=== PATIENT | male | born 1945 | race Caucasian/White ===

== ENCOUNTER 2024-07-03 15:37 | Inpatient (IN) | payer MEDICARE, SELFPAY ==
[2024-07-03] VITALS (13 sets, daily range): BP systolic 100–144; BP diastolic 56–84; PULSE 58–98; RESP 16–20; TEMP 36.1–36.3; O2SAT 96–100; BMI 26.3; BMI 30.4
--- NOTE | ~2024-07-03 | CT_ITS ---
CT brain wo con Ordering provider: Heidy Ugalde MD History: 79 years Male with . fall . Comparison: None. Technique: CT of the head without contrast. Radiation reduction technique utilized. The dose-length p roduct was 681 mGy-cm. FINDINGS: BRAIN PARENCHYMA AND CSF SPACES: Mild leukoaraiosis and diffuse cortical atrophy. Mild atheromatous d isease. No midline shift, mass effect or hemorrhage. The brain parenchyma and CSF spaces are otherwi se normal. VISUALIZED PARANASAL SINUSES: Bilateral maxillary sinus disease. MASTOIDS: Well aerated. BONES: Small osteoma in the right frontal bone. Hyperostosis frontalis interna. Otherwise, The bones appear intact. SOFT TISSUES: Visualized nasopharynx is normal. Superficial soft tissues are normal. Band is seen ar ound the left eye globe. IMPRESSION: No acute intracranial findings. Reviewed, dictated and finalized at location A.
--- NOTE | ~2024-07-03 | CT_ITS ---
EXAMINATION: CT chest abdomen pelvis wo con DATE: 07/07/2024 19:47 INDICATION: elevated lactic with unknown infection etio . TECHNIQUE: Computed tomography (CT) of the chest, abdomen, and pelvis was performed without intraveno us contrast. Automated exposure control and iterative reconstruction technique were employed. The dos e-length product was 1174.31 mGy-cm. COMPARISON: X-ray chest, 07/03/2024 FINDINGS: Exam limited by beam hardening from arm down positioning. CHEST: Thoracic aorta: Mild ectasia of the ascending and descending thoracic aorta. Lung parenchyma and airways: Mild bibasilar scar/atelectasis. Calcified granulomas. Thoracic inlet, axillae and chest wall: No mass. Moderate symmetric gynecomastia. No axillary lymphad enopathy. Mediastinum: No mass or lymphadenopathy. Heart and pericardium: Mild cardiomegaly. No pericardial effusion. Left chest AICD lead in good posit ion. Coronary artery calcifications: Moderate. Coronary stent. Pleura: Small bilateral pleural fluid collections. Thoracic bones: No acute osseous finding in the chest. ABDOMEN/PELVIS: Liver: Mildly enlarged. Indeterminate density 2.3 cm left lobe lesion. Biliary/Gallbladder: Surgical clips are present in the gallbladder fossa however the gallbladder megha ins. Gallbladder lumen is filled by hyperdense material. No bile duct dilation. Pancreas: Moderate pancreatic atrophy. Spleen: Normal. Adrenals:No mass. Kidneys: No suspicious mass, obstructing stone, or hydronephrosis. Simple left midpole cyst. GI tract: No small or large bowel dilation. Uncomplicated appearing small bowel anastomosis. Normal a ppendix. Mild rectal wall thickening with surrounding inflammatory change. Diverticulosis without div erticulitis. Mesentery/Peritoneum: No ascites, mass, or free air. Retroperitoneum: No mass Atherosclerotic calcifications of intra-abdominal arterial vessels. Pelvis: Distended urinary bladder with mild inflammatory change. Prostatomegaly with calcification. Soft Tissues: Soft tissues and body wall unremarkable. Abdominopelvic bones: No acute osseous finding in the abdomen/pelvis. Chronic appearing mild anterio r wedge deformity at L1. IMPRESSION: Small bilateral pleural effusions. Hepatomegaly. Indeterminate density 2.3 cm left liver lobe lesion, consider MRI of the liver for further characteri zation. Rectal wall thickening as can be seen with proctitis. Distended urinary bladder with mild inflammation. Correlate for symptoms of urinary retention and wit h urinalysis. Reviewed, dictated and finalized at location K. IMPRESSION: Small bilateral pleural effusions. Hepatomegaly. Indeterminate density 2.3 cm left liver lobe lesion, consider MRI of the liver for further characterization. Rectal wall thickening as can be seen with proctitis. Distended urinary bladder with mild inflammation. Correlate for symptoms of uri nary retention and with urinalysis.
--- NOTE | ~2024-07-03 | CT_ITS ---
EXAMINATION: CT brain wo con DATE: 07/07/2024 10:05 INDICATION: Altered mental status TECHNIQUE: Computed tomography (CT) of the head was performed without intravenous contrast. The dose- length product was 605.33 mGy-cm. Automated exposure control and iterative reconstruction technique w ere employed. COMPARISON: CT dated 07/03/2024 FINDINGS: Mild generalized atrophy. There are scattered mild periventricular and subcortical white ma tter changes, most likely related to small vessel ischemic disease (microangiopathy). There is intrac ranial atherosclerosis. No ventriculomegaly or midline shift. Basilar cisterns are patent. There is m ucosal thickening of the paranasal sinuses. Mastoids are pneumatized. No depressed skull fractures. N o acute infarction, hemorrhage, mass or mass effect. IMPRESSION: 1. No acute intracranial abnormality. 2: Moderate sinus disease primarily involving the left maxillary sinus. Reviewed, dictated and finalized at location A.
--- NOTE | ~2024-07-03 | XR_ITS ---
XR chest 1V portable 07/07/2024 09:42 Indication: Altered mental status. Drop in heart rate. Procedure: AP portable chest Comparison: 07/03/2024 Findings: Cardiomegaly. No focal air space disease, pulmonary edema, pleural effusion or suspected pn eumothorax. Pacemaker lead in the right ventricle. Impression: 1: No acute cardiopulmonary disease. Reviewed, dictated and finalized at location A. Impression: 1: No acute cardiopulmonary disease.
--- NOTE | ~2024-07-03 | CT_ITS ---
( CT cervical spine wo con Ordering provider: Heidy Ugalde History: . fall . Comparison: None. Technique: CT of the cervical spine was performed without contrast. Sagittal and coronal reformatted images were also obtained and reviewed. Automated exposure control and iterative reconstruction robson hnique were employed. The dose-length product was 371.65 mGy-cm. FINDINGS: VERTEBRAE: No subluxation or acute fracture. The occipital condyles are intact. DISC SPACES: Narrowing of the disc C4-C5, C5-C6 and C6-C7. Multilevel facet joint disease. Multilevel uncovertebral joint osteoarthritic changes. Bilateral narrowing of the foramina at the level of C4-C 5, C5-C6 PARASPINOUS SOFT TISSUES: Normal. Bilateral dependent atelectatic changes. IMPRESSION: No acute osseous abnormality cervical spine. Multilevel degenerative disc disease. Reviewed, dictated and finalized at location A.
--- NOTE | ~2024-07-03 | XR_ITS ---
XR chest 2V Ordering provider: Heidy Ugalde MD History: 79 years Male with . dizzy . Comparison: None. FINDINGS: MEDIASTINUM: The cardiac silhouette is slightly enlarged. Left unipolar pacemaker. LUNGS: No infiltrates, effusions or pneumothorax. OTHER: No free air under the diaphragm. Degenerative changes of the spine. IMPRESSION: No acute cardiopulmonary pathology. Reviewed, dictated and finalized at location A.
--- NOTE | 2024-07-03 15:52 | ECG_ITS ---
Test Date: 2024-07-03 16:08:44 Measurements Intervals [place] Rate: 57 P: -11 PA: 191 QRS: -26 QRSD: 146 T: 116 QT: 460 QTc: 451 Interpretive Statements SINUS BRADYCARDIA WITH OCCASIONAL VENTRICULAR PREMATURE COMPLEXES LEFT BUNDLE BRANCH BLOCK BASELINE ARTIFACT- I, AVR ABNORMAL ECG No previous ECG available for comparison Electronically Signed On 07-03-2024 16:12:56 CDT by Jim Dubois D.O.
[2024-07-03 16:18] LABS: Hematocrit 32.6 % (42.0-52.0); Immature Platelet Fraction Pct 4.6 % (0.9-11.2); Mean Corpuscular HGB Conc 33.7 g/dl (32-36); Mean Corpuscular Hemoglobin 34.6 pg (26-34); Mean Corpuscular Volume 102.5 fl (80-100); Mean Platelet Volume 10.3 fl (7.4-10.4); Platelet Count Result 99 k/mm3 (150-375); Red Blood Count 3.18 M/mm3 (4.6-6.20); Red Cell Distribution Width 16.3 % (11.5-14.5); White Blood Count 4.4 K/mm3 (4.5-10.0)
[2024-07-03 16:25] LABS: Alanine Aminotransferase 22 U/L (6-50); Alkaline Phosphatase 63 U/L (38-126); Anion Gap 12 mmol/L (4-12); Aspartate Amino Transferase 33 U/L (17-59); Bilirubin,Total 2.9 mg/dL (0.2-1.3); Blood Urea Nitrogen 8 mg/dL (9-20); Calcium 8.7 mg/dL (8.4-10.2); Carbon Dioxide 22 mmol/L (22-30); Chloride 105 mmol/L (98-107); Estimated CRCL calculation 58 ml/min; Estimated Glomerular Filt Rate > 60; Glucose 288 mg/dL (65-110); Potassium 3.4 mmol/L (3.4-5.0); Sodium 139 mmol/L (137-145)
[2024-07-03 16:50] LABS: Band Neutrophils Percent 7 % (0-6); Eosinophils Absolute Manual 0.04 K/mm3 (0.02-0.50); Eosinophils Percent Manual 1 % (0-4); Lymphocytes Absolute Manual 0.35 K/mm3 (1.1-4.5); Monocytes Percent Manual 7 % (3-9); Neutrophils Absolute Manual 3.69 K/mm3 (1.3-6.7); Neutrophils Percent Manual 77 % (46-73); Platelet Estimate Decreased (Adequate); Total Cells Counted 100
[2024-07-03 16:51] LABS: Anisocytosis 2+; Schistocytes None Seen
--- NOTE | 2024-07-03 17:02 | ED_ITS ---
HPI - Fall General Chief Complaint: Fall Stated Complaint: fall Time Seen by Provider: 07/03/24 16:51 History of Present Illness HPI Narrative: Patient getting cancer treatment and has felt more weak; while standing in line for his prescriptions, he got very dizzy/lightheaded and had +LOC, fell, hit his head. Still feels tired/weak and has a headache/nausea now after falling. Related Data Allergies Allergy/AdvReac Type Severity Reaction Status Date / Time No Known Allergies Allergy Verified 07/03/24 15:51 Review of Systems 2 Review of Systems: All systems reviewed & are unremarkable except as noted in HPI and below Exam 2 Narrative: EXAMINATION OF ORGAN SYSTEMS/BODY AREAS: Constitutional: Vital signs per nursing GENERAL: Appears uncomfortable HEAD: Laceration to the back of his head EYES: EOMI, conjunctiva normal, PERRL ENT: Hearing grossly intact LUNGS: Nonlabored breathing. HEART: [Regular rate and rhythm] ABD: [Soft], [nontender to palpation] EXT: Normal range of motion SKIN: [No rashes or lesions.] NEURO: [Alert and oriented x 3 per speaking very slowly, speech is clear. No gross focal sensory or strength deficits.] Unable to stand up without swaying PSYCH: Normal affect Course Vital Signs Vital signs: Vital Signs Temperature 97.4 F L 07/03/24 15:38 Pulse Rate 60 07/03/24 15:38 Respiratory Rate 18 07/03/24 15:38 Blood Pressure 114/67 07/03/24 15:38 Pulse Oximetry 98 07/03/24 15:38 Oxygen Delivery Room Air 07/03/24 15:38 Temperature 97.4 F L 07/03/24 15:38 Pulse Rate 59 L 07/03/24 18:00 Respiratory Rate 17 07/03/24 18:00 Blood Pressure 144/82 H 07/03/24 18:00 Pulse Oximetry 100 07/03/24 18:00 Oxygen Delivery Room Air 07/03/24 15:38 Procedures Laceration Laceration 1: Date: 07/03/24 Site: scalp Size (cm): 1 Description: linear Depth: simple, single layer Pre-repair: wound explored, irrigated and deep structures intact ====== Skin Level ====== Skin layer closed with: dermabond ====== Subcutaneous Layer ====== ====== Muscle Layer ====== ====== Tendon Layer ====== MDM - Fall MDM Narrative Medical decision making narrative: Patient states that he has been feeling slightly weak today when he was at the pharmacy picking up prescriptions and then felt lightheaded and passed out, when he woke up he was on the ground, he does have injury to his head with a laceration/bleeding. He has no focal neurologic deficits however does seem to be speaking slowly and appears quite tired, does appear to be concussed. Given pain medication, laceration is closed, CT head, C-spine obtained without acute bleeding or fracture, chest x-ray on my independent interpretation without any obvious consolidation. We did attempt to have him walk however he became extremely dizzy and nauseous and at this point I did feel he will need to be admitted since he cannot go home and he lives alone. Discussed with hospitalist for admission. I did also consider possible intracranial etiology causing symptoms but he does not have any vertigo at rest; regardless I do think he can benefit from an MRI in case there is an occult bleeding or anything causing his symptoms Lab Data 07/03/24 16:10 07/03/24 16:10 Labs: Lab Results 07/03/24 Range/Units 16:10 WBC 4.4 L (4.5-10.0) K/mm3 RBC 3.18 L (4.6-6.20) M/mm3 Hgb 11.0 L (14.0-18.0) g/dL Hct 32.6 L (42.0-52.0) % MCV 102.5 H (80-100) fl MCH 34.6 H (26-34) pg MCHC 33.7 (32-36) g/dl RDW 16.3 H (11.5-14.5) % Plt Count 99 L (150-375) k/mm3 MPV 10.3 (7.4-10.4) fl Immature Gran % (Auto) Not Reportable Neut % (Auto) Not Reportable Lymph % (Auto) Not Reportable Lassen % (Auto) Not Reportable Eos % (Auto) Not Reportable Baso % (Auto) Not Reportable Lymph # (Auto) Not Reportable Lassen # (Auto) Not Reportable Eos # (Auto) Not Reportable Baso # (Auto) Not Reportable Abs Immat Gran (auto) Not Reportable Absolute Neuts (auto) Not Reportable Absolute Nucleated RBC Not Reportable Total Counted 100 Neutrophils % (Manual) 77 H (46-73) % Band Neutrophils % 7 H (0-6) % Lymphocytes % (Manual) 8.0 L (18-44) % Monocytes % (Manual) 7 (3-9) % Eosinophils % (Manual) 1 (0-4) % Nucleated RBC % Not Reportable Abs Neuts (Manual) 3.69 (1.3-6.7) K/mm3 Abs Lymphs (Manual) 0.35 L (1.1-4.5) K/mm3 Abs Monocytes (Manual) 0.30 (0.1-0.90) K/mm3 Absolute Eos (Manual) 0.04 (0.02-0.50) K/mm3 Platelet Estimate Decreased (Adequate) % Immature Plt Fraction 4.6 (0.9-11.2) % Anisocytosis 2+ Schistocytes None seen Sodium 139 (137-145) mmol/L Potassium 3.4 (3.4-5.0) mmol/L Chloride 105 (98-107) mmol/L Carbon Dioxide 22 (22-30) mmol/L Anion Gap 12 (4-12) mmol/L BUN 8 L (9-20) mg/dL Creatinine 0.83 (0.7-1.3) mg/dL Estim Creat Clear Calc 58 ml/min Estimated GFR > 60 (59 - ) Glucose 288 H (65-110) mg/dL Calcium 8.7 (8.4-10.2) mg/dL Total Bilirubin 2.9 H (0.2-1.3) mg/dL AST 33 (17-59) U/L ALT 22 (6-50) U/L Alkaline Phosphatase 63 (38-126) U/L Total Protein 7.0 (6.3-8.2) g/dL Albumin 4.0 (3.5-5.1) g/dL Discharge Plan Discharge Clinical Impression: Concussion with loss of consciousness Patient Disposition: Still a Patient Condition: Stable
[2024-07-03] MEDS: ONDANSETRON INJ 4 MG/2 ML VIAL IV PUSH (17:17)
[2024-07-03] MEDS: ACETAMINOPHEN 325 MG TABLET 650 MG PO (17:18)
[2024-07-03] MEDS: LACTATED RINGERS 1,000 ML 999 ML IV CONT (17:18)
--- OUTSIDE RECORDS SUMMARY | 2024-07-03 17:23 | XMS_ITS | Encounter Summary ---
Author Organization [facility] Address [address] [place] [id number] Care Team Providers Care Register Repairer Name Role Phone Trupti Russo MD Primary Care Provider [phone] Encounter Details Date Type Department Care Team (Latest Contact Info) Description 01/23/2018 Abstract [facility] , Radha Pierre MD Social History Tobacco Use Types Packs/Day Years Used Date Smoking Tobacco: Never Assessed Sex and Gender Information Value Date Recorded Sex Assigned at Not on file Legal Sex Male 7:36 PM CDT Gender Identity Not on file Sexual Orientation Not on file documented as of this encounter Plan of Treatment Not on file documented as of this encounter Visit Diagnoses Not on filedocumented in this encounter Care Teams Register Repairer Relationship Specialty Start Date End Date Trupti Russo MD [address] [place] [id number] PCP - General 07/27/15 documented as of this encounter
--- OUTSIDE RECORDS SUMMARY | 2024-07-03 17:24 | XMS_ITS | Clinical Summary ---
Author Organization [facility] Address [address] [place] [id number] Care Team Providers Care Fur Polisher Name Role Phone Trupti Russo MD Primary Care Provider [phone] Social History Tobacco Use Types Packs/Day Years Used Date Smoking Tobacco: Never Assessed Sex and Gender Information Value Date Recorded Sex Assigned at Not on file Legal Sex Male 7:36 PM CDT Gender Identity Not on file Sexual Orientation Not on file Last Filed Vital Signs Vital Sign Reading Time Taken Comments Blood Pressure 160/86 12/05/2011 1:38 PM CDT Pulse - - Temperature - - Respiratory Rate - - Oxygen Saturation - - Inhaled Oxygen Concentration - - Weight 99.8 kg (220 lb) 12/05/2011 1:03 PM CDT Height 180.3 cm (5' 11 ) 12/05/2011 1:03 PM CDT Body Mass Index 30.68 12/05/2011 1:03 PM CDT Plan of Treatment Health Maintenance Due Date Last Done Comments Hepatitis C 02/27/1963 Annual Medicare Wellness Visit 2011 RSV Immunization or 60+ Years (1 - 1-dose 75+ series) 2021 COVID-19 Vaccine ( season) 2023 02/19/2021, 02/17/2021, 05/21/2020, Additional history exists DTaP, Tdap and Td Vaccines (3 - Td or Tdap) 09/15/2031 09/14/2021, 06/18/2007 Zoster Vaccines Completed 12/18/2018, 02/18, 03/15/2018 Pneumococcal Vaccine: 50+ Years Completed 09/14/2021 Meningococcal B Vaccine Aged Out No l onger eligible based on patient's age to complete this topic Meningococcal Vaccine Aged Out No lynn lorraine eligible based on patient's age to complete this topic RSV Immunizations Under 20 Months Aged Out No longer eligible based on patient's age to complete this topic Insurance [employer] Care Teams Fur Polisher Relationship Specialty Start Date End Date Trupti Russo MD [address] [phone] PCP - General 07/27/15
--- OUTSIDE RECORDS SUMMARY | 2024-07-03 17:24 | XMS_ITS | Patient Health Record ---
Author Organization [facility] Address [address] [place] [address] Care Team Providers Care Technology Sales Specialist Name Role Phone Iban Juan Primary Care Provider [phone] Reason For Referral No Information Immunizations Vaccine Route Administration Date Status Comme nts COVID-19 Moderna 1ST IM Intramuscular 04/23/2020 Administered Communications Tower Technician: Moderna. Patient tolerated well. COVID-19 Moderna 1ST IM Intramuscular 05/21/2020 Administered Plan Of Treatment No Information Insurance Providers Payer Name Payer Address Payer Phone Subscriber Number Group Number Insured Name Patient Relationship to Insured Coverage Start Date Coverage End Date [employer] [address] [place] [address] [id number] Sim Self - patient is the insured
--- OUTSIDE RECORDS SUMMARY | 2024-07-03 17:24 | XMS_ITS | Data Portability ---
Author Organization [facility] Darian Jules Address [address] [place] [address] Care Team Providers Care Health Care Recruiter Name Role Phone TRUPTI SWANN Primary Care Provider DEV John Mine Wirer OPSOPHIA EVANS Medical Oncologist [phone] ABBIE BLANK Brand Marketing Manager CORRINA LEYVA Urologist [facility] Sleep Medicine Assessment No assessment recorded. Plan of Treatment Reminders Order Date Submit Date Provider Last Modified By Organization Details Last Modified Time Details Appointments ANY 15 2024 01:00P ANNIE Col[place] Not available Not available Not available Lab HbA1c (hemoglob in A1c), blood 2024 025 [email or web address] In-Office Order, Internal Use Only DO Not Attach Compendium DO Not Attach Compendium, Do Not Delete/merge, [id number] 06/14/2024 11:01:13 glucose, fingersti ck, blood 2024 025 [email or web address] In-Office Order, Internal Use Only DO Not Attach Compendium DO Not Attach Compendium, Do Not Delete/merge, [id number] 06/14/2024 11:21:29 HbA1c (hemoglob in A1c), blood 2023 024 In-Office Order, Internal Use Only DO Not Attach Compendium DO Not Attach Compendium, Do Not Delete/merge, [id number] 01/25/2024 14:58:34 microalbu min, urine 2023 024 JOELLE In-Office Order, Internal Use Only DO Not Attach Compendium DO Not Attach Compendium, Do Not Delete/merge, [id number] 01/26/2024 13:12:18 HbA1c (hemoglob in A1c), blood 2023 024 JOELLE In-Office Order, Internal Use Only DO Not Attach Compendium DO Not Attach Compendium, Do Not Delete/merge, [id number] 09/22/2023 09:35:01 HbA1c (hemoglob in A1c), blood 2023 024 In-Office Order, Internal Use Only DO Not Attach Compendium DO Not Attach Compendium, Do Not Delete/merge, [id number] 06/21/2023 17:12:08 HbA1c (hemoglob in A1c), blood 2022 023 JOELLE In-Office Order, Internal Use Only DO Not Attach Compendium DO Not Attach Compendium, Do Not Delete/merge, [id number] 12/05/2022 17:47:38 glucose, fingersti ck, blood 2022 023 JOELLE In-Office Order, Internal Use Only DO Not Attach Compendium DO Not Attach Compendium, Do Not Delete/merge, [id number] 12/05/2022 17:47:51 Referral None recorded. Procedures None recorded. Surgeries None recorded. Imaging None recorded. Medication Orders metformin 500 mg tablet 2024 025 [facility] [place], [address], 06/14/2024 11:16:32 fluticaso ne propionat e 50 mcg/actua tion nasal spray,chantell pension 2023 024 [facility], [address] [place], [address], 01/25/2024 14:58:47 Jardiance 25 mg tablet 2023 025 [facility], [address] [place], [address], 06/14/2024 11:08:57 Rybelsus 7 mg tablet 2023 024 [email or web address] [facility], [address] [place], [address], 06/14/2024 11:08:56 Invokana 300 mg tablet 2023 024 [facility], [address] [place], [address], 01/25/2024 15:00:16 lisinopri l 20 mg tablet 2023 024 [facility], [address] [place], [address], 09/20/2023 12:59:52 Invokana 300 mg tablet 2023 024 [facility], [address] [place], [address], 01/25/2024 15:00:16 gabapenti n 100 mg capsule 2023 024 [facility], [address] [place], [address], 06/21/2023 17:19:21 Patient TargetsNo targets recorded. Patient Instructions Encounter Date Encounter Id Patient Instructions Last Modified By Organization Details Last Modified Time 06/21/2023 [id number] type 2 diabetes: care instructions Not available 06/21/2023 17:12:07 neuropathic pain : care instructions Not available 06/21/2023 17:19:16 09/20/2023 [id number] discussed care giving for spouse who as falls and dementia and tremors Not available 09/20/2023 13:03:00 01/25/2024 [id number] eustachian tube problems: care instructions Not available 01/25/2024 14:58:50 type 2 diabetes: care instructions Not available 01/25/2024 14:58:34 06/14/2024 [id number] A healthy lifestyle: care instructions [email or web address] Not available 06/14/2024 11:22:26 Reason for Referral None Reported. Results Created Date Observation Date Name Description Value Unit Range Abnormal Flag Note LastModifiedBy Organization Detail LastModifiedTime 12/06/1912/05/2022 gluco se, henrietta hernandez, blood Blood Glucose: mg/dl 169 Not Available In-Off ice Order Internal Use Only DO Not Attach Compendium DO Not Attach Compendium, Do Not Delete/merge, [id number] 12/05/2022 17:17:42 12/06/19 23 12/05/2022 HbA1c (hemo globi n A1c), blood HbA1c 9.5 Not Available In-Office Order Internal Use Only DO Not Attach Compendium DO Not Attach Compendium, Do Not Delete/merge, [id number] 12/05/2022 17:17:38 06/21/19 24 06/21/2023 HbA1c (hemo globi n A1c), blood HbA1c 9.3 Not Available In-Office Order Internal Use Only DO Not Attach Compendium DO Not Attach Compendium, Do Not Delete/merge, [id number] 06/21/2023 16:34:07 09/22/19 24 09/22/2023 HbA1c (hemo globi n A1c), blood HbA1c 9.0 Not Available In-Office Order Internal Use Only DO Not Attach Compendium DO Not Attach Compendium, Do Not Delete/merge, [id number] 09/20/2023 12:33:45 01/18/20 24 01/19/2024 BASIC METAB OLIC PANEL glucose 171 mg/dL 65-99 high Fasti ng refer ence inter nilton For someo ne witho ut known diabe yanet, a gluco se value >125 mg/dL indic ates that they may have diabe yanet and this shoul d be confi rmed with a follo w-up test. Not Available [facility] [address] [place], [address], 01/19/2024 14:25:31 01/18/20 24 01/19/2024 BASIC METAB OLIC PANEL urea nitrogen (BUN) 9 mg/dL 7-25 normal Not Available [facility] [address] [place], [address], 01/19/2024 14:25:31 01/18/20 24 01/19/2024 BASIC METAB OLIC PANEL creatinine 0.83 mg/dL 0.70-1 .28 normal Not Available [address], [address], 01/19/2024 14:25:31 01/18/20 24 01/19/2024 BASIC METAB OLIC PANEL eGFR 90 mL/mi n/1.7 3m2 > or = 60 normal Not Available [address], [address], 01/19/2024 14:25:31 01/18/20 24 01/19/2024 BASIC METAB OLIC PANEL BUN/creatini ne ratio SEE NOTE: (calc ) 6-22 Not Repor marcell: BUN and Creat inine are withi n refer ence range . Not Available [address], [address], 01/19/2024 14:25:31 01/18/20 24 01/19/2024 BASIC METAB OLIC PANEL sodium 143 mmol/ L 135-14 6 normal Not Available [address], [address], 01/19/2024 14:25:31 01/18/20 24 01/19/2024 BASIC METAB OLIC PANEL potassium 3.3 mmol/ L 3.5-5. 3 low Not Available [address], [address], 01/19/2024 14:25:31 01/18/20 24 01/19/2024 BASIC METAB OLIC PANEL chloride 104 mmol/ L 98-110 normal Not Available [address], [address], 01/19/2024 14:25:31 01/18/20 24 01/19/2024 BASIC METAB OLIC PANEL carbon dioxide 25 mmol/ L 20-32 normal Not Available [address] [place], [address], 01/19/2024 14:25:31 01/18/20 24 01/19/2024 BASIC METAB OLIC PANEL calcium 9.3 mg/dL 8.6-10 .3 normal Not Available [facility] [address] [place], [address], 01/19/2024 14:25:31 01/25/20 24 01/25/2024 HbA1c (hemo globi n A1c), blood HbA1c 6.7 Not Available In-Office Order Internal Use Only DO Not Attach Compendium DO Not Attach Compendium, Do Not Delete/merge, [id number] 01/25/2024 09:19:37 01/26/20 24 01/26/2024 micro album in, urine Microalbumin 20 Not Available In-Of fice Order Internal Use Only DO Not Attach Compendium DO Not Attach Compendium, Do Not Delete/merge, [id number] 01/25/2024 09:19:49 06/15/19 25 06/14/2024 gluco se, finge rstic k, blood Blood Glucose: mg/dl 267 Not Available In-Off ice Order Internal Use Only DO Not Attach Compendium DO Not Attach Compendium, Do Not Delete/merge, [id number] 06/14/2024 11:13:35 06/15/19 25 06/14/2024 HbA1c (hemo globi n A1c), blood HbA1c 9.3 Not Available In-Office Order Internal Use Only DO Not Attach Compendium DO Not Attach Compendium, Do Not Delete/merge, [id number] 06/14/2024 10:39:36 Result Notes None recorded. 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 Trupti Swann MD Attn: Accounting ,[address] [facility], [place], [address] , [place] - [facility] 3 17:30:36 Type 2 diabetes mellitus without complica tion 660619296 Active 2022 Trupti Swann MD Attn: Accounting ,[address] [facility], [place], [address] , [place] - [facility] 3 17:30:36 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 540323557 Active 2022 Liver metastas is Trupti Swann MD Attn: Accounting ,[address] [facility], [place], [address] , [place] [facility] 3 17:30:36 Divertic ulosis of colon 082137734 Active 2022 Trupti Swann MD Attn: Accounting ,[address] [facility], [place], [address] , [place] [facility] 3 18:34:53 Hemorrho ids 28595611 Active 2022 Trupti Swann MD Attn: Accounting ,[address] [facility], [place], [address] , [place] [facility] 3 18:35:00 History of adenomat ous polyp of colon 408614487 Active 2022 Trupti Swann MD Attn: Accounting ,[address] [facility], [place], [address] , [place] [facility] 3 12:13:52 Chronic systolic heart failure 683883383 Active 2022 with EF 26% in 2022 Trupti Swann MD Attn: Accounting ,[address] [facility], [place], [address] , [place] [facility] 4 08:58:55 Automati c implanta ble cardiac defibril lator in situ 174818145 Active 2020 Trupti Swann MD Attn: Accounting ,[address] [facility], [place], [place], [address] [place] [address] , [facility] 4 08:58:08 Coronary atherosc lerosis 742365766 Active 2022 Trupti Swann MD Attn: Accounting ,[address] [facility], [place], [place], [address] [place] [address] , [facility] 4 08:58:19 Nonsusta ined ventricu lar tachycar nicolasa 537133610 Active Trupti Swann MD Attn: Accounting ,[address] [facility], [place], [place], [address] [place] [address] , [facility] 4 08:58:12 Neuropat hy 612883107 Active 2023 Trupti Swann MD Attn: Accounting ,[address] [place], [place], [address] [place] [address] , [facility] 4 20:43:53 Uncontro lled type 2 diabetes mellitus 267150803 Active 2023 Trupti Swann MD Attn: Accounting ,[address] [facility], [place], [place], [address] [place] [address] , [facility] 4 20:43:48 Mixed hyperlip idemia 014876581 Active 2020 Trupti Swann MD Attn: Accounting ,[address] [place], [place], [address] [place] [address] , [facility] 4 08:13:30 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 Trupti Swann MD Attn: Accounting ,[address] [place], [place], [address] [place] [address] , [facility] 4 14:51:32 Visual disturba nce 19140505 Completed 201202/19/2014 Location : None;Sev erity: Moderate ;Progres s: Stable;A dded By: Trupti Swann;Add to Current Problems : NO Not Available [facility] 7 07:59:15 Feces contents abnormal 201870875 Completed 201212/07/2012 Location : None;Sev erity: Moderate ;Progres s: Stable;A dded By: Trupti Swann;Add to Current Problems : NO Not Available [facility] 7 07:59:15 Screenin g procedur e Completed 201304/20/2014 Location : None;Sev erity: Moderate ;Progres s: Stable;A dded By: Trupti Swann;Add to Current Problems : YES Trupti Swann MD Attn: Accounting ,[address] [place], [place], [address] [place] [address] , [place] [facility] 7 15:18:04 Screenin g for malignan t neoplasm of rectum Completed 201304/20/2014 Location : None;Sev erity: Moderate ;Progres s: Stable;A dded By: Trupti Swann;Add to Current Problems : YES Not Available [facility] 7 07:59:15 Screenin shant procedur e Completed 201501/16/2017 Location : None;Sev erity: Moderate ;Progres s: Stable;A dded By: Trupti Swann;Add to Current Problems : YES Trupti Swann MD Attn: Accounting ,[address] [place], [place], [address] [place] [address] , [place] [facility] 7 15:18:04 General symptom 859835568 Completed 201501/16/2017 Location : None;Sev erity: Moderate ;Progres s: Stable;A dded By: Trupti Swann;Add to Current Problems : YES Trupti Swann MD Attn: Accounting ,[address] [place], [place], [address] [place] [address] , [place] [facility] 7 15:18:12 Benign essentia l hyperten jessica 1294463 Completed 201202/19/2014 Location : None;Sev erity: Moderate ;Progres s: Stable;A dded By: Liz Raya;Add to Current Problems : NO Not Available [facility] 7 07:59:16 Hematoch ezia 022584445 Completed 201501/16/2017 Location : None;Sev erity: Moderate ;Progres s: Stable;A dded By: Liz Raya;Add to Current Problems : YES Trupti Swann MD Attn: Accounting ,[address] [place], [place], [address] [place] [address] , [place] [facility] 7 15:18:07 Fever 718859642 Completed 201512/10/2015 Location : None;Sev erity: Moderate ;Progres s: Stable;A dded By: Starr Chan; Add to Current Problems : YES Not Available [facility] 7 07:59:16 Essentia l hyperten jessica 17548436 Active 2013 Location : None;Sev erity: Moderate ;Progres s: Stable;A dded By: Vivian West i;Savanna dd to Current Problems : YES Trupti Swann MD Attn: Accounting ,[address] [place], [place], [address] [place] [address] , [place] [facility] 3 17:30:36 Residual foreign body in soft tissue 1058796 Completed 201101/05/2012 Location : None;Sev erity: Moderate ;Progres s: Stable;A dded By: Day Kelley;Add to Current Problems : NO Not Available [facility] 7 07:59:16 Hypertri glycerid emia 475981712 Active 2016 Trupti Swann MD Attn: Accounting ,[address] [place], [place], [address] [place] [address] 3 17:30:36 Notes:Some problems listed i n Documents: #[id number], #[id number] could not be added to this patient's chart. Please review these documents and add these problems to the patient's chart manually as needed. Problem Notes None recorded. Procedures Surgical History Date Name Laterality Status Provider Name and Address Organization Details Recorded Time 12/02/19 Prostate Biopsy completed Trupti Swann MD Attn: Accounting, [address] [place], [place], [address] [place] [address], [place] [facility] 12/01/2021 20:43:32 05/08/19 21 Aicd, dual chamber completed Trupti Swann MD Attn: Accounting, [address] [facility], [place], [address], [place] [facility] 05/10/2020 21:51:03 01/15/20 20 laparotomy completed Trupti Swann MD Attn: Accounting, [address] [facility], [place], [address], [facility] 12/05/2022 17:24:51 12/28/19 20 placement of stent in cardiac conduit completed Trupti Swann MD Attn: Accounting, [address] [facility], [place], [address], [facility] 12/05/2022 17:22:33 12/25/19 20 laparoscopic cholecystectomy completed Trupti Swann MD Attn: Accounting, [address] [place], [address], [facility] 12/27/2019 18:05:38 12/25/19 20 laparotomy completed Trupti Swann MD Attn: Accounting, [address] [place], [address], [facility] 12/05/2022 17:23:30 Imaging Results None recorded. Procedure Notes None recorded. Medical Equipment None Reported. Allergies Allergen ID Allergen Name Allergen Category Reaction Reaction Severity Criticality Documentation Date Start Date Code Code System Note Provider Name and Address Organization Details Recorded Time 050322 No known allergy (situatio n) Not available Not available Not available Not available 09/14/2023 22956 6003 SNOMED Not Available Not Available Not Available 07744 lisinopri l medicatio n Not available Not available Not available 03/23/20162015 57679 RxNorm React ion: Hypon atrem ia;Se verit y: Mild; Comme nt: Aller gy Type: Adver se React ion; Not Available Not Available Not Available Medications Name Sig Start Date Stop Date Status Note LastModified by Organization Details LastModified Time cyclobenza shahnaz 10 mg tablet take 1/2 tab at bedtime. Repeat 1/2 tab dose if not able to sleep in 30 minutes. 05/10 completed Not Available Not Available Not Available furosemide 40 mg tablet Take 1 tablet by mouth twice daily active Not Available Not Available No t Available atorvastat in 40 mg tablet TAKE 1 TABLET BY MOUTH ONCE DAILY 01/24 completed Not Available Not Available Not Available metformin 500 mg tablet TAKE 2 TABLETS BY MOUTH TWICE DAILY active Not Available Not Available No t Available atorvastat in 80 mg tablet 06/20 completed Not Available Not Available Not Available atorvastat in 20 mg tablet TAKE 1 TABLET BY MOUTH NIGHTLY active Not Available Not Available No t Available trazodone 50 mg tablet 1-2 at bedtime as needed for insomina 09/14 completed Not Available Not Available Not Available alprazolam 1 mg tablet 05/10 completed Not Available Not Available Not Available metoprolol succinate ER 50 mg tablet,ext ended release 24 hr TAKE 1 & 1/2 (ONE & ONE-HALF) TABLETS BY MOUTH ONCE DAILY 02/17 completed Not Available Not Available Not Available hydrocodon e 5 mg-acetami nophen 325 mg tablet 05/10 completed Not Available Not Available Not Available lisinopril 20 mg tablet TAKE 1 TABLET BY MOUTH ONCE DAILY active Not Available Not Available No t Available ondansetro n HCl 4 mg tablet TAKE 1 TABLET BY MOUTH EVERY 6 HOURS NEEDED FOR NAUSEA AND VOMITING 06/14 completed Not Available Not Available Not Available metoprolol succinate ER 100 mg tablet,ext ended release 24 hr TAKE 1 TABLET BY MOUTH ONCE DAILY active Not Available Not Available No t Available potassium chloride ER 10 mEq tablet,ext ended release Take 1 tablet every day by oral route. active Not Available Not Available No t Available clopidogre l 75 mg tablet TAKE 1 TABLET BY MOUTH ONCE DAILY 05/10 completed Not Available Not Available Not Available amlodipine 5 mg tablet Take 1 tablet every day by oral route. 01/17 completed Not Available Not Available Not Available ciprofloxa mumtaz 500 mg tablet 12/28 completed Not Available Not Available Not Available aspirin 81 mg tablet,del ayed release 81 mg by oral route. active Not Available Not Available No t Available spironolac tone 25 mg tablet TAKE 1 TABLET BY MOUTH ONCE DAILY active Not Available Not Available No t Available potassium chloride ER 20 mEq tablet,ext ended release(pa rt/cryst) TAKE 1 TABLET BY MOUTH TWICE DAILY 07/15 completed Not Available Not Available Not Available magnesium oxide 400 mg (241.3 mg magnesium) tablet TAKE 1 TABLET BY MOUTH ONCE DAILY active Not Available Not Available No t Available pantoprazo le 40 mg tablet,del ayed release TAKE 1 TABLET BY MOUTH ONCE DAILY active Not Available Not Available No t Available lisinopril 10 mg tablet TAKE 1 TABLET BY MOUTH EVERY 24 HOURS 06/14 completed Not Available Not Available Not Available nitroglyce rin 0.4 mg sublingual tablet DISSOLVE ONE TABLET UNDER THE TONGUE EVERY 5 MINUTES NEEDED FOR CHEST PAIN. DO NOT EXCEED A TOTAL OF 3 DOSES IN 15 MINUTES active Not Available Not Available No t Available niacin ER 500 mg capsule,ex tended release Take 1 capsule(s ) by mouth daily 12/09 completed RxNorm : 145245 ;Allow Substi tution : True Not Available Not Available Not Available aspirin 81 mg chewable tablet Chew 1 tablet(s) by mouth [facility] 12/09 completed RxNorm : 910121 ;Allow Substi tution : True Not Available Not Available Not Available gabapentin 100 mg capsule Take 1 capsule 3 times a day by oral route for 30 days. 2023 active Not Available Not Available Not Avai lable levofloxac in 500 mg tablet 04/06 completed Not Available Not Available Not Available fluticason e propionate 50 mcg/actuat ion nasal spray,susp ension Grimes 2 sprays every day by intranasa l route for 30 days. active Not Available Not Available No t Available Tylenol 650 mg tablet,ext ended release Take 2 tablets as needed by oral route. 09/14 completed Not Available Not Available Not Available metoprolol tartrate 25 mg tablet TAKE 1 TABLET BY MOUTH EVERY 12 HOURS 09/14 completed never taken this Not Available Not Available Not Available magnesium bid 09/14 completed Not Available Not Available Not Available famotidine 20 mg bid 05/10 completed Not Available Not Available Not Available amlodipine Take 5mg once daily 01/10 completed Not Available Not Available Not Available melatonin 5 mg tablet Take by oral route. 09/14 completed Not Available Not Available Not Available magnesium 400 mg (as magnesium oxide) capsule take one by mouth daily 07/15 completed Not Available Not Available Not Available Invokana 300 mg tablet Take 1 tablet every day by oral route. 01/24 completed Not Available Not Available Not Available Farxiga 10 mg tablet TAKE 1 TABLET BY MOUTH ONCE DAILY IN THE MORNING 06/20 completed Not Available Not Available Not Available potassium chloride ER 20 mEq tablet,ext ended release TAKE 1 TABLET BY MOUTH TWICE DAILY 09/16 completed Not Available Not Available Not Available Jardiance 25 mg tablet Take 1 tablet every day by oral route. 06/14 completed Not Available Not Available Not Available Rybelsus 7 mg tablet TAKE 1 TABLET BY MOUTH EVERY DAY ON AN EMPTY STOMACH WITH NO MORE THAN 4 OUNCES OF WATER. WAIT 30 MIN BEFORE EATING, DRINKING, OR TAKING OTHER ORAL MEDICATIO NS 06/14 completed Not Available Not Available Not Available Rybelsus 3 mg tablet Take 3 mg by oral route. 09/19 completed Not Available Not Available Not Available Orgovyx 120 mg tablet Take 1 tablet every day by oral route for 30 days. 09/16 completed Not Available Not Available Not Available Vitals Date Recorded Body height Body mass index (BMI) Body weight Body temperature Oxygen saturation Oxygen saturation in Arterial blood by Pulse oximetry Heart rate Systolic blood pressure Diastolic blood pressure Provider Name and Address Organization Details Last Updated DateTime 3 176.53 cm 28.3 kg/m2 50814.3 2 g 97.3 [degF] 96 % 96 % 75 /min 103 mm[Hg] 71 mm[Hg] Aga Wolfe [place] [facility] 3 17:01:23 Date Recorded Body height Body mass index (BMI) Body weight Body temperature Oxygen saturation Oxygen saturation in Arterial blood by Pulse oximetry Heart rate Systolic blood pressure Diastolic blood pressure Provider Name and Address Organization Details Last Updated DateTime 4 176.53 cm 29.5 kg/m2 55626.8 1 g 97.1 [degF] 99 % 99 % 68 /min 133 mm[Hg] 77 mm[Hg] Liz Raya [place] [facility] 4 16:26:42 Date Recorded Body height Body mass index (BMI) Body weight Body temperature Oxygen saturation Oxygen saturation in Arterial blood by Pulse oximetry Heart rate Systolic blood pressure Diastolic blood pressure Provider Name and Address Organization Details Last Updated DateTime 4 176.53 cm 29.5 kg/m2 47761.2 5 g 97.5 [degF] 96 % 96 % 78 /min 149 mm[Hg] 87 mm[Hg] Asha Garza MA [facility] 4 12:24:12 Date Recorded Systolic blood pressure Diastolic blood pressure Provider Name and Address Organization Details Last Updated DateTime 09/20/2023 150 mm[Hg] 83 mm[Hg] Trupti Swann MD Attn: Accounting,[address] [place], [address], [facility] 09/20/2023 12:41:36 Date Recorded Body height Body mass index (BMI) Body weight Body temperature Oxygen saturation Oxygen saturation in Arterial blood by Pulse oximetry Heart rate Systolic blood pressure Diastolic blood pressure Provider Name and Address Organization Details Last Updated DateTime 4 176.53 cm 27.6 kg/m2 06943.0 6 g 98.3 [degF] 96 % 96 % 72 /min 110 mm[Hg] 75 mm[Hg] Char Choudhary MA [facility] 4 14:31:25 Date Recorded Body height Body mass index (BMI) Body weight Oxygen saturation Oxygen saturation in Arterial blood by Pulse oximetry Body temperature Heart rate Systolic blood pressure Diastolic blood pressure Provider Name and Address Organization Details Last Updated DateTime 5 176.53 cm 27.4 kg/m2 80727.3 7 g 96 % 96 % 97.3 [degF] 68 /min 106 mm[Hg] 67 mm[Hg] Asha Garza MA [facility] 5 10:58:15 Social History Question Answer Notes LastModified by Organizat ion Details LastModified Time Tobacco Smoking Status Never Smoker Iris Camp MA [facility], [facility] 01/16/2017 15:01:42 Do You Have An Advance Directive? Yes Information not available 09/14/2021 What Is Your Level Of Alcohol Consumption? None Information not available 09/14/2021 Are You Blind Or Do You Have Difficulty Seeing? No Information not available 09/14/2021 What Is Your Level Of Caffeine Consumption? Occasional Information not available 09/14/2021 Are You Currently Employed? No Information not available 09/14/2021 Are You Deaf Or Do You Have Serious Difficulty Hearing? No Information not available 09/14/2021 What Type Of Diet Are You Following? REGULAR Information not available 09/14/2021 What Was The Date Of Your Most Recent Tobacco Screening? 06/14/2024 Information not available 06/14/2024 What Is Your Relationship Status? Information not available 09/14/2021 Do You Use Your Seat Belt Or Car Seat Routinely? Yes Information not available 09/14/2021 Do You Have Smoke And Carbon Monoxide Detectors In Your Home? Yes Information not available 09/14/2021 Are You Passively Exposed To Smoke? No Information no t available 09/14/2021 Do You Use Any Illicit Or Recreational Drugs? No Information not available 09/14/2021 Has Tobacco Cessation Counseling Been Provided? No Information not available 09/20/2023 Do You Or Have You Ever Used Any Other Forms Of Tobacco Or Nicotine? No [email or web address] Information not available 07/15/2022 Sex: Male Functional Status Question Answer Note LastModified by Organizat ion Details LastModified Time Are you able to care for yourself? Yes Information not available 09/14/2021 What is your exercise level? Occasional Information not available 09/14/2021 Mental Status None recorded. Family History Relationship Description Onset Age of this Age Resolved Age Notes LastModified by Organization Details LastModified Time Father Carotid artery stenosis 83 Not available 2021 12:00:00 Father Coronary arterioscler osis 83 triple bypass Not available 09/14/2021 12:00:19 Father Pneumonia 83 Not available 09/14/2021 12:00:44 Mother Diabetes mellitus 82 Not available 2021 12:01:01 Brother Sepsis 71 mono Not available 12:01:52 Brother Viral hepatitis C 71 Not available 05/2023 12:51:25 Medical History Condition Response Heart Attack (PR) Y Cancer Y Heart Failure Y Immunizations Vaccine Type Date Status Note Provider [place] ramos and Address Organization Details Recorded Time Influenza, high-dose, trivalent, PF 8 completed Trupti Swann MD Attn: Accounting,[address] [facility], [place], [place], [address] [place] [address], [place] [facility] 06/05/2023 08:55:12 zoster live 8 completed Trupti Swann MD Attn: Accounting,[address] [facility], [place], [place], [address] [place] [address], [place] [facility] 12/05/2022 17:30:43 COVID-19, mRNA, LNP-S, PF, 100 mcg/0.5mL dose or 50 mcg/0.25mL dose 1 completed ANNIE Tejada Attn: Accounting,204 1 [facility], [place], [place], [address] [place] [address], [place] [facility] 06/14/2024 11:02:34 COVID-19, mRNA, LNP-S, PF, 100 mcg/0.5mL dose or 50 mcg/0.25mL dose 1 completed ANNIE Tejada Attn: Accounting,[address] 1 [facility], [place], [place], [address] [place] [address], [place] [facility] 06/14/2024 11:02:34 COVID-19, mRNA, LNP-S, PF, 100 mcg/0.5mL dose or 50 mcg/0.25mL dose 1 completed ANNIE Tejada Attn: Accounting,204 1 [facility], [place], [place], [address] [place] [address], [place] [facility] 06/14/2024 11:02:34 zoster recombinant 8 completed Trupti Swann MD Attn: Accounting,204 1 [facility], [place], [address] [place] [address], [place] [facility] 06/05/2023 08:55:11 zoster recombinant 9 completed Trupti Swann MD Attn: Accounting,204 1 [facility], [place], [address] [place] [address], [place] [facility] 12/05/2022 17:30:43 influenza, unspecified formulation 0 completed Trupti Swann MD Attn: Accounting,204 1 [facility], [place], [address] [place] [address], [place] [facility] 12/05/2022 17:29:29 Pneumococcal conjugate PCV20, polysaccharide [id number] conjugate, adjuvant, PF 2 completed ANNIE Tejada Attn: Accounting,[address] 1 [facility], [place], [address] [place] [address], [place] [facility] 06/14/2024 11:02:34 COVID-19, mRNA, LNP-S, PF, 100 mcg/0.5mL dose or 50 mcg/0.25mL dose 1 completed Trupti Swann MD Attn: Accounting,204 1 [facility], [place], [address] [place] [address], [facility] 06/05/2023 08:55:12 Influenza, high-dose, trivalent, PF 9 completed Trupti Swann MD Attn: Accounting,204 1 [facility], [place], [address] [place] [address], [place] [facility] 06/05/2023 08:55:12 Influenza, adjuvanted, trivalent, PF 4 completed ANNIE Tejada Attn: Accounting,[address] 1 [facility], [place], [address] [place] [address], [place] [facility] 06/14/2024 11:02:16 Pneumococcal conjugate PCV20, polysaccharide [id number] conjugate, adjuvant, PF 4 completed ANNIE Tejada Attn: Accounting,[address] 1 [facility], [place], [address] [place] [address], [place] [facility] 06/14/2024 11:02:16 Influenza, split virus, quadrivalent, preservative 7 completed Not Available [facility] 04/06/2019 02:34:26 Td (adult), 5 Lf tetanus toxoid, preservative free, adsorbed 2 completed Carolyn Bliss [place] null, [place] [facility] 09/14/2021 12:37:31 Tdap 8 completed Trupti Swann MD Attn: Accounting,[address], [place], [address], [facility] - [facility] 12/05/2022 17:30:43 Past Encounters Encounter ID Performer Location Encounter Start Date Encounter Closed Date Diagnosis/Indication Diagnosis SNOMED-CT Code Diagnosis ICD10 Code Diagnosis Note [id number] Karon saucedo [facility] [address] [facility] [address] [place] [address] 01/07/2016 12:01:06 01/12/2016 09:17:20 Prostate specific antigen above reference range 105269262 R97.20 [id number] Trupti Swann MD [facility] [address] [facility] [address] [facility] [address] 01/16/2017 14:37:07 01/17/2017 10:38:47 Essential hypertension 26160219 I10 no dose change and see me yearly. You decline prostate rectal check and urologist referral but agree to recheck PSA which was hihg last year Administra tion of influenza vaccine 12095584 Z23 Screening for malignant neoplasm of prostate 492450672 Z12.5 [id number] Trupti Swann MD [facility] [address] [facility] [address] [place] [address] 12/05/2019 10:48:57 12/05/2019 15:20:44 Insomnia 608237874 G47.00 I think that the muscle relaxer for the neck will also help trigger a good nights rest-- call with nurse update tomorrow to let me know how the sleep goes tonight Nausea present 771565918 R11.0 clear liquids and easy to digest foods-- avoid greasy and fatty foods and drink extra water or gatorade-- call if not better once able to sleep Strain of neck muscle 36 8088526 S16.1XXA use muscle relaxer at bedtime-- take 1/2 tab -- and if not able to fall asleep in an 1/2 hour-- take the other half-- take once a day as needed and follow up with phone update to nurse tomorrow. I would like to get an XRAY neck if not better Essential hypertension 49615740 I10 self report that BP is fine wiht no medication and I advised to schedule an annual check up with in office BP check at [facility] e once YULI carvajal ns allow [id number] Trupti Swann MD [facility] [address] [place] [address] 12/16/2019 11:18:41 12/16/2019 15:58:21 Coronary arteriosclerosis in [place] artery 4936552638 107 I25.10 History of myocardial infarction 815264641 I25.2 STEMI on 12/07/2019 Insomnia 658317863 G47.0 0 call with nurse update tomorrow to let me know how the sleep goes tonight -he will call to let us know if able to sleep Long-term drug therapy 250531420 Z79.899 I would like to recheck sodium and other electrolyt es and renal functions- -don't eat anything for 4 hours before testing-- call to [facility] to set up the test- Hx of hyponatrem ia in the past when he was placed on LISINOPRIL 2015 [id number] STEVE Peters [facility] [address] [place] [address] 01/09/2020 10:53:34 01/10/2020 13:10:55 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 Stented co ronary artery 437598009 Z95.5 two stents placed a few weeks ago Gastrointe stinal hemorrhage 37900687 K92.2 will get CBC and cmp via HH Impaired mobility 183851 05 Z74.09 will need for blood draws PT ect. Anal fissure 29920472 K6 0.[address] Garza saw yesterday treating with lidocaine, nitro and steroidSee ing again on Jan 26thalso on miralax Complex renal cyst 39899 54769 3655414 N28.1 once he is feeling better, I rec US . CT showes high density right renal cyst stable from prior exam on 12/17 [id number] Trupti Swann MD [facility] [address] [place] [address] 09/14/2021 10:52:03 09/15/2021 14:09:39 Adult health examination 019765851 Z00.00 Health Risk Assessment collected and reviewed Blood gluc ose outside reference range 774873373 R73.09 will check for DM Essential hypertension 80397575 I10 BP is fine --no medication change made today and I advised cont care with Dr Meraz-- note lowering BP more may trigger more of orthostasi s/light headed feeling--w ith known CAD-- defer to carediolog ist Obstructiv e sleep apnea syndrome 62461823 G47.33 cont to follow up with sleep med semi annually and stable with use of CPAP Administra tion of diphtheria and tetanus vaccine 02105595 Z23 advised tetanus update and agreed Administra tion of pneumococcal vaccine 46427602 Z23 advised pneumonia vaccine and agreed Screening for malignant neoplasm of prostate 187901767 Z12.5 he would like PSA ' since a blood test 'He reports he would act if abnormal [id number] ANNIE Tejada [facility] [address] [facility] [address] [place] [address] 10/11/2021 14:52:20 10/11/2021 17:32:14 Type 2 diabetes mellitus without complication 929432114 E11.[address] in November. He has cut out all fruit juices-bef ore DM dx was drinking a gallon of orange juice and grape juice every week. We discussed easy ways to decrease blood sugar including limiting sugary beverages including fruit juices, sodas, and sweet teas. We also discussed cutting back on red meats and instead choosing leaner options such as chicken, fish, and turkey. We also discussed limiting salt intake and avoiding foods high in saturated fats like cheese, butter, and ice cream. We discussed acceptable caloric intake and exercise goals. I have given him some patient education to review over at home as well. Discussed with patient and spouse, the pathophysi ology of type II diabetes and insulin resistance . Discussed the potential complicati ons and vascular compromise of uncontroll ed blood sugars, such as stroke, CAD, retinopath y and kidney disease. We reviewed current HgA1C and goal of <7 A1C. Lipid goals discussed. Importance of UTD immunizati ons, yearly eye exams, and foot checks. We discussed in great length carb counting, label reading and her daily carbohydra te goals. Choosing healthy carbs like fruits, veggies, whole grains, and lean proteins. Avoiding any sugar in beverages, and how exercise is important in maintainin g healthy blood sugars and a healthier weight. We spent more than 25 minutes in this counseling session. Obesity 993945133 E66.9 [id number] Trupti Swann MD [facility] [address] [place] [address] 05/10/2022 13:38:39 05/11/2022 10:17:35 Heart disease 85158802 I51.[address]-- clarify meds and will order nitroglyce rin History of malignant neoplasm of small bowel 994104527 Z85.068 follows with oncologist regularly- - last visit was 05/09/22 Electrolyte imbalance 10 8208860 E87.8 had blood work with last oncologist visit and electrolyt es were OK Hypomagnesemia 321347684 E83.42 refill of magnesium was sent and he is advised to restart taking the supplement Type 2 nicolasa betes mellitus without complication 820914344 E11.9 will check the DM at this time to assure control is adequate-- consider FARXIGA [id number] ANNIE Tejada [facility] [address] [facility] [address] [place] [address] 07/15/2022 14:46:45 07/15/2022 17:07:40 Type 2 diabetes mellitus without complication 792114464 E11.9 Given hx of heart disease and a1c 8.7 will start on 10mg of Farxiga. F/U in 3 months for recheck.He does admit he drinks a lot of fruit juices and eats a lot of potatoes and red meats. We discussed easy ways to decrease blood sugar including limiting sugary beverages including fruit juices, sodas, and sweet teas. We also discussed cutting back on red meats and instead choosing leaner options such as chicken, fish, and turkey. We also discussed limiting salt intake and avoiding foods high in saturated fats like cheese, butter, and ice cream. We discussed acceptable caloric intake and exercise goals. I have given him some patient education to review over at home as well. 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 901637563 C61 Getting radiation M-T for primary prostate cancer has done 32 out of 45 treatments Liver metastasis - is on Orgovyx - getting f/u ultrasound on monday Obesity 564862247 E66.9 [id number] Trupti Swann MD [facility] [address] [place] [address] 09/16/2022 14:36:13 09/19/2022 10:00:27 Adult health examination 306088734 Z00.00 Health Risk Assessment collected and reviewed Screening for malignant neoplasm of colon 499067767 Z12.11 Essential hypertension 37260125 I10 BP is fine --no medication change made today and I advised cont care with Dr Meraz-- note lowering BP more may trigger more of orthostasi s/light headed feeling--w ith known CAD-- defer to cardiologi [facility] ed type 2 diabetes mellitus 474694190 E11.65 since FARXIGA is at max and Hgb A 1 C is high-- will add METFORMIN 500 mg po BID #180 and 3 refills [id number] Trupti Swann MD [facility] [address] [place] [address] 12/05/2022 15:36:26 12/06/2022 10:12:40 Type 2 diabetes mellitus without complication 027412269 E11.9 advised diabetes EYE exam which he reports he had in Mar-- will have staff to attempt to get the resultscon t RYBELSUS/ FARXIGA and METFORMINt he Hgb A1C is a bit better even though not a full 3 months since September 16 Check and the random glucose today is MUCH better than in the past Essential hypertension 83357303 I10 BP is fine --no medication change made today 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 381577338 C61 cont with care with urologist/ oncologist History of malignant neoplasm of small bowel 982509809 Z85.068 follows with oncologist regularly- - last visit was [id number] Trupti Swann MD [facility] [address] [place] [address] 06/21/2023 16:13:31 06/22/2023 10:05:24 Type 2 diabetes mellitus without complication 584070475 E11.9 non compliance with Farxiga and rybelsus was discussed due to high co pays for these meds-- he reports he is not taking-- I advised change to invokana from farxiga with RX to [facility] for the 340 B discount-- he agrees. I will consider adding rybelsus with 340 B if his Hgb A1C remains > 7.5 in 3 monthsDM education with rn long term care damage to heart/ brain/ kidneys/ nerves/ circulatio n with loss of limb/ life/ need for dialysis reviewed Neuropathy 810446156 G62 .9 pt ed and start GABAPENTIN and further plans pending outcomeadv ised to check feet daily for any sores or lesion and to wear shoes / footwear in his home and elsewhere Uncontroll ed type 2 diabetes mellitus 246078893 E11.65 since FARXIGA was cost is prohibitiv e and Hgb A 1 C is high-- I will change to 340 B INVONKA 300mg daily and we will continue the METFORMIN 500 mg po BID and he reports he is not able to afford the RYBELSUS Coronary atherosclerosis 771046361 I25.10 discussed and he reports no CHF complaints at this time-- has AICD due to CHF and low EF [id number] Trupti Swann MD [facility] [address] [place] [address] 09/20/2023 12:01:48 09/20/2023 16:14:19 Adult health examination 736686040 Z00.00 Health Risk Assessment collected and reviewedad vised will and living willuse hand railstrip prevention get rid of throw rugs Uncontroll ed type 2 diabetes mellitus 972933176 E11.65 I will restart INVONKA 300mg daily and we will continue the METFORMIN 500 mg po BID and increase the dose of RYBELSUS to 7 mg Essential hypertension 14096599 I10 BP is ai little high today --I advised a medication change today of lisinopril -- no change iof the BB or diuretic History of malignant neoplasm of small bowel 113114387 Z85.068 follows with oncologist regularly- - he is to get a PET scan next week in [place] [id number] Trupti Agne, MD [facility] [address] [place] [address] 01/25/2024 14:23:56 01/26/2024 12:31:19 Type 2 diabetes mellitus without complication 587782992 E11.9 applauded with for improved BG control Dysfunctio n of bilateral eustachian tubes 3410684477 498117 H69.93 [id number] ANNIE Tejada [facility] [address] [place] [address] 06/14/2024 10:26:56 06/17/2024 10:07:20 Uncontrolled type 2 diabetes mellitus 349299615 E11.65 Rybelsus and Jardiance too expensiveD oes not want to start injectable medication and has no desire to check blood sugarsHx of CHF but on cardiology report no clinical findings of CHFIncreas e metformin to 1000mg BIDFollow up in 3 weeks for FBS check Overweight 023435725 E66 .3 Health Concerns Section Related Observation LastModified by Organization Detai ls LastModified Time None Recorded Concern Status LastModified by Organization Details LastModified Time None Recorded Advance Directives Directive Y: Payers Encounter Date Sequence Insurance Name Policy Number Policy Puentes Covered Member ID Puentes Member ID Guarantor Name 12/05/2022 1 [employer] (MEDICARE REPLACEMENT/ ADVANTAGE - HMO) [id number] [place] [id number] [place] 06/21/2023 1 [employer] (MEDICARE REPLACEMENT/ ADVANTAGE - HMO) [id number] [place] [id number] [place] 09/20/2023 1 [employer] - [employer] (MEDICARE REPLACEMENT/ ADVANTAGE - HMO) [id number] [place] [id number] [place] 01/25/2024 1 [employer] - [employer] (MEDICARE REPLACEMENT/ ADVANTAGE - HMO) [id number] [place] [id number] [place] 06/14/2024 1 [employer] - [employer] (MEDICARE REPLACEMENT/ ADVANTAGE - HMO) [id number] [place] [id number] [place] Notes Date Note Type Note Provider Name and Address Organization Details Recorded Time 12/05/2022 text/html Diabetes F/UReported bypatient.Labs:last A1C result: 9.9 Context:seeing eye doctor regularly; checking feet regularly; not missing doses of medications; RYBELUS/ FARXIGA and METFORMIN Associated Symptoms:no weight gain; no weight loss; no sweats; no headaches; no confusion; no increased thirst; no increased appetite; no increased urination; no blurred vision; no numbness of feet; no calluses on feet;dizziness Trupti Swann MD Attn: [address]ing,[address] [place], [place], [address] [place] [address], [facility] 12/05/2022 18:57:01 06/21/2023 text/html Diabetes F/UReported bypatient.Context:s eeing eye doctor regularly; checking feet regularly; not missing doses of medications; no side effects from medications Associated Symptoms:numbness of feet(some pain and tingling also) Trupti Swann MD Attn: [address] [place], [address], [facility] 06/21/2023 20:44:41 09/20/2023 text/html here for an otf al check up Trupti Swann MD Attn: [address]ing[address] [place], [address], [facility] 09/20/2023 13:05:53 09/20/2023 text/html MAW 2Reported bypatient.Diet and Nutrition:healthy diet Fracture Risk:no history of fractures; no sudden unexplained fractures Concentration and Memory:no decreased concentrating ability; no memory lapses or loss; does not forget words Speech/Motor difficulties:no speech difficulties; no difficulty expressing formulated concepts; no difficulty with fine manipulative tasks; no difficulty writing/copying; no slowed reaction time; does not knock things over when trying to pick them up Hearing:no loss of hearing Vision:no vision problems Activities of Daily Living:able to bathe with limited or no assistance; able to contol urination and bowels; able to dress with limited or no assistance; able to feed self with limited or no assistance; able to get out of chair or bed with limited or no assistance; able to groom with limited or no assistance; able to toilet with limited or no assistance Instrumental Activities of Daily Living:able to do house work with limited or no assistance; able to grocery shop with limited or no assistance; able to manage medications with limited or no assistance; able to manage money with limited or no assistance; able to prepare meals with limited or no assistance; able to use the phone with limited or no assistance Falls Risk Assessment:no frequent falls while walking; no fall in the past year; no fall since last visit; no dizziness/vertigo Home Safety:no unsafe mary ellen hazzards; no unsafe stairs; working smoke/CO detectors; practicing 'safer sex'; no fire arms; has hand bars in the bathroom/shower; good lighting in the home Trupti Swann MD Attn: [address]ing,[address] [place], [address], [facility] 09/20/2023 13:05:53 01/25/2024 text/html Diabetes F/UReported bypatient.Labs:last A1C result: 9; 09/22/23 Context:seeing eye doctor regularly; checking feet regularly Associated Symptoms:no weight gain; no weight loss; no sweats; no headaches; no confusion; no increased thirst; no increased appetite; no increased urination; no blurred vision; no numbness of feet; no calluses on feet;dizziness; Only when getting up to fast. reports he had radioactive treatment on 01/11/24 at [facility] -- quarantined for one week-- had port placed in arm and removed after treatment-- he is due in Feb to be rechecked and planning 4 total treatments similar to one last month over the ext 8 months Trupti Swann MD Attn: [address]ing,[address] [place], [address], [facility] 01/25/2024 15:03:00 06/14/2024 text/html Diabetes F/UReported bypatient.Review finger sticks:fastin Labs:last A1C result: 6.7 (as of 01/25/2024) Context:seeing eye doctor regularly; checking feet regularly; taking aspirin daily; not missing doses of medications; no side effects from medications;home blood sugar range high Associated Symptoms:no weight gain; no weight loss; no dizziness; no sweats; no headaches; no confusion; no increased thirst; no increased appetite; no increased urination; no blurred vision; no numbness of feet; no calluses on feet Pt here because he was told he has high blood sugarsHad to stop his jardiance and rybelsus in march as they are too expensiveHe does not check his blood sugars and states I feel no different when my sugars are high or normal ANNIE Tejada Attn: Accounting,[address] [facility], [place], [address], [facility] 06/14/2024 12:13:41
[2024-07-03] MEDS: METOCLOPRAMIDE HCL INJ 10 MG/2 ML VIAL IV PUSH (18:12)
--- NOTE | 2024-07-03 18:14 | PC.NURSE ---
pt attempted to sit up on the side of the bed with this RN assisting and another tech. pt sat up and started swaying, pt was laid back down, EDP aware.
[2024-07-03 21:27] LABS: Glucose Point of Care 238 mg/dl (65-105)
[2024-07-03] MEDS: SODIUM CHLORIDE 0.9% IV 1,000 ML 100 ML IV CONT (21:54)
[2024-07-03] MEDS: ATORVASTATIN 20 MG TABLET PO (21:54)
[2024-07-03 22:30] LABS: Folic Acid 9.8 ng/mL (2.76->20); Vitamin B12 < 159.0 pg/mL (239-931)
--- NOTE | 2024-07-03 23:00 | PM.IMHP ---
H&P: HPI History of Present Illness Date/Time: 07/03/24 23:00 Chief Complaint: Passed out Narrative: Loquacious 79-year-old male with a past medical history of essential hypertension, type 2 diabetes mellitus, diabetic peripheral neuropathy, obstructive sleep apnea, with sounds like colon cancer with metastases to the liver since 2019 and recent diagnosis of hematologic cancer currently undergoing treatment for both cancers at [facility] who presented to the ER from [facility] via EMS after syncopal event. The patient reports that he had a ?slow start to the day?. He stated that he felt more tired than usual and just stayed in bed. When he got up he needed to go refill to of his medications so he went to [facility] pharmacy. 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 However he denies any sensation of vertigo. He states that he just knew that he was going to pass out. He subsequently had loss of consciousness and hit the back of his head and had a small laceration. He does report some neck discomfort but CT of the head and neck in the ER was negative for acute fracture process. He reports that he has had poor appetite since his initial diagnosis with his cancer and 2016 and subsequent secondary cancer in the fall. He states that he tries to get himself to eat small amounts due to a small stomach. He denies any recent nausea or vomiting. His blood sugars on arrival to the ER were in the 200s. Initially when he came to the ER had a mild headache and nausea. He felt like he was having some difficulty thinking but was alert oriented x4. His headache is since resolved. He feels better now that he has received IV fluids. He denies any precipitating chest pain, palpitations or shortness of breath. He has not had any lower extremity swelling. He does have chronic lower extremity peripheral neuropathy left greater than right due to his diabetes. He received 1 L of IV fluid hydration and a dose of Zofran and Phenergan in the ER. Orthostatics that were obtained after patient arrived to the medical floor were positive with a 10 point drop in systolic pressure from supine to sitting and a almost 15 point drop in sitting to standing. He denies any fevers or chills. He does feeling like he is talking in a well with some fullness in his ears for the last several months. He has not noticed any vertigo with this sensation but is getting frustrated with the change in his hearing. Source of information comes from ER physician report and patient report. The patient is a fair historian. No external medical records available for review beyond external medication report from pharmacy. Review of Systems Review of Systems: 12 systems were reviewed with pertinent positives and negatives per HPI. Except as documented in the HPI, all other systems were reviewed and are negative. 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 He and his were for 60 years prior to her . He lives in his own home and is independent in all activities of daily living including driving. He briefly smoked for 1 year when he was young. He denies any history of alcohol or illicit substance use. He has 1 daughter and 1 son. 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 Code status: Full code (patient reports he would not want to be on long-term ventilator, tracheostomy, feeding tube or dependent on others) Surrogate decision maker: Carmen (daughter) Smoking status: Never smoker Alcohol intake: never Substance use: never Do You Feel Safe in your Home?: Yes Lack of Transportation: No Lack of Food: Never True Current Housing: I Have Housing Concerned About Future Housing: No Difficulty Paying Gas/Electric Bills: No Difficulty Paying for Meds: No Currently Unemployed: No Education: Trade/Vocational Certificate Difficulty w/ Childcare or Family Care: No Spiritual care concerns: No Meds Home Medications and Allergies Home Medications ?Medication ?Instructions ?Recorded ?Confirmed ?Type aspirin 81 mg tablet,delayed 81 mg PO DAILY 07/03/24 07/03/24 History release atorvastatin 20 mg tablet 20 mg PO QPM 07/03/24 07/03/24 History furosemide 40 mg tablet 40 mg PO Q12H 07/03/24 07/03/24 History lisinopril 20 mg tablet 20 mg PO DAILY 07/03/24 07/03/24 History magnesium aspart,citrate,oxide 400 mg PO DAILY 07/03/24 07/03/24 History metformin 500 mg tablet 1,000 mg PO BID 07/03/24 07/03/24 History spironolactone 25 mg tablet 25 mg PO DAILY 07/03/24 07/03/24 History Allergies Allergy/AdvReac Type Severity Reaction Status Date / Time No Known Allergies Allergy Verified 07/03/24 15:51 Vital Signs Vital Signs - 24 hr 07/03/24 15:38 07/03/24 15:43 07/03/24 15:45 Temperature 97.4 F L Pulse Rate 60 Respiratory Rate 18 Blood Pressure 114/67 115/73 114/67 Pulse Oximetry 98 98 96 Oxygen Delivery Room Air 07/03/24 16:05 07/03/24 16:35 07/03/24 17:01 Temperature Pulse Rate 58 L 63 65 Respiratory Rate 20 17 Blood Pressure 134/78 132/69 Pulse Oximetry 97 100 Oxygen Delivery 07/03/24 17:16 07/03/24 17:37 07/03/24 18:00 Temperature Pulse Rate 98 60 59 L Respiratory Rate 20 20 17 Blood Pressure 100/84 133/59 L 144/82 H Pulse Oximetry 97 99 100 Oxygen Delivery 07/03/24 19:39 07/03/24 21:47 07/03/24 21:49 Temperature 97.0 F L Pulse Rate 64 65 63 Respiratory Rate 16 Blood Pressure 139/70 134/74 124/68 Pulse Oximetry 98 100 100 Oxygen Delivery 07/03/24 21:51 Temperature Pulse Rate 79 Respiratory Rate Blood Pressure 105/56 L Pulse Oximetry 100 Oxygen Delivery Exam Narrative: Weight 85.5 kg BMI 30.4 Const: Other: No acute distress, well-developed well-nourished, appears stated age HENMT: Other: Poor dentition with multiple teeth that are broken off at the gumline with underlying dental caries noted no oral pharyngeal erythema, mucous membranes are tacky, crowded posterior oropharynx Eyes: Other: Pupils are equal and reactive, no scleral icterus, no significant conjunctival pallor Neck: Other: No JVD, no lymphadenopathy, erythema to the skin of the lower neck Resp: Other: Clear to auscultation bilaterally, no increased work of breathing Cardio: Other: Regular rate, regular rhythm, no murmurs GI: Other: Soft, nontender, nondistended, positive bowel sounds Skin: Other: No jaundice, no pallor Neuro: Other: Alert oriented x4, speech is clear, no facial asymmetry, pupils are equal and reactive, no localizing neurologic deficits noted during the course of conversation, normal deep tendon reflexes lower extremities, no pronator drift, decreased sensation to touch to bilateral feet Extrem: Other: No clubbing, cyanosis or edema, 5/5 web analyst strength bilateral Psych: Other: Loquacious, pleasant and cooperative, appropriate mood and affect, judgment and insight intact H&P: Results Labs Labs: Laboratory Tests 07/03/24 16:10 07/03/24 16:10 07/03/24 07/03/24 16:10 21:24 WBC 4.4 L RBC 3.18 L Hgb 11.0 L Hct 32.6 L MCV 102.5 H MCH 34.6 H MCHC 33.7 RDW 16.3 H Plt Count 99 L MPV 10.3 Immature Gran % (Auto) Not Reportable Neut % (Auto) Not Reportable Lymph % (Auto) Not Reportable [place] % (Auto) Not Reportable Eos % (Auto) Not Reportable Baso % (Auto) Not Reportable Lymph # (Auto) Not Reportable [place] # (Auto) Not Reportable Eos # (Auto) Not Reportable Baso # (Auto) Not Reportable Abs Immat Gran (auto) Not Reportable Absolute Neuts (auto) Not Reportable Absolute Nucleated RBC Not Reportable Total Counted 100 Neutrophils % (Manual) 77 H Band Neutrophils % 7 H Lymphocytes % (Manual) 8.0 L Monocytes % (Manual) 7 Eosinophils % (Manual) 1 Nucleated RBC % Not Reportable Abs Neuts (Manual) 3.69 Abs Lymphs (Manual) 0.35 L Abs Monocytes (Manual) 0.30 Absolute Eos (Manual) 0.04 Platelet Estimate Decreased % Immature Plt Fraction 4.6 Anisocytosis 2+ Schistocytes None seen Sodium 139 Potassium 3.4 Chloride 105 Carbon Dioxide 22 Anion Gap 12 BUN 8 L Creatinine 0.83 Estim Creat Clear Calc 58 Estimated GFR > 60 Glucose 288 H POC Capillary Glucose 238 H Calcium 8.7 Total Bilirubin 2.9 H AST 33 ALT 22 Alkaline Phosphatase 63 Total Protein 7.0 Albumin 4.0 Vitamin B12 < 159.0 L Folate 9.8 Impressions Chest X-Ray 07/03/24 16:19 IMPRESSION: No acute cardiopulmonary pathology. Head CT 07/03/24 16:31 IMPRESSION: No acute intracranial findings. Cervical Spine CT 07/03/24 16:43 IMPRESSION: No acute osseous abnormality cervical spine. Multilevel degenerative disc disease. EKG:Test Date: 2024-07-03 16:08:44 Measurements Intervals [place] Rate: 57 P: -11 WI: 191 QRS: -26 QRSD: 146 T: 116 QT: 460 QTc: 451 Interpretive Statements SINUS BRADYCARDIA WITH OCCASIONAL VENTRICULAR PREMATURE COMPLEXES LEFT BUNDLE BRANCH BLOCK BASELINE ARTIFACT- I, AVR ABNORMAL ECG No previous ECG available for comparison All imaging and EKGs personally reviewed and interpreted. And unless stated otherwise agree with radiologic and cardiology interpretation. Assessment and Plan Assessment and plan (1) Orthostatic hypotension: Code(s): I95.1 - Orthostatic hypotension Status: Acute (2) Concussion with loss of consciousness: Qualifiers: Encounter type: initial encounter Qualified Code(s): S06.0X9A - Concussion with loss of consciousness of unspecified duration, initial encounter Code(s): S06.0X9A - Concussion with loss of consciousness of unspecified duration, initial encounter Status: Acute (3) Pancytopenia: Code(s): D61.818 - Other pancytopenia Status: Acute (4) Type 2 diabetes mellitus with hyperglycemia, without long-term current use of insulin: Code(s): E11.65 - Type 2 diabetes mellitus with hyperglycemia Status: Acute (5) B12 deficiency: Code(s): E53.8 - Deficiency of other specified B group vitamins Status: Acute (6) Megaloblastic anemia: Code(s): D53.1 - Other megaloblastic anemias, not elsewhere classified Status: Acute (7) Chronic eustachian tube dysfunction: Qualifiers: Laterality: bilateral Qualified Code(s): H69.93 - Unspecified Eustachian tube disorder, bilateral Code(s): H69.90 - Unspecified Eustachian tube disorder, unspecified ear Status: Acute (8) Neck pain: Code(s): M54.2 - Cervicalgia Status: Acute Plan Patient had syncopal event likely due to a combination of hypovolemia and orthostatic hypotension. Will hold the patient's home Lasix and spironolactone. Will provide gentle IV fluid hydration overnight and re-evaluate orthostatic vital signs in a.m.. Patient may have some component of underlying orthostatic hypotension due to autonomic dysfunction given his history of peripheral neuropathy. An MRI was ordered in the ER due to reported dizziness and to rule out underlying intercranial process given the patient's history of metastatic cancer. Am less concerned about central vertigo at this time but I am not opposed to an MRI to rule out other intercranial process. Patient did have evidence of retracted tympanic membranes bilaterally. He likely has some component of eustachian tube dysfunction he had improvement in his hearing from his left ear after I performed osteopathic technique with resolution of the pressure sensation in his left ear. He did not have as much of an improvement with the right ear. Patient did receive her recent chemotherapy and has pancytopenia. No evidence of acute infection. Will monitor and repeat CBC with diff in a.m.. The patient did have some megaloblastic anemia B12 level was ordered and was found to be markedly low. Will provide IM and oral B12 supplements. A portion of the patient's peripheral neuropathy may also be due to B12 deficiency. Patient does have type 2 diabetes mellitus and currently is uncontrolled with hyperglycemia. Will add sliding scale insulin in addition to the patient's home metformin. Will change diet to consistent carbohydrate. Given hyperglycemia will repeat electrolyte panel with a.m. labs. Patient reports exacerbation of his intermittent chronic neck pain since his fall. Will order Tylenol and a K-pad. Patient has been admitted as observation status. Quality VTE Prophylaxis VTE prophylaxis: mechanical ordered (SCDs) Hospitalist MIPS Advance Care Plan I have confirmed that the patient's Advanced Care Plan is present, code status is documented, or surrogate decision maker is listed in patient medical record.: Yes Medication Reconciliation I have utilized all available resources to obtain, update and review the patients current medications (includes all prescriptions, OTC, herbals, cannabis, and nutritional supplements).: Yes
[2024-07-03] MEDS: INSULIN ASPART (*BKC) 100 UNITS/ML SUB-Q (23:01)
--- NOTE | 2024-07-03 23:17 | ADMGEN ---
This patient, Parish Sim, was admitted to Medical Room 341-01. Patient/family oriented to hospital policies and general routines including ID bracelet, bed and alarms, visiting hours, pain management, procedures, bathroom and other care routines, personal items, smoking policy, room service/diet, and visiting hours. Information on how to activate the Rapid Response Team has been discussed. Patient/Family are encouraged to report perceived risks to care and to ask questions if they do not understand what they are told or what they should do.
[2024-07-04] VITALS (13 sets, daily range): BP systolic 118–147; BP diastolic 66–95; PULSE 60–104; RESP 15–16; TEMP 36.3–36.6; O2SAT 98–100
[2024-07-04] MEDS: ACETAMINOPHEN 325 MG TABLET 650 MG PO ×3 (03:47→17:00)
[2024-07-04 05:39] LABS: Basophils Percent Auto 0.3 % (0.2-1.2); Eosinophils Percent Auto 1.2 % (0-4.4); Hematocrit 28.1 % (42.0-52.0); Hemoglobin 9.5 g/dL (14.0-18.0); Immature Granulocyte Absolute 0.02 K/mm3 (0.00-0.031); Immature Granulocyte Percent A 0.6 % (0-0.5); Immature Platelet Fraction Pct 4.3 % (0.9-11.2); Lymphocytes Absolute Auto 0.16 K/mm3 (0.9-3.2); Lymphocytes Percent Auto 4.9 % (18.3-44.2); Mean Corpuscular HGB Conc 33.8 g/dl (32-36); Mean Corpuscular Volume 106.4 fl (80-100); Mean Platelet Volume 10.2 fl (7.4-10.4); Monocytes Absolute Auto 0.3 K/mm3 (0.1-0.6); Neutrophils Absolute Auto 2.7 K/mm3 (1.3-6.7); Red Blood Count 2.64 M/mm3 (4.6-6.20); Red Cell Distribution Width 16.5 % (11.5-14.5); White Blood Count 3.3 K/mm3 (4.5-10.0)
[2024-07-04 05:48] LABS: Anion Gap 8 mmol/L (4-12); Blood Urea Nitrogen 10 mg/dL (9-20); Carbon Dioxide 26 mmol/L (22-30); Chloride 103 mmol/L (98-107); Estimated CRCL calculation 77 ml/min; Estimated Glomerular Filt Rate > 60; Glucose 218 mg/dL (65-110); Magnesium 1.6 mg/dL (1.6-2.3); Sodium 137 mmol/L (137-145)
[2024-07-04 05:57] LABS: Platelet Count Result 86 k/mm3 (150-375)
[2024-07-04 05:58] LABS: Anisocytosis 1+; Hypochromasia 1+; Ovalocytes 1+; Platelet Estimate Decreased (Adequate); Schistocytes None Seen
[2024-07-04 06:16] LABS: Thyroid Stimulating Hormone Reflex 0.237 uIU/mL (0.465-4.68)
[2024-07-04 07:30] LABS: Free T4 Free Thyroxine Reflex 0.76 ng/dL (0.78-2.19)
[2024-07-04] MEDS: SODIUM CHLORIDE 0.9% IV 1,000 ML 100 ML IV CONT ×2 (08:49→23:52)
[2024-07-04] MEDS: MAGNESIUM OXIDE 400 MG TABLET PO (08:51)
[2024-07-04] MEDS: CYANOCOBALAMIN 1,000 MCG TABLET 1000 MCG PO (08:51)
[2024-07-04] MEDS: lisinopriL 20 MG TABLET PO (08:51)
[2024-07-04] MEDS: metFORMIN HCL 500 MG TABLET 1000 MG PO ×2 (08:51→17:00)
[2024-07-04] MEDS: ASPIRIN 81 MG ENTERIC TABLET PO (08:51)
[2024-07-04 09:15] LABS: Glucose Point of Care 259 mg/dl (65-105)
[2024-07-04] MEDS: INSULIN ASPART (*BKC) 100 UNITS/ML SUB-Q ×4 (09:32→21:08)
--- NOTE | 2024-07-04 09:47 | P.PNIM_ITS ---
Progress Note: A&P Assessment and Plan (1) Syncope: Code(s): R55 - Syncope and collapse Status: Acute Assessment and Plan: combination of hypovolemia and orthostatic hypotension. Hold home Lasix and spironolactone. Gentle IV hydration Orthostatics were positive yesterday, repeat negative today MRI canceled due to patient having pacemaker, this facility does not have Interventional Cardiology Meclizine ordered PT and OT evaluation (2) Orthostatic hypotension: Code(s): I95.1 - Orthostatic hypotension Status: Acute Assessment and Plan: Resolved (3) Concussion with loss of consciousness: Qualifiers: Encounter type: initial encounter Qualified Code(s): S06.0X9A - Concussion with loss of consciousness of unspecified duration, initial encounter Code(s): S06.0X9A - Concussion with loss of consciousness of unspecified duration, initial encounter Status: Acute Assessment and Plan: With headache P.r.n. Tylenol Neurochecks (4) Pancytopenia: Code(s): D61.818 - Other pancytopenia Status: Acute Assessment and Plan: Secondary cancer Daily CBC No signs of acute bleeding (5) Type 2 diabetes mellitus with hyperglycemia, without long-term current use of insulin: Code(s): E11.65 - Type 2 diabetes mellitus with hyperglycemia Status: Acute Assessment and Plan: uncontrolled with hyperglycemia. Diabetic diet Accu-Cheks a.c. HS SSI (6) B12 deficiency: Code(s): E53.8 - Deficiency of other specified B group vitamins Status: Acute Assessment and Plan: Vitamin B12 added (7) Chronic eustachian tube dysfunction: Qualifiers: Laterality: bilateral Qualified Code(s): H69.93 - Unspecified Eustachian tube disorder, bilateral Code(s): H69.90 - Unspecified Eustachian tube disorder, unspecified ear Status: Acute Assessment and Plan: Unable to do MRI Zyrtec (8) Neck pain: Code(s): M54.2 - Cervicalgia Status: Acute Assessment and Plan: Will order Tylenol and a K-pad. Time Spent With Patient Time with patient: Greater than 35 minutes Subjective Date/time seen: 07/04/24 09:47 Interval history: 79-year-old male with a past medical history of essential hypertension, type 2 diabetes mellitus, diabetic peripheral neuropathy, obstructive sleep apnea, with sounds like colon cancer with metastases to the liver since 2019 and recent diagnosis of hematologic cancer currently undergoing treatment for both cancers at [facility] who presented EMS after syncopal event. Patient complains of headache and dizziness, meclizine and PT OT Review of Systems Review of Systems: 12 systems were reviewed and are negativ e except for as per HPI. Exam Narrative: General: well appearing, appears stated age. HEENT: normocephalic, atraumatic. Mucous membranes moist. EOMI, PERRLA, bilateral sclera anicteric, no conjunctival injection. Neck supple without JVD, lymphadenopathy, or bruit. Respiratory: clear to ascultation bilaterally. No rales/rhonic/wheezes. Cardiovascular: Regular rate and rhythm, normal S1-S2 upon ascultation. No murmurs, rubs, or clicks. PMI is nondisplaced, capillary refill less than 3 second. Abdomen: Soft, round, no pulsatile masses, nondistended and nontender. No rebound, no guarding. No CVA tenderness, no hepatosplenomegaly. Bowel sounds present to all four quadrants. No high pitch or tinkling sounds, resonant to percussion. Extremities: No cyanosis, clubbing, or edema present. Pulses are palpable 2/2. Active ROM to all four extremities. Neuro: Alert and orientated x 4. PERRLA. Cranial nerves 2-12 intact without focal deficit. Skin: Warm, dry, and intact, without rash, erythema, or lesion. Psych: pleasant, cooperative, normal speech, normal affect, no hallucinations, no dysarthia Objective Data Vital Signs Vital Signs: Vital Signs - 24 hr 07/03/24 15:38 07/03/24 15:43 07/03/24 15:45 Temperature 97.4 F L Pulse Rate 60 Respiratory Rate 18 Blood Pressure 114/67 115/73 114/67 Pulse Oximetry 98 98 96 Oxygen Delivery Room Air 07/03/24 16:05 07/03/24 16:35 07/03/24 17:01 Temperature Pulse Rate 58 L 63 65 Respiratory Rate 20 17 Blood Pressure 134/78 132/69 Pulse Oximetry 97 100 Oxygen Delivery 07/03/24 17:16 07/03/24 17:37 07/03/24 18:00 Temperature Pulse Rate 98 60 59 L Respiratory Rate 20 20 17 Blood Pressure 100/84 133/59 L 144/82 H Pulse Oximetry 97 99 100 Oxygen Delivery 07/03/24 19:39 07/03/24 21:47 07/03/24 21:49 Temperature 97.0 F L Pulse Rate 64 65 63 Respiratory Rate 16 Blood Pressure 139/70 134/74 124/68 Pulse Oximetry 98 100 100 Oxygen Delivery 07/03/24 21:51 07/03/24 23:21 07/04/24 00:00 Temperature Pulse Rate 79 67 Respiratory Rate Blood Pressure 105/56 L Pulse Oximetry 100 Oxygen Delivery Room Air 07/04/24 04:23 07/04/24 05:27 07/04/24 08:29 Temperature 97.4 F L Pulse Rate 64 60 Respiratory Rate 16 Blood Pressure 147/71 H Pulse Oximetry 100 100 Oxygen Delivery Room Air Intake/Output Intake/Output: Intake & Output 07/01/24 07/02/24 07/03/24 07/04/24 23:59 23:59 23:59 23:59 Intake Total 1000 1480 Balance 1000 1480 Meds/Results Medications: Active Medications Generic Name Dose Route Start Last Admin Trade Name Freq PRN Reason Stop Dose Admin Acetaminophen 650 mg 07/04/24 03:38 07/04/24 08:58 Acetaminophen 325 Mg Tablet PO 650 mg Q4H PRN Administration pain 1-3 Aspirin 81 mg 07/04/24 09:00 07/04/24 08:51 Aspirin 81 Mg Enteric Tablet PO 81 mg DAILY ILYA Administration Atorvastatin Calcium 20 mg 07/03/24 21:05 07/03/24 21:54 Atorvastatin 20 Mg Tablet PO 20 mg QPM ILYA Administration Cyanocobalamin 1,000 mcg 07/10/24 09:00 Cyanocobalamin Inj 1,000 Mcg/Ml Vial IM WEEKLY ILYA Cyanocobalamin 1,000 mcg 07/04/24 09:00 07/04/24 08:51 Cyanocobalamin 1,000 Mcg Tablet PO 1,000 mcg QAM ILYA Administration Dextrose 12.5 gm 07/03/24 21:01 Dextrose 50% 25 Gm/50 Ml Syringe IV PUSH PRN PRN Hypoglycemia Protocol Glucagon 1 mg 07/03/24 21:01 Glucagon For Inj 1 Mg Vial IM PRN PRN Hypoglycemia Protocol Glucose 15 gm 07/03/24 21:01 Glucose Oral Gel 15 Gm Of Glucse In 37.5 Gm Tube PO PRN PRN Hypoglycemia Protocol Sodium Chloride 1,000 mls @ 100 mls/hr 07/03/24 21:00 07/04/24 08:49 Normal Saline Iv IV CONT 100 mls/hr .Q10H ILYA Administration Dextrose 1,000 mls @ 100 mls/hr 07/03/24 21:01 Dextrose 5% 1,000 Ml IVPB PRN PRN Hypoglycemia Protocol Insulin Aspart 1 - 3 units 07/04/24 21:00 Insulin Aspart (*Bkc) 100 Units/Ml SUB-Q HS ILYA Protocol Insulin Aspart 3 - 6 units 07/04/24 08:00 07/04/24 09:32 Insulin Aspart (*Bkc) 100 Units/Ml SUB-Q 4 units TIDWM ILYA Administration Protocol Lisinopril 20 mg 07/04/24 09:00 07/04/24 08:51 Lisinopril 20 Mg Tablet PO 20 mg DAILY ILYA Administration Magnesium Oxide 400 mg 07/04/24 09:00 07/04/24 08:51 Magnesium Oxide 400 Mg Tablet PO 400 mg DAILY ILYA Administration Metformin HCl 1,000 mg 07/04/24 09:00 07/04/24 08:51 Metformin Hcl 500 Mg Tablet PO 1,000 mg BID ILYA Administration Radiology Results: ITS Impressions Chest X-Ray 07/03/24 16:19 IMPRESSION: No acute cardiopulmonary pathology. Head CT 07/03/24 16:31 IMPRESSION: No acute intracranial findings. Cervical Spine CT 07/03/24 16:43 IMPRESSION: No acute osseous abnormality cervical spine. Multilevel degenerative disc disease. Labs Labs: Laboratory Results - last 24 hr 07/03/24 07/03/24 07/04/24 16:10 21:24 05:12 WBC 4.4 L 3.3 L RBC 3.18 L 2.64 L Hgb 11.0 L 9.5 L Hct 32.6 L 28.1 L MCV 102.5 H 106.4 H MCH 34.6 H 36.0 H MCHC 33.7 33.8 RDW 16.3 H 16.5 H Plt Count 99 L 86 L MPV 10.3 10.2 Immature Gran % (Auto) Not Reportable 0.6 H Neut % (Auto) Not Reportable 83.0 H Lymph % (Auto) Not Reportable 4.9 L Long % (Auto) Not Reportable 10.0 H Eos % (Auto) Not Reportable 1.2 Baso % (Auto) Not Reportable 0.3 Lymph # (Auto) Not Reportable 0.16 L Long # (Auto) Not Reportable 0.3 Eos # (Auto) Not Reportable 0.0 Baso # (Auto) Not Reportable 0.0 Abs Immat Gran (auto) Not Reportable 0.02 Absolute Neuts (auto) Not Reportable 2.7 Absolute Nucleated RBC Not Reportable 0.000 Total Counted 100 Neutrophils % (Manual) 77 H Band Neutrophils % 7 H Not Reportable Lymphocytes % (Manual) 8.0 L Monocytes % (Manual) 7 Eosinophils % (Manual) 1 Nucleated RBC % Not Reportable 0.0 Abs Neuts (Manual) 3.69 Abs Lymphs (Manual) 0.35 L Abs Monocytes (Manual) 0.30 Absolute Eos (Manual) 0.04 Platelet Estimate Decreased Decreased % Immature Plt Fraction 4.6 4.3 Hypochromasia 1+ Anisocytosis 2+ 1+ Ovalocytes 1+ Schistocytes None seen None seen Sodium 139 137 Potassium 3.4 3.0 L Chloride 105 103 Carbon Dioxide 22 26 Anion Gap 12 8 BUN 8 L 10 Creatinine 0.83 0.70 Estim Creat Clear Calc 58 77 Estimated GFR > 60 > 60 Glucose 288 H 218 H POC Capillary Glucose 238 H Calcium 8.7 8.0 L Magnesium 1.6 Total Bilirubin 2.9 H AST 33 ALT 22 Alkaline Phosphatase 63 Total Protein 7.0 Albumin 4.0 Vitamin B12 < 159.0 L Folate 9.8 TSH (Reflex) 0.237 L Free T4 0.76 L 07/04/24 09:13 WBC RBC Hgb Hct MCV MCH MCHC RDW Plt Count MPV Immature Gran % (Auto) Neut % (Auto) Lymph % (Auto) Long % (Auto) Eos % (Auto) Baso % (Auto) Lymph # (Auto) Long # (Auto) Eos # (Auto) Baso # (Auto) Abs Immat Gran (auto) Absolute Neuts (auto) Absolute Nucleated RBC Total Counted Neutrophils % (Manual) Band Neutrophils % Lymphocytes % (Manual) Monocytes % (Manual) Eosinophils % (Manual) Nucleated RBC % Abs Neuts (Manual) Abs Lymphs (Manual) Abs Monocytes (Manual) Absolute Eos (Manual) Platelet Estimate % Immature Plt Fraction Hypochromasia Anisocytosis Ovalocytes Schistocytes Sodium Potassium Chloride Carbon Dioxide Anion Gap BUN Creatinine Estim Creat Clear Calc Estimated GFR Glucose POC Capillary Glucose 259 H Calcium Magnesium Total Bilirubin AST ALT Alkaline Phosphatase Total Protein Albumin Vitamin B12 Folate TSH (Reflex) Free T4 Quality VTE Prophylaxis VTE prophylaxis: mechanical ordered (SCDs) Hospitalist MIPS Advance Care Plan I have confirmed that the patient's Advanced Care Plan is present, code status is documented, or surrogate decision maker is listed in patient medical record.: Yes Medication Reconciliation I have utilized all available resources to obtain, update and review the patients current medications (includes all prescriptions, OTC, herbals, cannabis, and nutritional supplements).: Yes
[2024-07-04] MEDS: POTASSIUM CHLORIDE 20 MEQ ER TABLET PO (11:03)
[2024-07-04 11:56] LABS: Glucose Point of Care 217 mg/dl (65-105)
[2024-07-04] MEDS: MECLIZINE HCL 6.25 MG TABLET PO ×2 (12:42→17:01)
--- NOTE | 2024-07-04 14:07 | PCRCNOTE ---
I talked with the patient about a CPAP. Pt states that he wears a CPAP at home but he did not bring his in and does not wish to use one of ours. Pt says he gets woke up too often throughout the night when he wears our CPAP. He states that he will be fine without a CPAP for a few nights. I did tell him if he changes his mind that he can always have his nurse give us a call and we will set him up with one of ours.
[2024-07-04 16:01] LABS: Cortisol Baseline 7.97 ug/dL
[2024-07-04] MEDS: LORATADINE 10 MG TABLET PO (17:01)
[2024-07-04] MEDS: ATORVASTATIN 20 MG TABLET PO (17:01)
[2024-07-04 17:20] LABS: Glucose Point of Care 226 mg/dl (65-105)
[2024-07-04 19:28] LABS: Glucose Point of Care 234 mg/dl (65-105)
[2024-07-05] VITALS (13 sets, daily range): BP systolic 133–145; BP diastolic 70–86; PULSE 55–79; RESP 18; TEMP 36.1–36.4; O2SAT 97–100
[2024-07-05 05:37] LABS: Hemoglobin 8.7 g/dL (14.0-18.0); Immature Platelet Fraction Pct 4.4 % (0.9-11.2); Mean Corpuscular HGB Conc 32.2 g/dl (32-36); Mean Corpuscular Hemoglobin 35.1 pg (26-34); Mean Corpuscular Volume 108.9 fl (80-100); Mean Platelet Volume 10.4 fl (7.4-10.4); Red Blood Count 2.48 M/mm3 (4.6-6.20); Red Cell Distribution Width 16.8 % (11.5-14.5); White Blood Count 2.6 K/mm3 (4.5-10.0)
[2024-07-05 05:38] LABS: Platelet Count Result 79 k/mm3 (150-375)
[2024-07-05] MEDS: SODIUM CHLORIDE 0.9% IV 1,000 ML 100 ML IV CONT (05:41)
[2024-07-05] MEDS: ACETAMINOPHEN 325 MG TABLET 650 MG PO (05:43)
[2024-07-05 05:52] LABS: Anion Gap 7 mmol/L (4-12); Blood Urea Nitrogen 11 mg/dL (9-20); Calcium 7.9 mg/dL (8.4-10.2); Carbon Dioxide 24 mmol/L (22-30); Chloride 107 mmol/L (98-107); Estimated CRCL calculation 79 ml/min; Estimated Glomerular Filt Rate > 60; Glucose 178 mg/dL (65-110); Potassium 3.5 mmol/L (3.4-5.0); Sodium 138 mmol/L (137-145)
--- NOTE | 2024-07-05 07:35 | P.PNIM_ITS ---
Progress Note: A&P Assessment and Plan (1) Syncope: Code(s): R55 - Syncope and collapse Status: Acute Assessment and Plan: Syncopal episode resulting in head strike with laceration Likely due to a combination of hypovolemia and orthostatic hypotension. May have some component of underlying orthostatic hypotension due to autonomic dysfunction given his history of peripheral neuropathy. Resume lasix 40 mg BID as blood pressures have been stable, continue to monitor and resume spironolactone as appropriate Orthostatics were positive yesterday, repeat negative Chest XR showed no acute cardiopulmonary pathology CT head showed no acute intracranial findings MRI was ordered in the ER due to reported dizziness and to rule out underlying intracranial process given the patient's history of metastatic cancer, however unable to obtain given pacemaker Echo ordered to evaluate heart function Meclizine ordered PT and OT evaluation (2) Orthostatic hypotension: Code(s): I95.1 - Orthostatic hypotension Status: Acute Assessment and Plan: Positive on admission Resolved with fluids (3) Concussion with loss of consciousness: Qualifiers: Encounter type: initial encounter Qualified Code(s): S06.0X9A - Concussion with loss of consciousness of unspecified duration, initial encounter Code(s): S06.0X9A - Concussion with loss of consciousness of unspecified duration, initial encounter Status: Acute Assessment and Plan: Head CT showed no acute intracranial findings P.r.n. Tylenol Neurochecks (4) Pancytopenia: Code(s): D61.818 - Other pancytopenia Status: Acute Assessment and Plan: Secondary to colon cancer with metastases to the liver since 2019 and recent diagnosis of hematologic cancer currently undergoing treatment for both cancers at [facility] Daily CBC No signs of acute bleeding or evidence of infection (5) Type 2 diabetes mellitus with hyperglycemia, without long-term current use of insulin: Code(s): E11.65 - Type 2 diabetes mellitus with hyperglycemia Status: Acute Assessment and Plan: - hypoglycemia protocol - POC blood glucose ACHS - home medication - metformin 1000 mg BID - correct regimen ordered - mod dose TIDWM and HS - A1C 8.4 (6) B12 deficiency: Code(s): E53.8 - Deficiency of other specified B group vitamins Status: Acute Assessment and Plan: A portion of the patient's peripheral neuropathy may also be due to B12 deficiency. B12 < 159 Started on B12 supplementation, 1000 mcg PO daily and 1000 mcg IM weekly (7) Chronic eustachian tube dysfunction: Qualifiers: Laterality: bilateral Qualified Code(s): H69.93 - Unspecified Eustachian tube disorder, bilateral Code(s): H69.90 - Unspecified Eustachian tube disorder, unspecified ear Status: Acute Assessment and Plan: Patient reportedly had evidence of retracted tympanic membranes bilaterally. He likely has some component of eustachian tube dysfunction. Per chart review prior hospitalist performed osteopathic technique with resolution of the pressure sensation in his left ear. He did not have as much of an improvement with the right ear. Continue Zyrtec (8) Neck pain: Code(s): M54.2 - Cervicalgia Status: Acute Assessment and Plan: C spine CT showed no acute osseous abnormality of the cervical spine and multilevel degenerative disc disease. Likely related to patients acute injury resulting in whiplash, no tingling/numbness or shooting pains noted to the extremities Continue to work with PT/OT Tylenol and a K-pad. Time Spent With Patient Time with patient: 25 - 35 minutes Subjective Date/time seen: 07/05/24 07:35 Interval history: 79-year-old male with a past medical history of essential hypertension, type 2 diabetes mellitus, diabetic peripheral neuropathy, obstructive sleep apnea, and what sounds like colon cancer with metastases to the liver since 2019 and recent diagnosis of hematologic cancer currently undergoing treatment for both cancers at [facility] who presented to the hospital from [facility] via EMS after syncopal event. Patient is pleasant lying comfortably in bed. He continues to endorse intermittent neck pain but denies any tingling/numbness/shooting pains in the ex tremities. He notes that he just cannot seem to get comfortable in has intermittent headaches. He continues to endorse intermittent dizziness and has been prescribed meclizine. Orthostatics remained negative. He has no other complaints denying chest pain, shortness a breath, palpitations, nausea/vomiting, abdominal pain. Review of Systems Review of Systems: All systems reviewed & are unremarkable except as noted in HPI and below Exam Narrative: AF HR 58 RR 18 Spo2 100 BP 138/73 General: male in no acute respiratory distress who is nontoxic appearing, lying semi recumbent in bed. HEENT: Normocephalic. Atraumatic. Pupils equal round reactive to light. Extraocular movement intact. Sclera clear and anicteric. No facial asymmetry. Chest: Lungs are clear to auscultation bilaterally. No wheezes or crackles. CV: Heart was regular rate and rhythm. S1/S2. No murmurs, gallops, or rubs. Abd: Abdomen was soft. Nontender. Nondistended. Positive bowel sounds. No organomegaly or masses. Ext: No clubbing, cyanosis, or edema. DP pulses bilaterally. Neuro: Patient is alert and oriented x4. Speech is clear. Objective Data Vital Signs Vital Signs: Vital Signs - 24 hr 07/04/24 08:05 07/04/24 08:29 07/04/24 11:45 Temperature Pulse Rate 104 H 64 Respiratory Rate Blood Pressure 139/79 Pulse Oximetry 100 Oxygen Delivery Room Air 07/04/24 11:45 07/04/24 11:45 07/04/24 12:05 Temperature Pulse Rate 67 77 65 Respiratory Rate Blood Pressure 142/83 H 131/66 Pulse Oximetry Oxygen Delivery 07/04/24 15:42 07/04/24 16:04 07/04/24 20:00 Temperature 97.6 F Pulse Rate 63 65 62 Respiratory Rate 15 Blood Pressure 141/73 H Pulse Oximetry 99 Oxygen Delivery 07/04/24 20:45 07/04/24 20:48 07/04/24 20:52 Temperature 97.9 F Pulse Rate 68 72 79 Respiratory Rate 16 Blood Pressure 118/84 127/95 H 124/72 Pulse Oximetry 100 98 Oxygen Delivery 07/05/24 00:00 07/05/24 04:00 07/05/24 06:00 Temperature 97.2 F L Pulse Rate 64 62 60 Respiratory Rate 18 Blood Pressure 140/70 Pulse Oximetry 97 Oxygen Delivery Intake/Output Intake/Output: Intake & Output 07/02/24 07/03/24 07/04/24 07/05/24 23:59 23:59 23:59 23:59 Intake Total 1000 3010 731.7 Output Total 700 Balance 1000 3010 31.7 Meds/Results Medications: Active Medications Generic Name Dose Route Start Last Admin Trade Name Freq PRN Reason Stop Dose Admin Acetaminophen 650 mg 07/04/24 03:38 07/05/24 05:43 Acetaminophen 325 Mg Tablet PO 650 mg Q4H PRN Administration pain 1-3 Aspirin 81 mg 07/04/24 09:00 07/04/24 08:51 Aspirin 81 Mg Enteric Tablet PO 81 mg DAILY ILYA Administration Atorvastatin Calcium 20 mg 07/03/24 21:05 07/04/24 17:01 Atorvastatin 20 Mg Tablet PO 20 mg QPM ILYA Administration Cyanocobalamin 1,000 mcg 07/10/24 09:00 Cyanocobalamin Inj 1,000 Mcg/Ml Vial IM WEEKLY ILYA Cyanocobalamin 1,000 mcg 07/04/24 09:00 07/04/24 08:51 Cyanocobalamin 1,000 Mcg Tablet PO 1,000 mcg QAM ILYA Administration Dextrose 12.5 gm 07/03/24 21:01 Dextrose 50% 25 Gm/50 Ml Syringe IV PUSH PRN PRN Hypoglycemia Protocol Glucagon 1 mg 07/03/24 21:01 Glucagon For Inj 1 Mg Vial IM PRN PRN Hypoglycemia Protocol Glucose 15 gm 07/03/24 21:01 Glucose Oral Gel 15 Gm Of Glucse In 37.5 Gm Tube PO PRN PRN Hypoglycemia Protocol Sodium Chloride 1,000 mls @ 100 mls/hr 07/03/24 21:00 07/05/24 05:41 Normal Saline Iv IV CONT 100 mls/hr .Q10H ILYA Administration Dextrose 1,000 mls @ 100 mls/hr 07/03/24 21:01 Dextrose 5% 1,000 Ml IVPB PRN PRN Hypoglycemia Protocol Insulin Aspart 1 - 3 units 07/04/24 21:00 07/04/24 21:08 Insulin Aspart (*Bkc) 100 Units/Ml SUB-Q 1 units HS ILYA Administration Protocol Insulin Aspart 3 - 6 units 07/04/24 08:00 07/04/24 18:07 Insulin Aspart (*Bkc) 100 Units/Ml SUB-Q 3 units TIDWM ILYA Administration Protocol Lisinopril 20 mg 07/04/24 09:00 07/04/24 08:51 Lisinopril 20 Mg Tablet PO 20 mg DAILY ILYA Administration Loratadine 10 mg 07/04/24 14:05 07/04/24 17:01 Loratadine 10 Mg Tablet PO 10 mg QAM ILYA Administration Magnesium Oxide 400 mg 07/04/24 09:00 07/04/24 08:51 Magnesium Oxide 400 Mg Tablet PO 400 mg DAILY ILYA Administration Meclizine HCl 6.25 mg 07/04/24 13:00 07/04/24 17:01 Meclizine Hcl 6.25 Mg Tablet PO 6.25 mg TID ILYA Administration Metformin HCl 1,000 mg 07/04/24 09:00 07/04/24 17:00 Metformin Hcl 500 Mg Tablet PO 1,000 mg BID ILYA Administration Radiology Results: ITS Impressions Chest X-Ray 07/03/24 16:19 IMPRESSION: No acute cardiopulmonary pathology. Head CT 07/03/24 16:31 IMPRESSION: No acute intracranial findings. Cervical Spine CT 07/03/24 16:43 IMPRESSION: No acute osseous abnormality cervical spine. Multilevel degenerative disc disease. Labs Labs: Laboratory Results - last 24 hr 07/04/24 07/04/24 07/04/24 09:13 11:53 15:13 WBC RBC Hgb Hct MCV MCH MCHC RDW Plt Count MPV % Immature Plt Fraction Sodium Potassium Chloride Carbon Dioxide Anion Gap BUN Creatinine Estim Creat Clear Calc Estimated GFR Glucose POC Capillary Glucose 259 H 217 H Calcium Cortisol Baseline 7.97 07/04/24 07/04/24 07/05/24 17:14 19:24 03:47 WBC 2.6 L RBC 2.48 L Hgb 8.7 L Hct 27.0 L MCV 108.9 H MCH 35.1 H MCHC 32.2 RDW 16.8 H Plt Count 79 L MPV 10.4 % Immature Plt Fraction 4.4 Sodium 138 Potassium 3.5 Chloride 107 Carbon Dioxide 24 Anion Gap 7 BUN 11 Creatinine 0.68 L Estim Creat Clear Calc 79 Estimated GFR > 60 Glucose 178 H POC Capillary Glucose 226 H 234 H Calcium 7.9 L Cortisol Baseline Quality VTE Prophylaxis VTE prophylaxis: mechanical ordered (SCDs)
[2024-07-05 07:41] LABS: Glucose Point of Care 216 mg/dl (65-105)
[2024-07-05 08:24] LABS: Hemoglobin A1C 8.4 % (<5.7)
[2024-07-05] MEDS: ASPIRIN 81 MG ENTERIC TABLET PO (08:56)
[2024-07-05] MEDS: MECLIZINE HCL 6.25 MG TABLET PO ×3 (08:56→17:06)
[2024-07-05] MEDS: lisinopriL 20 MG TABLET PO (08:56)
[2024-07-05] MEDS: CYANOCOBALAMIN 1,000 MCG TABLET 1000 MCG PO (08:56)
[2024-07-05] MEDS: LORATADINE 10 MG TABLET PO (08:57)
[2024-07-05] MEDS: MAGNESIUM OXIDE 400 MG TABLET PO (08:57)
[2024-07-05] MEDS: INSULIN ASPART (*BKC) 100 UNITS/ML SUB-Q ×4 (09:05→20:39)
[2024-07-05 11:42] LABS: Glucose Point of Care 224 mg/dl (65-105)
[2024-07-05] MEDS: ATORVASTATIN 20 MG TABLET PO (17:06)
[2024-07-05] MEDS: FUROSEMIDE 40 MG TABLET PO (17:06)
[2024-07-05 17:12] LABS: Glucose Point of Care 221 mg/dl (65-105)
[2024-07-05 20:37] LABS: Glucose Point of Care 258 mg/dl (65-105)
[2024-07-06] VITALS (11 sets, daily range): BP systolic 136–153; BP diastolic 73–89; PULSE 7–76; RESP 14–18; TEMP 36.1–36.7; O2SAT 97–100
--- NOTE | 2024-07-06 | ECHO_ITS ---
Patient Info Name: Parish Sim Age: 79 years : 1945 Gender: Male Ht: 66 in Wt: 168 lbs BSA: 1.90 m2 HR: 65 bpm BP: 148 / 83 mmHg Technical Quality: Fair Exam Date: 07/06/2024 9:33 AM Exam Location: Echo Lab Patient Status: Inpatient Admit Date: 07/05/2024 Staff Ordering Physician: Rosalind Gomez PA-C Geospatial Intelligence Analyst: Haley Jackson RDCS Attending Provider: Chas Shultz MD Referring Physician: Patricia AGUILERA; Exam Type: CA echo doppler color flow Study Info Indications - Syncope Complete two-dimensional, color flow and Doppler transthoracic echocardiogram is performed. Summary 1. Complete two-dimensional, color flow and Doppler transthoracic echocardiogram is performed. 2. Left ventricular systolic function is normal, estimated at 35-40%. 3. There is mildly increased left ventricular wall thickness. 4. Left ventricular septal wall motion is abnormal with septal motion related to pacing. 5. There is trace mitral valve regurgitation. 6. There is mild tricuspid valve regurgitation. 7. Mild pulmonary hypertension, estimated pulmonary arterial systolic pressure is 28 mmHg. Left Ventricle Left ventricular chamber dimension is normal. Left ventricular systolic function is normal, estimated at 35-40%. There is mildly increased left ventricular wall thickness. Left ventricular septal wall motion is abnormal with septal motion related to pacing. The left ventricular diastolic function is normal. Right Ventricle Right ventricular chamber dimension is normal. Right ventricular systolic function is normal. Linear artifact in right ventricle suggestive of catheter(s), pacemaker lead(s), or ICD lead(s). Left Atria Left atrial chamber dimension is normal. Right Atria Right atrial chamber dimension is normal. Aortic Valve The aortic valve is probable trileaflet. There is mild aortic valve sclerosis. There is no aortic valve stenosis. There is no aortic valve regurgitation. Pulmonic Valve The pulmonic valve is normal. There is no pulmonic valve stenosis. There is no pulmonic regurgitation. Mitral Valve The mitral valve has normal leaflets. There is no mitral valve stenosis. There is trace mitral valve regurgitation. Tricuspid Valve The tricuspid valve leaflets are normal. There is no significant tricuspid valve stenosis. There is mild tricuspid valve regurgitation. Mild pulmonary hypertension, estimated pulmonary arterial systolic pressure is 28 mmHg. Pericardium/Pleural The pericardium appears normal. There is no pericardial effusion. Inferior Vena Cava Normal inferior vena cava with >50% collapse upon inspiration consistent with Empty right atrial pressure, 5 mmHg. Aorta The aortic root size at the sinus of Valsalva is normal. The prox ascending aorta size is normal. Left Ventricular Outflow Tract Name Value Normal LVOT 2D LVOT Diameter 2.5 cm LVOT Doppler LVOT Peak Gradient 3 mmHg LVOT Mean Gradient 1 mmHg LVOT VTI 17 cm LVOT VTI/AV VTI Ratio 0.8 LVOT Stroke Volume 80 ml LVOT CO 5.3 l/min LVOT CI 2.8 l/min/m2 Pulmonic Valve Name Value Normal RVOT Doppler RVOT Peak Gradient 4 mmHg PV Doppler PV Peak Gradient 6 mmHg Mitral Valve Name Value Normal MV Doppler MV Decel [place] 235 cm/s2 MV PHT 54 ms MV Area (PHT) 4.1 cm2 4.0-5.0 MV Diastolic Function MV E Peak Velocity 44 cm/s MV A Peak Velocity 90 cm/s MV E/A 0.5 MV Decel Time 185 ms MV Annular TDI MV E/e' (Septal) 12.1 <=8.0 MV E/e' (Lateral) 8.8 <=8.0 MV E/e' (Average) 10.5 Tricuspid Valve Name Value Normal TV Regurgitation Doppler TR Peak Velocity 240 cm/s TR Peak Gradient 23 mmHg Estimated PAP/RSVP RA Pressure 5 mmHg <=5 PA Systolic Pressure 28 mmHg <36 RV Systolic Pressure 28 mmHg <36 Aortic Valve Name Value Normal AV Doppler AV Peak Velocity 101 cm/s AV Peak Gradient 4 mmHg AV Mean Gradient 3 mmHg AV VTI 21 cm AV Area (Cont Eq VTI) 3.8 cm2 >=3.0 AV Area (Cont Eq Zay) 4.2 cm2 AV Regurgitation 2D LVOT Area 4.8 cm2 Ventricles Name Value Normal LV Dimensions 2D/MM IVS Diastolic Thickness (2D) 1.3 cm 0.6-1.0 LVID Diastole (2D) 6.4 cm 4.2-5.8 LVIW Diastolic Thickness (2D) 1.6 cm 0.6-1.0 LVID Systole (2D) 5.1 cm 2.5-4.0 LVOT Diameter 2.5 cm LV Mass (2D Cubed) 446.56 g 88.00-224.00 LV Mass Index (2D Cubed) 235 g/m2 49-115 Relative Wall Thickness (2D) 0.50 LV Fractional Shortening/Ejection Fraction 2D/MM LV Fractional Shortening (2D) 21 % 25-43 LV EF (2D Teicholz) 41 % 52-72 LV Diastolic Volume (4C MOD) 223 ml LV EF (4C MOD) 57 % LV Diastolic Volume (2C MOD) 230 ml LV EF (2C MOD) 49 % LV Diastolic Volume (BP MOD) 216 ml 62-150 LV Diastolic Volume Index (BP MOD) 114 ml/m2 34-74 LV Systolic Volume (BP MOD) 102 ml 21-61 LV Systolic Volume Index (BP MOD) 54 ml/m2 11-31 LV EF (BP MOD) 53 % 52-72 LV Diastolic Length (4C) 9.7 cm LV Systolic Length (4C) 8.5 cm LV Stroke Volume (4C MOD) 127 ml Atria Name Value Normal LA Dimensions LA Volume (4C A-L) 77 ml LA Volume (BP A-L) 101 ml RA Dimensions RA Area (4C) 23.6 cm2 <=18.0 Report Signatures
[2024-07-06] MEDS: lisinopriL 20 MG TABLET PO (08:07)
[2024-07-06] MEDS: LORATADINE 10 MG TABLET PO (08:07)
[2024-07-06] MEDS: MAGNESIUM OXIDE 400 MG TABLET PO (08:07)
[2024-07-06] MEDS: ASPIRIN 81 MG ENTERIC TABLET PO (08:07)
[2024-07-06] MEDS: MECLIZINE HCL 6.25 MG TABLET PO ×2 (08:07→13:12)
[2024-07-06] MEDS: CYANOCOBALAMIN 1,000 MCG TABLET 1000 MCG PO (08:07)
[2024-07-06] MEDS: FUROSEMIDE 40 MG TABLET PO ×2 (08:07→20:09)
[2024-07-06 08:09] LABS: Glucose Point of Care 211 mg/dl (65-105)
--- NOTE | 2024-07-06 09:43 | P.PNIM_ITS ---
Progress Note: A&P Assessment and Plan (1) Syncope: Code(s): R55 - Syncope and collapse Status: Acute Assessment and Plan: Syncopal episode resulting in head strike with laceration Likely due to a combination of hypovolemia and orthostatic hypotension. May have some component of underlying orthostatic hypotension due to autonomic dysfunction given his history of peripheral neuropathy. Resume lasix 40 mg BID and spironolactone 25 mg daily, blood pressures have been stable Orthostatics were positive on admission, repeat negative Chest XR showed no acute cardiopulmonary pathology CT head showed no acute intracranial findings MRI was ordered in the ER due to reported dizziness and to rule out underlying intracranial process given the patient's history of metastatic cancer, however unable to obtain given pacemaker Echo ordered to evaluate heart function: LVEF 35-40% with normal diastolic dysfunction Patient follows with primary top stop attacher Dr. Meraz. Follow up with cardiology outpatient. Meclizine dose increased PT and OT evaluation, no further intervention required (2) Orthostatic hypotension: Code(s): I95.1 - Orthostatic hypotension Status: Acute Assessment and Plan: Positive on admission Resolved with fluids (3) Concussion with loss of consciousness: Qualifiers: Encounter type: initial encounter Qualified Code(s): S06.0X9A - Concussion with loss of consciousness of unspecified duration, initial encounter Code(s): S06.0X9A - Concussion with loss of consciousness of unspecified duration, initial encounter Status: Acute Assessment and Plan: Head CT showed no acute intracranial findings P.r.n. Tylenol Neurochecks (4) Pancytopenia: Code(s): D61.818 - Other pancytopenia Status: Acute Assessment and Plan: Secondary to colon cancer with metastases to the liver since 2019 and recent diagnosis of hematologic cancer currently undergoing treatment for both cancers at [facility] Daily CBC No signs of acute bleeding or evidence of infection (5) Type 2 diabetes mellitus with hyperglycemia, without long-term current use of insulin: Code(s): E11.65 - Type 2 diabetes mellitus with hyperglycemia Status: Acute Assessment and Plan: - hypoglycemia protocol - POC blood glucose ACHS - home medication - metformin 1000 mg BID - correct regimen ordered - mod dose TIDWM and HS - A1C 8.4 He continues have elevated blood glucose levels and notes he had a recent discussion with his primary care provider last visit were she increased his metformin dose to 1000 mg twice a day. Will restart this medication and monitor blood glucose levels. If patient continues to have hyperglycemia will consider starting him on Lantus. (6) B12 deficiency: Code(s): E53.8 - Deficiency of other specified B group vitamins Status: Acute Assessment and Plan: A portion of the patient's peripheral neuropathy may also be due to B12 deficiency. B12 < 159 Started on B12 supplementation, 1000 mcg PO daily and 1000 mcg IM weekly (7) Chronic eustachian tube dysfunction: Qualifiers: Laterality: bilateral Qualified Code(s): H69.93 - Unspecified Eustachian tube disorder, bilateral Code(s): H69.90 - Unspecified Eustachian tube disorder, unspecified ear Status: Acute Assessment and Plan: Patient reportedly had evidence of retracted tympanic membranes bilaterally. He likely has some component of eustachian tube dysfunction. Per chart review prior hospitalist performed osteopathic technique with resolution of the pressure sensation in his left ear. He did not have as much of an improvement with the right ear. Continue Zyrtec (8) Neck pain: Code(s): M54.2 - Cervicalgia Status: Acute Assessment and Plan: C spine CT showed no acute osseous abnormality of the cervical spine and multil evel degenerative disc disease. Likely related to patients acute injury resulting in whiplash, no tingling/numbness or shooting pains noted to the extremities Continue to work with PT/OT Tylenol and a K-pad. Denies any neck pain during assessment as well as any tingling/numbness or shooting pains to the extremities. Time Spent With Patient Time with patient: 25 - 35 minutes Subjective Date/time seen: 07/06/24 09:43 Interval history: 79-year-old male with a past medical history of essential hypertension, type 2 diabetes mellitus, diabetic peripheral neuropathy, obstructive sleep apnea, and what sounds like colon cancer with metastases to the liver since 2019 and recent diagnosis of hematologic cancer currently undergoing treatment for both cancers at [facility] who presented to the hospital from [facility] via EMS after syncopal event. Patient is pleasant lying comfortably in bed. He continues to endorse slight dizziness with standing however notes that this is much improved since admission and does not feel syncopal at time. Orthostatics remained negative. Meclizine dose increased. He has no other complaints denying chest pain, shortness a breath, palpitations, headache, neck pain, nausea/vomiting, and abdominal pain. He continues have elevated blood glucose levels and notes he had a recent discussion with his primary care provider last visit were she increased his m etformin dose to 1000 mg twice a day. Will restart this medication and monitor blood glucose levels. If patient continues to have hyperglycemia will consider starting him on Lantus. Patient states understanding. Review of Systems Review of Systems: All systems reviewed & are unremarkable except as noted in HPI and below Exam Narrative: AF HR 60 RR 16 SpO2 97 BP 136/76 General: male in no acute respiratory distress who is nontoxic appearing, lying semi recumbent in bed. HEENT: Normocephalic. Atraumatic. Extraocular movement intact. Sclera clear and anicteric. No facial asymmetry. Chest: Lungs are clear to auscultation bilaterally. No wheezes or crackles. CV: Heart was regular rate and rhythm. S1/S2. No murmurs, gallops, or rubs. Abd: Abdomen was soft. Nontender. Nondistended. Positive bowel sounds. Ext: No clubbing, cyanosis, or edema. DP pulses bilaterally. Neuro: Patient is alert and oriented x4. Speech is clear. Objective Data Vital Signs Vital Signs: Vital Signs - 24 hr 07/05/24 12:05 07/05/24 14:00 07/05/24 16:04 Temperature 97.6 F Pulse Rate 62 76 66 Respiratory Rate 18 Blood Pressure 139/70 Pulse Oximetry 99 Oxygen Delivery 07/05/24 19:45 07/05/24 19:48 07/05/24 20:00 Temperature 97.1 F L Pulse Rate 72 79 64 Respiratory Rate 18 Blood Pressure 145/86 H 133/79 Pulse Oximetry 100 98 Oxygen Delivery 07/06/24 00:00 07/06/24 04:00 07/06/24 04:21 Temperature 97 F L Pulse Rate 68 58 L 63 Respiratory Rate 14 Blood Pressure 148/83 H Pulse Oximetry 100 Oxygen Delivery 07/06/24 08:00 07/06/24 08:19 07/06/24 09:04 Temperature Pulse Rate 65 64 Respiratory Rate Blood Pressure 153/80 H 146/73 H Pulse Oximetry Oxygen Delivery Room Air 07/06/24 09:04 Temperature Pulse Rate 70 Respiratory Rate Blood Pressure 148/89 H Pulse Oximetry Oxygen Delivery Intake/Output Intake/Output: Intake & Output 07/03/24 07/04/24 07/05/24 07/06/24 23:59 23:59 23:59 23:59 Intake Total 1000 3010 2971.7 290 Output Total 1100 Balance 1000 3010 1871.7 290 Meds/Results Medications: Active Medications Generic Name Dose Route Start Last Admin Trade Name Freq PRN Reason Stop Dose Admin Acetaminophen 650 mg 07/04/24 03:38 07/05/24 05:43 Acetaminophen 325 Mg Tablet PO 650 mg Q4H PRN Administration pain 1-3 Aspirin 81 mg 07/04/24 09:00 07/06/24 08:07 Aspirin 81 Mg Enteric Tablet PO 81 mg DAILY ILYA Administration Atorvastatin Calcium 20 mg 07/03/24 21:05 07/05/24 17:06 Atorvastatin 20 Mg Tablet PO 20 mg QPM ILYA Administration Cyanocobalamin 1,000 mcg 07/10/24 09:00 Cyanocobalamin Inj 1,000 Mcg/Ml Vial IM WEEKLY ILYA Cyanocobalamin 1,000 mcg 07/04/24 09:00 07/06/24 08:07 Cyanocobalamin 1,000 Mcg Tablet PO 1,000 mcg QAM ILYA Administration Dextrose 12.5 gm 07/03/24 21:01 Dextrose 50% 25 Gm/50 Ml Syringe IV PUSH PRN PRN Hypoglycemia Protocol Furosemide 40 mg 07/05/24 14:55 07/06/24 08:07 Furosemide 40 Mg Tablet PO 40 mg Q12HR ILYA Administration Glucagon 1 mg 07/03/24 21:01 Glucagon For Inj 1 Mg Vial IM PRN PRN Hypoglycemia Protocol Glucose 15 gm 07/03/24 21:01 Glucose Oral Gel 15 Gm Of Glucse In 37.5 Gm Tube PO PRN PRN Hypoglycemia Protocol Dextrose 1,000 mls @ 100 mls/hr 07/03/24 21:01 Dextrose 5% 1,000 Ml IVPB PRN PRN Hypoglycemia Protocol Insulin Aspart 1 - 3 units 07/04/24 21:00 07/05/24 20:39 Insulin Aspart (*Bkc) 100 Units/Ml SUB-Q 2 units HS ILYA Administration Protocol Insulin Aspart 3 - 6 units 07/04/24 08:00 07/05/24 17:10 Insulin Aspart (*Bkc) 100 Units/Ml SUB-Q 3 units TIDWM ILYA Administration Protocol Lisinopril 20 mg 07/04/24 09:00 07/06/24 08:07 Lisinopril 20 Mg Tablet PO 20 mg DAILY ILYA Administration Loratadine 10 mg 07/04/24 14:05 07/06/24 08:07 Loratadine 10 Mg Tablet PO 10 mg QAM ILYA Administration Magnesium Oxide 400 mg 07/04/24 09:00 07/06/24 08:07 Magnesium Oxide 400 Mg Tablet PO 400 mg DAILY ILYA Administration Meclizine HCl 6.25 mg 07/04/24 13:00 07/06/24 08:07 Meclizine Hcl 6.25 Mg Tablet PO 6.25 mg TID ILYA Administration Perflutren Lipid Microsphere 0 ml 07/05/24 14:50 Perflutren Lipid Microspheres 1.5 Ml Vial Diluted To 10 Ml Total Volume IV PUSH 07/08/24 14:50 ONCE PRN adequate visualization Protocol Radiology Results: ITS Impressions Chest X-Ray 07/03/24 16:19 IMPRESSION: No acute cardiopulmonary pathology. Head CT 07/03/24 16:31 IMPRESSION: No acute intracranial findings. Cervical Spine CT 07/03/24 16:43 IMPRESSION: No acute osseous abnormality cervical spine. Multilevel degenerative disc disease. Labs Labs: Laboratory Results - last 24 hr 07/05/24 07/05/24 07/05/24 11:34 17:10 20:02 POC Capillary Glucose 224 H 221 H 258 H 07/06/24 08:05 POC Capillary Glucose 211 H Quality VTE Prophylaxis VTE prophylaxis: mechanical ordered (SCDs)
[2024-07-06] MEDS: INSULIN ASPART (*BKC) 100 UNITS/ML SUB-Q ×4 (09:52→20:09)
[2024-07-06 10:01] LABS: Hematocrit 30.4 % (42.0-52.0); Hemoglobin 10.1 g/dL (14.0-18.0); Immature Platelet Fraction Pct 3.9 % (0.9-11.2); Mean Corpuscular HGB Conc 33.2 g/dl (32-36); Mean Corpuscular Hemoglobin 34.8 pg (26-34); Mean Corpuscular Volume 104.8 fl (80-100); Mean Platelet Volume 9.8 fl (7.4-10.4); Platelet Count Result 87 k/mm3 (150-375); Red Cell Distribution Width 16.4 % (11.5-14.5); White Blood Count 3.2 K/mm3 (4.5-10.0)
[2024-07-06 10:17] LABS: Alanine Aminotransferase 15 U/L (6-50); Albumin Level 3.5 g/dL (3.5-5.1); Alkaline Phosphatase 57 U/L (38-126); Anion Gap 7 mmol/L (4-12); Aspartate Amino Transferase 20 U/L (17-59); Bilirubin,Total 3.6 mg/dL (0.2-1.3); Blood Urea Nitrogen 9 mg/dL (9-20); Calcium 8.1 mg/dL (8.4-10.2); Carbon Dioxide 27 mmol/L (22-30); Chloride 103 mmol/L (98-107); Estimated CRCL calculation 75 ml/min; Estimated Glomerular Filt Rate > 60; Glucose 270 mg/dL (65-110); Potassium 3.4 mmol/L (3.4-5.0); Sodium 137 mmol/L (137-145)
[2024-07-06 12:20] LABS: Glucose Point of Care 244 mg/dl (65-105)
[2024-07-06 17:19] LABS: Glucose Point of Care 254 mg/dl (65-105)
[2024-07-06] MEDS: metFORMIN HCL 500 MG TABLET 1000 MG PO (17:38)
[2024-07-06] MEDS: MECLIZINE HCL 12.5 MG TABLET PO (17:38)
[2024-07-06] MEDS: ATORVASTATIN 20 MG TABLET PO (17:38)
[2024-07-07] VITALS (13 sets, daily range): BP systolic 91–152; BP diastolic 59–88; PULSE 62–78; RESP 1–18; TEMP 35.9–36.7; O2SAT 95–100
[2024-07-07 00:41] LABS: Glucose Point of Care 257 mg/dl (65-105)
[2024-07-07 05:25] LABS: Hematocrit 30.5 % (42.0-52.0); Hemoglobin 10.4 g/dL (14.0-18.0); Immature Platelet Fraction Pct 4.6 % (0.9-11.2); Mean Corpuscular HGB Conc 34.1 g/dl (32-36); Mean Corpuscular Hemoglobin 35.4 pg (26-34); Mean Corpuscular Volume 103.7 fl (80-100); Platelet Count Result 92 k/mm3 (150-375); Red Blood Count 2.94 M/mm3 (4.6-6.20); Red Cell Distribution Width 16.1 % (11.5-14.5); White Blood Count 3.7 K/mm3 (4.5-10.0)
[2024-07-07 05:35] LABS: Alanine Aminotransferase 14 U/L (6-50); Albumin Level 3.7 g/dL (3.5-5.1); Alkaline Phosphatase 58 U/L (38-126); Anion Gap 9 mmol/L (4-12); Aspartate Amino Transferase 20 U/L (17-59); Bilirubin,Total 3.4 mg/dL (0.2-1.3); Blood Urea Nitrogen 9 mg/dL (9-20); Calcium 8.2 mg/dL (8.4-10.2); Carbon Dioxide 28 mmol/L (22-30); Chloride 100 mmol/L (98-107); Estimated CRCL calculation 77 ml/min; Estimated Glomerular Filt Rate > 60; Glucose 196 mg/dL (65-110); Sodium 137 mmol/L (137-145)
--- NOTE | 2024-07-07 08:12 | P.PNIM_ITS ---
Progress Note: A&P Assessment and Plan (1) Syncope: Code(s): R55 - Syncope and collapse Status: Acute Assessment and Plan: Syncopal episode resulting in head strike with laceration on admission Likely due to a combination of hypovolemia and orthostatic hypotension. May have some component of underlying orthostatic hypotension due to autonomic dysfunction given his history of peripheral neuropathy. Resume lasix 40 mg BID and spironolactone 25 mg daily, blood pressures have been stable Orthostatics were positive on admission, repeat negative Chest XR showed no acute cardiopulmonary pathology CT head showed no acute intracranial findings MRI was ordered in the ER due to reported dizziness and to rule out underlying intracranial process given the patient's history of metastatic cancer, however unable to obtain given pacemaker Echo ordered to evaluate heart function: LVEF 35-40% with normal diastolic dysfunction Patient follows with primary human services program specialist Dr. Meraz. Meclizine dose increased PT and OT evaluation, no further intervention required Patient had another syncopal episode today, see rapid response note. Likely vasovagal vs orthostatic hypotension vs bradycardia vs other Evaluated by cardiology. Spironolactone and lasix DC, lisinopril dose decreased to 5 mg daily. Continue asa and jardiance. Interrogate pacemaker. (2) Heart failure with reduced ejection fraction: Code(s): I50.20 - Unspecified systolic (congestive) heart failure Status: Acute Assessment and Plan: Echo ordered to evaluate heart function: LVEF 35-40% with normal diastolic dysfunction Patient follows with primary human services program specialist Dr. Meraz. Cardiology consulted Due to orthostatic hypotension lasix and spironolactone was dc lisinopril dose decreased to 5 mg daily patient cannot tolerate a beta nathaniel as his heart rate lowered into the 30s today Continue asa and jardiance (3) Orthostatic hypotension: Code(s): I95.1 - Orthostatic hypotension Status: Acute Assessment and Plan: Positive on admission Resolved with fluids (4) Concussion with loss of consciousness: Qualifiers: Encounter type: initial encounter Qualified Code(s): S06.0X9A - Concussion with loss of consciousness of unspecified duration, initial encounter Code(s): S06.0X9A - Concussion with loss of consciousness of unspecified duration, initial encounter Status: Acute Assessment and Plan: Head CT showed no acute intracranial findings P.r.n. Tylenol Neurochecks (5) Pancytopenia: Code(s): D61.818 - Other pancytopenia Status: Acute Assessment and Plan: Secondary to colon cancer with metastases to the liver since 2019 and recent diagnosis of hematologic cancer currently undergoing treatment for both cancers at [facility] Iron panel ordered Started on B12 supplementation for B12 deficiency, folate WNL Daily CBC No signs of acute bleeding or evidence of infection (6) Type 2 diabetes mellitus with hyperglycemia, without long-term current use of insulin: Code(s): E11.65 - Type 2 diabetes mellitus with hyperglycemia Status: Acute Assessment and Plan: He continues have elevated blood glucose levels and notes he had a recent discussion with his primary care provider last visit were she increased his metformin dose to 1000 mg twice a day. Will restart this medication and monitor blood glucose levels. - hypoglycemia protocol - POC blood glucose ACHS - home medication - metformin 1000 mg BID - correct regimen ordered - mod dose TIDWM and HS - A1C 8.4 Given patients cocurrent HFrEF will start Jardiance 10 mg daily which will lopez bsequently help with blood glucose control. Continue to monitor. (7) B12 deficiency: Code(s): E53.8 - Deficiency of other specified B group vitamins Status: Acute Assessment and Plan: A portion of the patient's peripheral neuropathy may also be due to B12 deficiency. B12 < 159 Started on B12 supplementation, 1000 mcg PO daily and 1000 mcg IM weekly (8) Chronic eustachian tube dysfunction: Qualifiers: Laterality: bilateral Qualified Code(s): H69.93 - Unspecified Eustachian tube disorder, bilateral Code(s): H69.90 - Unspecified Eustachian tube disorder, unspecified ear Status: Acute Assessment and Plan: Patient reportedly had evidence of retracted tympanic membranes bilaterally. He likely has some component of eustachian tube dysfunction. Per chart review prior hospitalist performed osteopathic technique with resolution of the pressure sensation in his left ear. He did not have as much of an improvement with the right ear. Continue Zyrtec (9) Neck pain: Code(s): M54.2 - Cervicalgia Status: Acute Assessment and Plan: C spine CT showed no acute osseous abnormality of the cervical spine and multilevel degenerative disc disease. Likely related to patients acute injury resulting in whiplash, no tingling/num bness or shooting pains noted to the extremities Continue to work with PT/OT Tylenol and a K-pad. Denies any neck pain during assessment as well as any tingling/numbness or shooting pains to the extremities. Subjective Date/time seen: 07/07/24 08:12 Interval history: 79-year-old male with a past medical history of essential hypertension, type 2 diabetes mellitus, diabetic peripheral neuropathy, obstructive sleep apnea, and what sounds like colon cancer with metastases to the liver since 2019 and recent diagnosis of hematologic cancer currently undergoing treatment for both cancers at [facility] who presented to the hospital from [facility] via EMS after syncopal event. See critical care note about rapid response called this morning. Returned to patients room and he is pleasant lying comfortably in bed. He continues to endorse feeling weak and puny but denies any chest pain/discomfort/pressure, palpitations, shortness of breath, nasuea/vomiting and abdominal pain. Review of Systems Review of Systems: All systems reviewed & are unremarkable except as noted in HPI and below Exam Narrative: AF HR 78 RR 18 SPO2 96 BP 131/80 General: male in no acute respiratory distress who is nontoxic appearing, lying semi recumbent in bed. HEENT: Normocephalic. Atraumatic. Extraocular movement intact. Sclera clear and anicteric. No facial asymmetry. Chest: Lungs are clear to auscultation bilaterally. No wheezes or crackles. CV: Heart was regular rate and rhythm. Abd: Abdomen was soft. Nontender. Nondistended. Positive bowel sounds. Ext: No clubbing, cyanosis, or edema. DP pulses bilaterally. Neuro: Patient is alert and oriented x4. Speech is clear. Objective Data Vital Signs Vital Signs: Vital Signs - 24 hr 07/06/24 08:19 07/06/24 09:04 07/06/24 09:04 Temperature Pulse Rate 64 70 Respiratory Rate Blood Pressure 146/73 H 148/89 H Pulse Oximetry Oxygen Delivery Room Air 07/06/24 12:00 07/06/24 14:00 07/06/24 16:00 Temperature 97.5 F L Pulse Rate 76 60 70 Respiratory Rate 16 Blood Pressure 136/76 Pulse Oximetry 97 Oxygen Delivery 07/06/24 19:43 07/06/24 19:48 07/06/24 20:00 Temperature 98.1 F Pulse Rate 62 71 7 L Respiratory Rate 18 Blood Pressure 146/77 H 139/78 Pulse Oximetry 98 Oxygen Delivery 07/07/24 00:00 07/07/24 04:00 07/07/24 04:44 Temperature 98.1 F Pulse Rate 75 63 72 Respiratory Rate 16 Blood Pressure 151/75 H Pulse Oximetry 100 Oxygen Delivery Intake/Output Intake/Output: Intake & Output 07/04/24 07/05/24 07/06/24 07/07/24 23:59 23:59 23:59 23:59 Intake Total 3010 2971.7 1020 Output Total 1100 400 600 Balance 3010 1871.7 620 -600 Meds/Results Medications: Active Medications Generic Name Dose Route Start Last Admin Trade Name Freq PRN Reason Stop Dose Admin Acetaminophen 650 mg 07/04/24 03:38 07/05/24 05:43 Acetaminophen 325 Mg Tablet PO 650 mg Q4H PRN Administration pain 1-3 Aspirin 81 mg 07/04/24 09:00 07/06/24 08:07 Aspirin 81 Mg Enteric Tablet PO 81 mg DAILY ILYA Administration Atorvastatin Calcium 20 mg 07/03/24 21:05 07/06/24 17:38 Atorvastatin 20 Mg Tablet PO 20 mg QPM ILYA Administration Cyanocobalamin 1,000 mcg 07/10/24 09:00 Cyanocobalamin Inj 1,000 Mcg/Ml Vial IM WEEKLY ILYA Cyanocobalamin 1,000 mcg 07/04/24 09:00 07/06/24 08:07 Cyanocobalamin 1,000 Mcg Tablet PO 1,000 mcg QAM ILYA Administration Dextrose 12.5 gm 07/03/24 21:01 Dextrose 50% 25 Gm/50 Ml Syringe IV PUSH PRN PRN Hypoglycemia Protocol Empagliflozin 10 mg 07/07/24 09:00 Empagliflozin 10 Mg Tablet PO DAILY ILYA Furosemide 40 mg 07/05/24 14:55 07/06/24 20:09 Furosemide 40 Mg Tablet PO 40 mg Q12HR ILYA Administration Glucagon 1 mg 07/03/24 21:01 Glucagon For Inj 1 Mg Vial IM PRN PRN Hypoglycemia Protocol Glucose 15 gm 07/03/24 21:01 Glucose Oral Gel 15 Gm Of Glucse In 37.5 Gm Tube PO PRN PRN Hypoglycemia Protocol Dextrose 1,000 mls @ 100 mls/hr 07/03/24 21:01 Dextrose 5% 1,000 Ml IVPB PRN PRN Hypoglycemia Protocol Potassium Chloride 100 mls @ 50 mls/hr 07/07/24 07:45 Kcl 20 Meq/Sw 100 Ml IVPB 07/07/24 09:44 ONCE ONE Insulin Aspart 1 - 3 units 07/04/24 21:00 07/06/24 20:09 Insulin Aspart (*Bkc) 100 Units/Ml SUB-Q 2 units HS ILYA Administration Protocol Insulin Aspart 3 - 6 units 07/04/24 08:00 07/06/24 17:37 Insulin Aspart (*Bkc) 100 Units/Ml SUB-Q 4 units TIDWM ILYA Administration Protocol Lisinopril 20 mg 07/04/24 09:00 07/06/24 08:07 Lisinopril 20 Mg Tablet PO 20 mg DAILY ILYA Administration Loratadine 10 mg 07/04/24 14:05 07/06/24 08:07 Loratadine 10 Mg Tablet PO 10 mg QAM ILYA Administration Magnesium Oxide 400 mg 07/04/24 09:00 07/06/24 08:07 Magnesium Oxide 400 Mg Tablet PO 400 mg DAILY ILYA Administration Meclizine HCl 12.5 mg 07/06/24 17:00 07/06/24 17:38 Meclizine Hcl 12.5 Mg Tablet PO 12.5 mg TID ILYA Administration Metformin HCl 1,000 mg 07/06/24 17:00 07/06/24 17:38 Metformin Hcl 500 Mg Tablet PO 1,000 mg BIDWM ILYA Administration Perflutren Lipid Microsphere 0 ml 07/05/24 14:50 Perflutren Lipid Microspheres 1.5 Ml Vial Diluted To 10 Ml Total Volume IV PUSH 07/08/24 14:50 ONCE PRN adequate visualization Protocol Spironolactone 25 mg 07/07/24 09:00 Spironolactone 25 Mg Tablet PO QAM [facility] Radiology Results: ITS Impressions Chest X-Ray 07/03/24 16:19 IMPRESSION: No acute cardiopulmonary pathology. Head CT 07/03/24 16:31 IMPRESSION: No acute intracranial findings. Cervical Spine CT 07/03/24 16:43 IMPRESSION: No acute osseous abnormality cervical spine. Multilevel degenerative disc disease. Labs Labs: Laboratory Results - last 24 hr 07/06/24 07/06/24 07/06/24 09:52 12:17 17:09 WBC 3.2 L RBC 2.90 L Hgb 10.1 L Hct 30.4 L MCV 104.8 H MCH 34.8 H MCHC 33.2 RDW 16.4 H Plt Count 87 L MPV 9.8 % Immature Plt Fraction 3.9 Sodium 137 Potassium 3.4 Chloride 103 Carbon Dioxide 27 Anion Gap 7 BUN 9 Creatinine 0.72 Estim Creat Clear Calc 75 Estimated GFR > 60 Glucose 270 H POC Capillary Glucose 244 H 254 H Calcium 8.1 L Total Bilirubin 3.6 H AST 20 ALT 15 Alkaline Phosphatase 57 Total Protein 6.0 L Albumin 3.5 07/06/24 07/07/24 19:59 04:49 WBC 3.7 L RBC 2.94 L Hgb 10.4 L Hct 30.5 L MCV 103.7 H MCH 35.4 H MCHC 34.1 RDW 16.1 H Plt Count 92 L MPV 10.0 % Immature Plt Fraction 4.6 Sodium 137 Potassium 3.0 L Chloride 100 Carbon Dioxide 28 Anion Gap 9 BUN 9 Creatinine 0.70 Estim Creat Clear Calc 77 Estimated GFR > 60 Glucose 196 H POC Capillary Glucose 257 H Calcium 8.2 L Total Bilirubin 3.4 H AST 20 ALT 14 Alkaline Phosphatase 58 Total Protein 6.0 L Albumin 3.7 Quality VTE Prophylaxis VTE prophylaxis: mechanical ordered (SCDs)
[2024-07-07] MEDS: SPIRONOLACTONE 25 MG TABLET PO (08:43)
[2024-07-07] MEDS: EMPAGLIFLOZIN 10 MG TABLET PO (08:43)
[2024-07-07] MEDS: ASPIRIN 81 MG ENTERIC TABLET PO (08:43)
[2024-07-07] MEDS: FUROSEMIDE 40 MG TABLET PO (08:44)
[2024-07-07] MEDS: lisinopriL 20 MG TABLET PO (08:44)
[2024-07-07] MEDS: MECLIZINE HCL 12.5 MG TABLET PO ×3 (08:44→17:23)
[2024-07-07] MEDS: CYANOCOBALAMIN 1,000 MCG TABLET 1000 MCG PO (08:44)
[2024-07-07] MEDS: LORATADINE 10 MG TABLET PO (08:44)
[2024-07-07] MEDS: metFORMIN HCL 500 MG TABLET 1000 MG PO ×2 (08:44→17:23)
[2024-07-07] MEDS: MAGNESIUM OXIDE 400 MG TABLET PO (08:44)
[2024-07-07] MEDS: POTASSIUM CHLORIDE 20 MEQ ER TABLET 40 MEQ PO (08:45)
[2024-07-07 08:54] LABS: Glucose Point of Care 212 mg/dl (65-105)
[2024-07-07] MEDS: INSULIN ASPART (*BKC) 100 UNITS/ML SUB-Q ×2 (08:59→12:37)
--- NOTE | 2024-07-07 09:17 | ECG_ITS ---
Test Date: 2024-07-07 09:22:14 Measurements Intervals [place] Rate: 60 P: 5 OH: 185 QRS: -21 QRSD: 136 T: 147 QT: 478 QTc: 480 Interpretive Statements SINUS RHYTHM WITH OCCASIONAL VENTRICULAR PREMATURE COMPLEXES LEFT BUNDLE BRANCH BLOCK BASELINE ARTIFACT- AVR, V1-V6 ABNORMAL ECG Compared to ECG 07/03/2024 16:08:44 NO SIGNIFICANT CHANGE Electronically Signed On 07-07-2024 11:48:45 CDT by Jim Dubois D.O.
[2024-07-07 09:21] LABS: Glucose Point of Care 239 mg/dl (65-105)
[2024-07-07 09:45] LABS: Hematocrit 34.2 % (42.0-52.0); Hemoglobin 11.5 g/dL (14.0-18.0); Immature Platelet Fraction Pct 5.3 % (0.9-11.2); Mean Corpuscular HGB Conc 33.6 g/dl (32-36); Mean Corpuscular Hemoglobin 35.1 pg (26-34); Mean Corpuscular Volume 104.3 fl (80-100); Mean Platelet Volume 10.3 fl (7.4-10.4); Platelet Count Result 113 k/mm3 (150-375); Red Blood Count 3.28 M/mm3 (4.6-6.20); Red Cell Distribution Width 16.4 % (11.5-14.5); White Blood Count 4.1 K/mm3 (4.5-10.0)
[2024-07-07 09:55] LABS: Alanine Aminotransferase 17 U/L (6-50); Albumin Level 3.9 g/dL (3.5-5.1); Alkaline Phosphatase 68 U/L (38-126); Anion Gap 14 mmol/L (4-12); Aspartate Amino Transferase 21 U/L (17-59); Bilirubin,Total 4.2 mg/dL (0.2-1.3); Blood Urea Nitrogen 10 mg/dL (9-20); Calcium 8.5 mg/dL (8.4-10.2); Carbon Dioxide 22 mmol/L (22-30); Chloride 102 mmol/L (98-107); Estimated CRCL calculation 74 ml/min; Estimated Glomerular Filt Rate > 60; Glucose 233 mg/dL (65-110); Magnesium 1.6 mg/dL (1.6-2.3); Potassium 3.2 mmol/L (3.4-5.0); Sodium 138 mmol/L (137-145)
[2024-07-07 09:56] LABS: Lactic Acid Reflex 3.7 mmol/L (0.7-2.0)
[2024-07-07 10:10] LABS: Troponin I 0.053 ng/mL (0.000-0.034)
[2024-07-07 11:40] LABS: Reflex Lactic Acid Yes or No Add Lactic
--- NOTE | 2024-07-07 11:42 | PM.CNCAR ---
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 Patient will not standing when he suddenly felt dizzy and had transient loss of consciousness. He was admitted to the hospital for workup and this morning patient was sitting in the bathroom when he suddenly felt dizzy and passed out again. During this episode today patient was noted to have heart rate in the 39 beats per minute paced rhythm. Patient's history of ischemic cardiomyopathy and noticed echocardiogram for last 2 years. He has also history of dual-chamber pacemaker. Patient has history of metastatic neuroendocrine tumor. He has no prior similar episodes. [facility] Past Medical History Medical History (Updated 07/04/24 @ 09:49 by Dina Jansen, MIKAYLA) History of GI bleed (~2019) Retinal tears, multiple, without detachment Right eye Coronary artery disease Prostate cancer (~2019) Status post chemotherapy Essential hypertension Retinal detachment of left eye due to tear of retina Status post surgical repair Type 2 diabetes mellitus Diabetic peripheral neuropathy Hematologic malignancy (01/2024) Colon cancer metastasized to liver (~2019) Surgical History Surgical History (Updated 07/03/24 @ 23:12 by Linh Sam DO) Status post cholecystectomy (~2019) Status post cardiac pacemaker procedure (~2019) History of bowel resection (~2019) Due to colon mass that was discovered during cholecystectomy Status post cataract extraction of both eyes with insertion of intraocular lens (~1994) Family History Family History Mother Diabetes mellitus Father Heart disease Social History Social History (Updated 07/03/24 @ 23:04 by Linh Sam DO) Social History: The patient has been since 2023. He and his were for 60 years prior to her . He lives in his own home and is independent in all activities of daily living including driving. He briefly smoked for 1 year when he was young. He denies any history of alcohol or illicit substance use. He has 1 daughter and 1 son. 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 Code status: Full code (patient reports he would not want to be on long-term ventilator, tracheostomy, feeding tube or dependent on others) Surrogate decision maker: Carmen (daughter) Smoking status: Never smoker Alcohol intake: never Substance use: never Do You Feel Safe in your Home?: Yes Lack of Transportation: No Lack of Food: Never True Current Housing: I Have Housing Concerned About Future Housing: No Difficulty Paying Gas/Electric Bills: No Difficulty Paying for Meds: No Currently Unemployed: No Education: Trade/Vocational Certificate Difficulty w/ Childcare or Family Care: No Spiritual care concerns: No Meds Home Medications and Allergies Home Medications ?Medication ?Instructions ?Recorded ?Confirmed ?Type aspirin 81 mg tablet,delayed 81 mg PO DAILY 07/03/24 07/03/24 History release atorvastatin 20 mg tablet 20 mg PO QPM 07/03/24 07/03/24 History furosemide 40 mg tablet 40 mg PO Q12H 07/03/24 07/03/24 History lisinopril 20 mg tablet 20 mg PO DAILY 07/03/24 07/03/24 History magnesium aspart,citrate,oxide 400 mg PO DAILY 07/03/24 07/03/24 History metformin 500 mg tablet 1,000 mg PO BID 07/03/24 07/03/24 History spironolactone 25 mg tablet 25 mg PO DAILY 07/03/24 07/03/24 History Allergies Allergy/AdvReac Type Severity Reaction Status Date / Time No Known Allergies Allergy Verified 07/03/24 15:51 Vital Signs Vital Signs - 24 hr 07/06/24 12:00 07/06/24 14:00 07/06/24 16:00 Temperature 36.4 C L Pulse Rate 76 60 70 Respiratory Rate 16 Blood Pressure 136/76 Pulse Oximetry 97 Oxygen Delivery 07/06/24 19:43 07/06/24 19:48 07/06/24 20:00 Temperature 36.7 C Pulse Rate 62 71 7 L Respiratory Rate 18 Blood Pressure 146/77 H 139/78 Pulse Oximetry 98 Oxygen Delivery 07/07/24 00:00 07/07/24 04:00 07/07/24 04:44 Temperature 36.7 C Pulse Rate 75 63 72 Respiratory Rate 16 Blood Pressure 151/75 H Pulse Oximetry 100 Oxygen Delivery 07/07/24 08:00 07/07/24 09:29 07/07/24 09:59 Temperature 36.1 C L 36.2 C L Pulse Rate 72 77 72 Respiratory Rate 1 L 12 18 Blood Pressure 147/75 H 128/72 139/88 Pulse Oximetry 98 99 95 Oxygen Delivery Room Air 07/07/24 10:00 Temperature 36.2 C L Pulse Rate 78 Respiratory Rate 18 Blood Pressure 131/80 Pulse Oximetry 96 Oxygen Delivery Exam Const: General: comfortable and no acute distress Other: Able to lie flat HENMT: Face/Nose/Sinus: Normal nares present and no epistaxis Mouth: Yes moist mucous membranes Eyes: Sclera: sclerae normal Pupils: Equal, round and reactive pupils present Neck: Neck: supple and no JVD Carotids: no bruits Resp: Auscultation: clear to auscultation bilaterally and lung sounds not diminished Other: No chest wall tenderness Cardio: Rate: regular rate Rhythm: regular rhythm Heart sounds: no gallops, no murmurs and no rubs GI: GI Palp: Yes Soft to palpation and No Tenderness to palpation present (GI) Auscultation: normal bowel sounds Skin: General skin exam: normal color, rashes and/or lesions noted and no erythema Other: Warm Neuro: Cranial nerves: Yes Equal, round and reactive pupils present Speech: normal speech Other: No obvious focal deficit or facial asymmetry Extrem: General: no edema Other: Normal capillary refills Intact distal pulses. Results Labs and Meds 07/07/24 09:35 07/07/24 09:36 Lab results: Cardiac Enzymes 07/07/24 07/07/24 07/07/24 Range/Units 04:49 09:35 09:36 AST 20 21 (17-59) U/L Troponin I 0.053 H* (0.000-0.034) ng/mL CBC 07/07/24 07/07/24 Range/Units 04:49 09:35 WBC 3.7 L 4.1 L (4.5-10.0) K/mm3 RBC 2.94 L 3.28 L (4.6-6.20) M/mm3 Hgb 10.4 L 11.5 L (14.0-18.0) g/dL Hct 30.5 L 34.2 L (42.0-52.0) % Plt Count 92 L 113 L (150-375) k/mm3 Comprehensive Metabolic Panel 07/07/24 07/07/24 Range/Units 04:49 09:36 Sodium 137 138 (137-145) mmol/L Potassium 3.0 L 3.2 L (3.4-5.0) mmol/L Chloride 100 102 (98-107) mmol/L Carbon Dioxide 28 22 (22-30) mmol/L BUN 9 10 (9-20) mg/dL Creatinine 0.70 0.73 (0.7-1.3) mg/dL Glucose 196 H 233 H (65-110) mg/dL Calcium 8.2 L 8.5 (8.4-10.2) mg/dL AST 20 21 (17-59) U/L ALT 14 17 (6-50) U/L Alkaline Phosphatase 58 68 (38-126) U/L Total Protein 6.0 L 6.0 L (6.3-8.2) g/dL Albumin 3.7 3.9 (3.5-5.1) g/dL Intake and Output 07/06/24 07/07/24 07/07/24 23:59 07:59 15:59 Intake Total 490 360 Output Total 600 Balance 490 -600 360 Intake: Oral 490 360 Output: Urine 600 Other: # Unmeasured Voids 1 2 1 Number of Bowel Movements Today 2 1
[2024-07-07 12:04] LABS: Glucose Point of Care 236 mg/dl (65-105)
[2024-07-07] MEDS: MAGNESIUM SULF 1 GM/D5W 100 ML 1 GM/100 ML BAG IVPB (12:44)
[2024-07-07 13:04] LABS: Troponin I 0.033 ng/mL (0.000-0.034)
[2024-07-07 13:12] LABS: Lactic Acid 4.9 mmol/L (0.7-2.0)
--- NOTE | 2024-07-07 13:32 | PM.CCN ---
Critical Care Event Note Summary Code activated: No Narrative: This case had a high probability of a clinically significant, sudden, or life threatening deterioration of this patient's condition which required my full and direct attention, intervention and personal management. Was reviewing patients telemetry when he started to zenaida down into the 30s. Reported to patients room and he was slightly straining to have bowel movement on the toilet. Informed patient to stop straining as this can lower heart rate. He then became extremely diaphoretic with poor muscle tone and was unable to answer questions. He reported dizziness at that time before having a syncopal episode. Likely vasovagal however he was admitted for syncope and has a reduced EF on echo. A rapid was called at that time and patient was sera steadied to bed. Considered atropine administration however heart rate improved without intervention, on telemetry pacemaker kicked in when heart rate was in the 30s. Patient endorsing dizziness and nausea. He was actively wrenching but had no vomiting in bed. He had no other complaints denying chest pain/pressure/discomfort, palpitations, weakness/numbness, shortness of breath, and abdominal pain. Will have pacemaker interrogated as his lower rate limit likely needs increased, per patient he was suppose to have this interrogated at his last cardiology appointment but had to reschedule. EKG: sinus rhythm with HR 60 Chest XR and head CT unremarkable Mag 1.6, given 1 g IV CBC and CMP seemingly unchanged since am labs Troponin slightly elevated at 0.053 likely demand ischemia secondary to bradycardia, peaked and has since downtrended Lactic acid elevated. 3.7>4.9, IV fluid bolus given and will continue to monitor. No obvious signs of infection. However will obtain CT chest/abdomen/pelvis, blood cultures, MRSA swab and start empiric antibiotics with vanc/cefe/flagly. Exam after returning to bed: HR 77RR 12SpO2 99BP 128/72 General: male in no acute respiratory distress, lying semi recumbent in bed. HEENT: Normocephalic. Atraumatic. PERRLA. Extraocular movement intact. Sclera clear and anicteric. No facial asymmetry. Chest: Lungs are clear to auscultation bilaterally. No wheezes or crackles. CV: Heart was sinus zenaida. Abd: Abdomen was soft. Nontender. Nondistended. Positive bowel sounds. Neuro: Patient is alert and oriented x4. Strength is symmetrical in the upper and lower extremities bilaterally. No upper extremity drift. Speech is clear. Critical care time: 30 - 74 mins
[2024-07-07] MEDS: SODIUM CHLORIDE 0.9% IV 1,000 ML 250 ML IV CONT (14:11)
[2024-07-07] MEDS: metroNIDAZOLE 500 MG TABLET PO ×2 (14:12→21:26)
[2024-07-07] MEDS: CEFEPIME 1 GM/NS 50 ML 1 GM/50 ML BAG IVPB (14:22)
[2024-07-07] MEDS: VANCOMYCIN 1,250 MG/NS 250 ML 1,250 MG/250 ML BAG 166.67 MG IVPB (14:54)
[2024-07-07 15:50] LABS: MRSA (PCR) NOT DETECTED (NOT DETECTE)
[2024-07-07 16:24] LABS: Add Urine Microscopic? NO; Appearance Urine Clear (Clear); Bilirubin Urine Negative (Negative); Blood Urine Negative (Negative); Color Urine Yellow (Yellow); Glucose Urine UA 3+ mg/dL (Negative); Ketones Urine Trace mg/dL (Negative); Leukocyte Esterase Ur Negative LEU/UL (Negative); Nitrate Urine Negative (Negative); Protein Urine Negative (Negative); Specific Grav Ur 1.026 (1.001-1.035); Urobilinogen Urine 0.2 mg/dL (<2.0); pH Urine 5.5 (5.0-9.0)
[2024-07-07 16:31] LABS: Iron 61 ug/dL (49-181)
[2024-07-07] MEDS: VANCOMYCIN 1,000 MG/NS 250 ML 1,000 MG/250 ML BAG 250 MG IVPB (16:35)
[2024-07-07 16:40] LABS: Percent Iron Saturation 21 % (20-50)
[2024-07-07 16:41] LABS: Glucose Point of Care 172 mg/dl (65-105)
[2024-07-07] MEDS: ATORVASTATIN 20 MG TABLET PO (17:23)
[2024-07-07 22:06] LABS: Glucose Point of Care 165 mg/dl (65-105)
[2024-07-08] VITALS (13 sets, daily range): BP systolic 122–150; BP diastolic 69–85; PULSE 59–84; RESP 16–18; TEMP 36.1–36.6; O2SAT 97–100
[2024-07-08] MEDS: CEFEPIME 1 GM/NS 50 ML 1 GM/50 ML BAG IVPB ×2 (02:53→12:58)
[2024-07-08] MEDS: metroNIDAZOLE 500 MG TABLET PO ×3 (05:05→21:12)
[2024-07-08 05:20] LABS: Hematocrit 29.2 % (42.0-52.0); Immature Platelet Fraction Pct 4.7 % (0.9-11.2); Mean Corpuscular HGB Conc 34.2 g/dl (32-36); Mean Corpuscular Hemoglobin 35.5 pg (26-34); Mean Corpuscular Volume 103.5 fl (80-100); Mean Platelet Volume 10.3 fl (7.4-10.4); Platelet Count Result 88 k/mm3 (150-375); Red Blood Count 2.82 M/mm3 (4.6-6.20); Red Cell Distribution Width 16.5 % (11.5-14.5); White Blood Count 3.6 K/mm3 (4.5-10.0)
[2024-07-08 05:33] LABS: Alanine Aminotransferase 15 U/L (6-50); Albumin Level 3.6 g/dL (3.5-5.1); Alkaline Phosphatase 55 U/L (38-126); Anion Gap 11 mmol/L (4-12); Aspartate Amino Transferase 21 U/L (17-59); Bilirubin,Total 3.9 mg/dL (0.2-1.3); Blood Urea Nitrogen 11 mg/dL (9-20); Calcium 8.3 mg/dL (8.4-10.2); Carbon Dioxide 24 mmol/L (22-30); Chloride 105 mmol/L (98-107); Estimated CRCL calculation 75 ml/min; Estimated Glomerular Filt Rate > 60; Glucose 156 mg/dL (65-110); Potassium 3.4 mmol/L (3.4-5.0); Sodium 140 mmol/L (137-145)
[2024-07-08 05:35] LABS: Lactic Acid Reflex 1.5 mmol/L (0.7-2.0)
--- NOTE | 2024-07-08 08:43 | PM.IMPN ---
Progress Note: A&P Assessment and Plan (1) Lactic acidosis: Code(s): E87.20 - Acidosis, unspecified Status: Acute Assessment and Plan: Lactic acid elevated. 3.7>4.9, received 1L bolus and has returned to WNL. No obvious signs of infection. However will obtain CT chest/abdomen/pelvis, blood cultures, MRSA swab and start empiric antibiotics with vanc/cefe/flagly. CT chest/abdomen/pelvis showed small bilateral pleural effusions, hepatomegaly, liver lesions (known liver cancer), rectal wall thickening, and a distended urinary bladder with mild inflammation UA unremarkable Blood cultures obtained on 07/07: pending Vancomycin DC as MRSA negative and no signs of pneumonia on imaging Remains on cefe and flagyl (2) Syncope: Code(s): R55 - Syncope and collapse Status: Acute Assessment and Plan: Syncopal episode resulting in head strike with laceration on admission Likely due to a combination of hypovolemia and orthostatic hypotension. May have some component of underlying orthostatic hypotension due to autonomic dysfunction given his history of peripheral neuropathy. Resume lasix 40 mg BID and spironolactone 25 mg daily, blood pressures have been stable Orthostatics were positive on admission, repeat negative Chest XR showed no acute cardiopulmonary pathology CT head showed no acute intracranial findings MRI was ordered in the ER due to reported dizziness and to rule out underlying intracranial process given the patient's history of metastatic cancer, however unable to obtain given pacemaker Echo ordered to evaluate heart function: LVEF 35-40% with normal diastolic dysfunction Patient follows with primary advertising campaign manager Dr. Meraz. Meclizine dose increased PT and OT evaluation, no further intervention required Patient had another syncopal episode on 07/07, see rapid response note. Likely vasovagal vs orthostatic hypotension vs bradycardia vs other Evaluated by cardiology. Spironolactone and lasix DC, lisinopril dose decreased to 5 mg daily. Continue asa and jardiance. Pacemaker to be interrogated today. Per patient this was placed in october 2019 at [facility]. (3) Heart failure with reduced ejection fraction: Code(s): I50.20 - Unspecified systolic (congestive) heart failure Status: Acute Assessment and Plan: Echo ordered to evaluate heart function: LVEF 35-40% with normal diastolic dysfunction Patient follows with primary advertising campaign manager Dr. Meraz. Cardiology consulted Due to orthostatic hypotension lasix and spironolactone was dc lisinopril dose decreased to 5 mg daily patient cannot tolerate a beta nathaniel as his heart rate lowered into the 30s today Continue asa and jardiance (4) Orthostatic hypotension: Code(s): I95.1 - Orthostatic hypotension Status: Acute Assessment and Plan: Positive on admission Resolved with fluids (5) Concussion with loss of consciousness: Qualifiers: Encounter type: initial encounter Qualified Code(s): S06.0X9A - Concussion with loss of consciousness of unspecified duration, initial encounter Code(s): S06.0X9A - Concussion with loss of consciousness of unspecified duration, initial encounter Status: Acute Assessment and Plan: Head CT showed no acute intracranial findings P.r.n. 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 since 2019 and recent diagnosis of hematologic cancer currently undergoing treatment for both cancers at [facility] Iron panel WNL Started on B12 supplementation for B12 deficiency, folate WNL Daily CBC No signs of acute bleeding or evidence of infection (7) Type 2 diabetes mellitus with hyperglycemia, without long-term current use of insulin: Code(s): E11.65 - Type 2 diabetes mellitus with hyperglycemia Status: Acute Assessment and Plan: He continues have elevated blood glucose levels and notes he had a recent discussion with his primary care provider last visit were she increased his metformin dose to 1000 mg twice a day. Will restart this medication and monitor blood glucose levels. - hypoglycemia protocol - POC blood glucose ACHS - home medication - metformin 1000 mg BID - correct regimen ordered - mod dose TIDWM and HS - A1C 8.4 Given patients cocurrent HFrEF will start Jardiance 10 mg daily which will subsequently help with blood glucose control. Glucose levels much better controlled. Continue to monitor. (8) B12 deficiency: Code(s): E53.8 - Deficiency of other specified B group vitamins Status: Acute Assessment and Plan: A portion of the patient's peripheral neuropathy may also be due to B12 deficiency. B12 < 159 Started on B12 supplementation, 1000 mcg PO daily and 1000 mcg IM weekly (9) Chronic eustachian tube dysfunction: Qualifiers: Laterality: bilateral Qualified Code(s): H69.93 - Unspecified Eustachian tube disorder, bilateral Code(s): H69.90 - Unspecified Eustachian tube disorder, unspecified ear Status: Acute Assessment and Plan: Patient reportedly had evidence of retracted tympanic membranes bilaterally. He likely has some component of eustachian tube dysfunction. Per chart review prior hospitalist performed osteopathic technique with resolution of the pressure sensation in his left ear. He did not have as much of an improvement with the right ear. Continue Zyrtec (10) Neck pain: Code(s): M54.2 - Cervicalgia Status: Acute Assessment and Plan: C spine CT showed no acute osseous abnormality of the cervical spine and multilevel degenerative disc disease. Likely related to patients acute injury resulting in whiplash, no tingling/numbness or shooting pains noted to the extremities Continue to work with PT/OT Tylenol and a K-pad. Denies any neck pain during assessment as well as any tingling/numbness or shooting pains to the extremities. Time Spent With Patient Time with patient: 25 - 35 minutes Subjective Date/time seen: 07/08/24 08:43 Interval history: 79-year-old male with a past medical history of essential hypertension, type 2 diabetes mellitus, diabetic peripheral neuropathy, obstructive sleep apnea, and what sounds like colon cancer with metastases to the liver since 2019 and recent diagnosis of hematologic cancer currently undergoing treatment for both cancers at [facility] who presented to the hospital from [facility] via EMS after syncopal event. Patient is pleasant lying comfortably in bed. He remains alert and oriented x3 during assessment. He notes that he is feeling much better today and has no complaints denying chest pain, shortness a breath, palpitations, lightheadedness/dizziness/faint, nausea/vomiting, abdominal pain. He states that he was able to ambulate throughout his room without noted dizziness or lightheadedness. Patient is to have his pacemaker interrogated today. He states that this was placed in October of 2019 at [facility]. Review of Systems Review of Systems: All systems reviewed & are unremarkable except as noted in HPI and below Exam Narrative: AF HR 65 RR 16 Spo2 99 BP 137/85 General: male in no acute respiratory distress who is nontoxic appearing, lying semi recumbent in bed. HEENT: Normocephalic. Atraumatic. Extraocular movement intact. Sclera clear and anicteric. No facial asymmetry. Chest: Lungs are clear to auscultation bilaterally. No wheezes or crackles. CV: Heart was regular rate and rhythm. Abd: Abdomen was soft. Nontender. Nondistended. Positive bowel sounds. Ext: No clubbing, cyanosis, or edema. DP pulses bilaterally. Neuro: Patient is alert and oriented x4. Speech is clear. Objective Data Vital Signs Vital Signs: Vital Signs - 24 hr 07/07/24 09:29 07/07/24 09:59 07/07/24 10:00 Temperature 97.2 F L 97.1 F L Pulse Rate 77 72 78 Respiratory Rate 12 18 18 Blood Pressure 128/72 139/88 131/80 Pulse Oximetry 99 95 96 Oxygen Delivery Room Air 07/07/24 12:00 07/07/24 14:00 07/07/24 16:00 Temperature 96.6 F L Pulse Rate 67 62 78 Respiratory Rate 16 Blood Pressure 126/63 Pulse Oximetry 97 Oxygen Delivery 07/07/24 20:00 07/07/24 20:00 07/07/24 22:00 Temperature 97.8 F Pulse Rate 66 70 Respiratory Rate 18 Blood Pressure 91/59 L 152/85 H Pulse Oximetry 100 Oxygen Delivery 07/08/24 00:00 07/08/24 04:00 07/08/24 06:00 Temperature 97 F L Pulse Rate 62 62 69 Respiratory Rate 18 Blood Pressure 150/72 H Pulse Oximetry 97 Oxygen Delivery Intake/Output Intake/Output: Intake & Output 07/05/24 07/06/24 07/07/24 07/08/24 23:59 23:59 23:59 23:59 Intake Total 2971.7 1020 770 290 Output Total 8995 453 4807 600 Balance 1871.7 905 -975 -310 Meds/Results Medications: Active Medications Generic Name Dose Route Start Last Admin Trade Name Freq PRN Reason Stop Dose Admin Acetaminophen 650 mg 07/04/24 03:38 07/05/24 05:43 Acetaminophen 325 Mg Tablet PO 650 mg Q4H PRN Administration pain 1-3 Aspirin 81 mg 07/04/24 09:00 07/07/24 08:43 Aspirin 81 Mg Enteric Tablet PO 81 mg DAILY ILYA Administration Atorvastatin Calcium 20 mg 07/03/24 21:05 07/07/24 17:23 Atorvastatin 20 Mg Tablet PO 20 mg QPM ILYA Administration Cyanocobalamin 1,000 mcg 07/10/24 09:00 Cyanocobalamin Inj 1,000 Mcg/Ml Vial IM WEEKLY ILYA Cyanocobalamin 1,000 mcg 07/04/24 09:00 07/07/24 08:44 Cyanocobalamin 1,000 Mcg Tablet PO 1,000 mcg QAM ILYA Administration Dextrose 12.5 gm 07/03/24 21:01 Dextrose 50% 25 Gm/50 Ml Syringe IV PUSH PRN PRN Hypoglycemia Protocol Empagliflozin 10 mg 07/07/24 09:00 07/07/24 08:43 Empagliflozin 10 Mg Tablet PO 10 mg DAILY ILYA Administration Glucagon 1 mg 07/03/24 21:01 Glucagon For Inj 1 Mg Vial IM PRN PRN Hypoglycemia Protocol Glucose 15 gm 07/03/24 21:01 Glucose Oral Gel 15 Gm Of Glucse In 37.5 Gm Tube PO PRN PRN Hypoglycemia Protocol Dextrose 1,000 mls @ 100 mls/hr 07/03/24 21:01 Dextrose 5% 1,000 Ml IVPB PRN PRN Hypoglycemia Protocol Cefepime HCl 1 gm in 50 mls @ 100 mls/hr 07/07/24 14:00 07/08/24 03:23 Maxipime 1 Gm/Ns 50 Ml IVPB Infused Q12H ILYA Infusion Vancomycin HCl 1,500 mg in 500 mls @ 250 mls/hr 07/08/24 09:00 Vancomycin 1,500 Mg/Ns 500 Ml IVPB Q18H ILYA Insulin Aspart 1 - 3 units 07/04/24 21:00 07/07/24 21:45 Insulin Aspart (*Bkc) 100 Units/Ml SUB-Q Not Given HS [facility] Protocol Insulin Aspart 3 - 6 units 07/04/24 08:00 07/07/24 17:23 Insulin Aspart (*Bkc) 100 Units/Ml SUB-Q Not Given TIDWM [facility] Protocol Lisinopril 5 mg 07/08/24 09:00 Lisinopril 5 Mg Tablet PO DAILY ILYA Loratadine 10 mg 07/04/24 14:05 07/07/24 08:44 Loratadine 10 Mg Tablet PO 10 mg QAM ILYA Administration Magnesium Oxide 400 mg 07/04/24 09:00 07/07/24 08:44 Magnesium Oxide 400 Mg Tablet PO 400 mg DAILY ILYA Administration Meclizine HCl 12.5 mg 07/06/24 17:00 07/07/24 17:23 Meclizine Hcl 12.5 Mg Tablet PO 12.5 mg TID ILYA Administration Metformin HCl 1,000 mg 07/06/24 17:00 07/07/24 17:23 Metformin Hcl 500 Mg Tablet PO 1,000 mg BIDWM ILYA Administration Metronidazole 500 mg 07/07/24 14:00 07/08/24 05:05 Metronidazole 500 Mg Tablet PO 500 mg Q8HR ILYA Administration Perflutren Lipid Microsphere 0 ml 07/05/24 14:50 Perflutren Lipid Microspheres 1.5 Ml Vial Diluted To 10 Ml Total Volume IV PUSH 07/08/24 14:50 ONCE PRN adequate visualization Protocol Radiology Results: ITS Impressions Cervical Spine CT 07/03/24 16:43 IMPRESSION: No acute osseous abnormality cervical spine. Multilevel degenerative disc disease. Chest X-Ray 07/07/24 09:49 Impression: 1: No acute cardiopulmonary disease. Head CT 07/07/24 10:12 IMPRESSION: 1. No acute intracranial abnormality. 2: Moderate sinus disease primarily involving the left maxillary sinus. Chest/Abdomen/Pelvis CT 07/07/24 20:16 IMPRESSION: Small bilateral pleural effusions. Hepatomegaly. Indeterminate density 2.3 cm left liver lobe lesion, consider MRI of the liver for further characterization. Rectal wall thickening as can be seen with proctitis. Distended urinary bladder with mild inflammation. Correlate for symptoms of urinary retention and with urinalysis. Labs Labs: Laboratory Results - last 24 hr 07/07/24 07/07/24 07/07/24 08:47 09:18 09:35 WBC 4.1 L RBC 3.28 L Hgb 11.5 L Hct 34.2 L MCV 104.3 H MCH 35.1 H MCHC 33.6 RDW 16.4 H Plt Count 113 L MPV 10.3 % Immature Plt Fraction 5.3 Sodium Potassium Chloride Carbon Dioxide Anion Gap BUN Creatinine Estim Creat Clear Calc Estimated GFR Glucose POC Capillary Glucose 212 H 239 H Lactic Acid 3.7 H Calcium Magnesium Iron TIBC % Saturation Total Bilirubin AST ALT Alkaline Phosphatase Troponin I 0.053 H* Total Protein Albumin Urine Color Urine Appearance Urine pH Ur Specific [place] Urine Protein Urine Glucose (UA) Urine Ketones Ur Blood (Man) Urine Nitrate Urine Bilirubin Urine Urobilinogen Ur Leukocyte Esterase Nasal MRSA (PCR) 07/07/24 07/07/24 07/07/24 09:36 11:48 12:33 WBC RBC Hgb Hct MCV MCH MCHC RDW Plt Count MPV % Immature Plt Fraction Sodium 138 Potassium 3.2 L Chloride 102 Carbon Dioxide 22 Anion Gap 14 H BUN 10 Creatinine 0.73 Estim Creat Clear Calc 74 Estimated GFR > 60 Glucose 233 H POC Capillary Glucose 236 H Lactic Acid 4.9 H* Calcium 8.5 Magnesium 1.6 Iron TIBC % Saturation Total Bilirubin 4.2 H AST 21 ALT 17 Alkaline Phosphatase 68 Troponin I 0.033 D Total Protein 6.0 L Albumin 3.9 Urine Color Urine Appearance Urine pH Ur Specific [place] Urine Protein Urine Glucose (UA) Urine Ketones Ur Blood (Man) Urine Nitrate Urine Bilirubin Urine Urobilinogen Ur Leukocyte Esterase Nasal MRSA (PCR) 07/07/24 07/07/24 07/07/24 14:29 15:46 16:15 WBC RBC Hgb Hct MCV MCH MCHC RDW Plt Count MPV % Immature Plt Fraction Sodium Potassium Chloride Carbon Dioxide Anion Gap BUN Creatinine Estim Creat Clear Calc Estimated GFR Glucose POC Capillary Glucose Lactic Acid Calcium Magnesium Iron 61 TIBC 296 % Saturation 21 Total Bilirubin AST ALT Alkaline Phosphatase Troponin I Total Protein Albumin Urine Color Yellow Urine Appearance Clear Urine pH 5.5 Ur Specific [place] 1.026 Urine Protein Negative Urine Glucose (UA) 3+ H Urine Ketones Trace H Ur Blood (Man) Negative Urine Nitrate Negative Urine Bilirubin Negative Urine Urobilinogen 0.2 Ur Leukocyte Esterase Negative Nasal MRSA (PCR) Not detected 07/07/24 07/07/24 07/08/24 16:37 21:32 05:00 WBC 3.6 L RBC 2.82 L Hgb 10.0 L Hct 29.2 L MCV 103.5 H MCH 35.5 H MCHC 34.2 RDW 16.5 H Plt Count 88 L MPV 10.3 % Immature Plt Fraction 4.7 Sodium 140 Potassium 3.4 Chloride 105 Carbon Dioxide 24 Anion Gap 11 BUN 11 Creatinine 0.72 Estim Creat Clear Calc 75 Estimated GFR > 60 Glucose 156 H POC Capillary Glucose 172 H 165 H Lactic Acid 1.5 Calcium 8.3 L Magnesium Iron TIBC % Saturation Total Bilirubin 3.9 H AST 21 ALT 15 Alkaline Phosphatase 55 Troponin I Total Protein 6.0 L Albumin 3.6 Urine Color Urine Appearance Urine pH Ur Specific [place] Urine Protein Urine Glucose (UA) Urine Ketones Ur Blood (Man) Urine Nitrate Urine Bilirubin Urine Urobilinogen Ur Leukocyte Esterase Nasal MRSA (PCR) Quality VTE Prophylaxis VTE prophylaxis: mechanical ordered (SCDs)
[2024-07-08 08:47] LABS: Glucose Point of Care 147 mg/dl (65-105)
[2024-07-08] MEDS: metFORMIN HCL 500 MG TABLET 1000 MG PO ×2 (09:12→17:37)
[2024-07-08] MEDS: MAGNESIUM OXIDE 400 MG TABLET PO (09:12)
[2024-07-08] MEDS: ASPIRIN 81 MG ENTERIC TABLET PO (09:12)
[2024-07-08] MEDS: LORATADINE 10 MG TABLET PO (09:13)
[2024-07-08] MEDS: MECLIZINE HCL 12.5 MG TABLET PO ×3 (09:13→17:37)
[2024-07-08] MEDS: EMPAGLIFLOZIN 10 MG TABLET PO (09:13)
[2024-07-08] MEDS: lisinopriL 5 MG TABLET PO (09:13)
[2024-07-08] MEDS: CYANOCOBALAMIN 1,000 MCG TABLET 1000 MCG PO (09:13)
[2024-07-08 11:50] LABS: Glucose Point of Care 184 mg/dl (65-105)
--- NOTE | 2024-07-08 13:41 | PC.NURSE ---
RN interrogated [employer] pacemaker. contacted [employer] at [phone]. states approx. 10 minutes for pacemaker interrogation to be faxed to this facility. Tech support can be contacted at [phone]. Information Relayed to primary RN
[2024-07-08 16:47] LABS: Glucose Point of Care 169 mg/dl (65-105)
[2024-07-08] MEDS: ATORVASTATIN 20 MG TABLET PO (17:37)
[2024-07-08 21:26] LABS: Glucose Point of Care 183 mg/dl (65-105)
[2024-07-09] VITALS (14 sets, daily range): BP systolic 107–145; BP diastolic 60–75; PULSE 59–105; RESP 16–20; TEMP 36.2–36.6; O2SAT 98–100
[2024-07-09] MEDS: CEFEPIME 1 GM/NS 50 ML 1 GM/50 ML BAG IVPB ×2 (01:33→12:52)
[2024-07-09] MEDS: metroNIDAZOLE 500 MG TABLET PO ×3 (05:21→20:22)
[2024-07-09 05:36] LABS: Hematocrit 28.9 % (42.0-52.0); Hemoglobin 9.7 g/dL (14.0-18.0); Immature Platelet Fraction Pct 4.4 % (0.9-11.2); Mean Corpuscular HGB Conc 33.6 g/dl (32-36); Mean Corpuscular Hemoglobin 35.4 pg (26-34); Mean Corpuscular Volume 105.5 fl (80-100); Mean Platelet Volume 10.5 fl (7.4-10.4); Platelet Count Result 82 k/mm3 (150-375); Red Blood Count 2.74 M/mm3 (4.6-6.20); Red Cell Distribution Width 16.5 % (11.5-14.5); White Blood Count 3.2 K/mm3 (4.5-10.0)
[2024-07-09 05:47] LABS: Alanine Aminotransferase 14 U/L (6-50); Albumin Level 3.5 g/dL (3.5-5.1); Alkaline Phosphatase 54 U/L (38-126); Anion Gap 11 mmol/L (4-12); Aspartate Amino Transferase 21 U/L (17-59); Bilirubin,Total 3.8 mg/dL (0.2-1.3); Blood Urea Nitrogen 14 mg/dL (9-20); Calcium 8.5 mg/dL (8.4-10.2); Carbon Dioxide 23 mmol/L (22-30); Chloride 104 mmol/L (98-107); Estimated CRCL calculation 75 ml/min; Estimated Glomerular Filt Rate > 60; Glucose 140 mg/dL (65-110); Potassium 3.6 mmol/L (3.4-5.0); Sodium 138 mmol/L (137-145)
--- NOTE | 2024-07-09 08:45 | P.PNIM_ITS ---
Progress Note: A&P Assessment and Plan (1) Lactic acidosis: Code(s): E87.20 - Acidosis, unspecified Status: Acute Assessment and Plan: Lactic acid elevated. 3.7>4.9, received 1L bolus and has returned to WNL. No obvious signs of infection. However will obtain CT chest/abdomen/pelvis, blood cultures, MRSA swab and start empiric antibiotics with vanc/cefe/flagly. CT chest/abdomen/pelvis showed small bilateral pleural effusions, hepatomegaly, liver lesions (known liver cancer), rectal wall thickening, and a distended urinary bladder with mild inflammation UA unremarkable Blood cultures obtained on 07/07: pending Vancomycin DC as MRSA negative and no signs of pneumonia on imaging Remains on cefe and flagyl, likely going to DC on augmentin Will obtain a CBC with diff in the am to evaluate neutrophils and if any band shift present (2) Syncope: Code(s): R55 - Syncope and collapse Status: Acute Assessment and Plan: Syncopal episode resulting in head strike with laceration on admission Likely due to a combination of hypovolemia and orthostatic hypotension. May have some component of underlying orthostatic hypotension due to autonomic dysfunction given his history of peripheral neuropathy. Resume lasix 40 mg BID and spironolactone 25 mg daily, blood pressures have been stable Orthostatics were positive on admission, repeat negative Chest XR showed no acute cardiopulmonary pathology CT head showed no acute intracranial findings MRI was ordered in the ER due to reported dizziness and to rule out underlying intracranial process given the patient's history of metastatic cancer, however unable to obtain given pacemaker Echo ordered to evaluate heart function: LVEF 35-40% with normal diastolic dysfunction Patient follows with primary elect equip maint eng Dr. Meraz. Meclizine dose increased PT and OT evaluation, no further intervention required Patient had another syncopal episode on 07/07, see rapid response note. Likely vasovagal vs orthostatic hypotension vs bradycardia vs other Evaluated by cardiology. Spironolactone and lasix DC, lisinopril dose decreased to 5 mg daily. Continue asa and jardiance. Pacemaker to be interrogated today. Per patient this was placed in october 2019 at [facility]. Cardiology to call [employer] to raise the lower limit (3) Heart failure with reduced ejection fraction: Code(s): I50.20 - Unspecified systolic (congestive) heart failure Status: Acute Assessment and Plan: Echo ordered to evaluate heart function: LVEF 35-40% with normal diastolic dysfunction Patient follows with primary elect equip maint eng Dr. Meraz. Cardiology consulted Due to orthostatic hypotension lasix and spironolactone was dc lisinopril dose decreased to 5 mg daily patient cannot tolerate a beta nathaniel as his heart rate lowered into the 30s today Continue asa and jardiance (4) Orthostatic hypotension: Code(s): I95.1 - Orthostatic hypotension Status: Acute Assessment and Plan: Positive on admission Recurred, started on IV fluids (5) Concussion with loss of consciousness: Qualifiers: Encounter type: initial encounter Qualified Code(s): S06.0X9A - Concussion with loss of consciousness of unspecified duration, initial encounter Code(s): S06.0X9A - Concussion with loss of consciousness of unspecified duration, initial encounter Status: Acute Assessment and Plan: Head CT showed no acute intracranial findings P.r.n. Tylenol Neurochecks (6) Pancytopenia: Code(s): D61.818 - Other pancytopenia Status: Acute Assessment and Plan: Secondary to colon cancer with metastases to the liver since 2019 and recent diagnosis of hematologic cancer currently undergoing treatment for both cancers at [facility] ([facility] Iron panel WNL Started on B12 supplementation for B12 deficiency, folate WNL Daily CBC No signs of acute bleeding or evidence of infection (7) Type 2 diabetes mellitus with hyperglycemia, without long-term current use of insulin: Code(s): E11.65 - Type 2 diabetes mellitus with hyperglycemia Status: Acute Assessment and Plan: He continues have elevated blood glucose levels and notes he had a recent discussion with his primary care provider last visit were she increased his metformin dose to 1000 mg twice a day. Will restart this medication and monitor blood glucose levels. - hypoglycemia protocol - POC blood glucose ACHS - home medication - metformin 1000 mg BID - correct regimen ordered - mod dose TIDWM and HS - A1C 8.4 Given patients cocurrent HFrEF will start Jardiance 10 mg daily which will subsequently help with blood glucose control. Glucose levels much better controlled. Continue to monitor. (8) B12 deficiency: Code(s): E53.8 - Deficiency of other specified B group vitamins Status: Acute Assessment and Plan: A portion of the patient's peripheral neuropathy may also be due to B12 deficiency. B12 < 159 Started on B12 supplementation, 1000 mcg PO daily and 1000 mcg IM weekly (9) Chronic eustachian tube dysfunction: Qualifiers: Laterality: bilateral Qualified Code(s): H69.93 - Unspecified Eustachian tube disorder, bilateral Code(s): H69.90 - Unspecified Eustachian tube disorder, unspecified ear Status: Acute Assessment and Plan: Patient reportedly had evidence of retracted tympanic membranes bilaterally. He likely has some component of eustachian tube dysfunction. Per chart review prior hospitalist performed osteopathic technique with resolution of the pressure sensation in his left ear. He did not have as much of an improvement with the right ear. Continue Zyrtec (10) Neck pain: Code(s): M54.2 - Cervicalgia Status: Acute Assessment and Plan: C spine CT showed no acute osseous abnormality of the cervical spine and multilevel degenerative disc disease. Likely related to patients acute injury resulting in whiplash, no tingling/numbness or shooting pains noted to the extremities Continue to work with PT/OT Tylenol and a K-pad. Denies any neck pain during assessment as well as any tingling/numbness or shooting pains to the extremities. Time Spent With Patient Time with patient: 25 - 35 minutes Subjective Date/time seen: 07/09/24 08:45 Interval history: 79-year-old male with a past medical history of essential hypertension, type 2 diabetes mellitus, diabetic peripheral neuropathy, obstructive sleep apnea, and what sounds like colon cancer with metastases to the liver since 2019 and recent diagnosis of hematologic cancer currently undergoing treatment for both cancers at [facility] ([facility]) who presented to the hospital from [facility] via EMS after syncopal event. Patient is pleasant lying comfortably in bed. Uses no complaints denying chest pain, shortness a breath, palpitations, nausea/vomiting, abdominal pain, and dizziness/lightheadedness. Discussed patient with Cardiology and very plan to call [employer] to raise his lower limit on his pacemaker given ongoing bradycardia. Was planning on discharging patient however orthostatic hypotension with tachycardia and will give him IV fluids to reassess. Review of Systems Review of Systems: All systems reviewed & are unremarkable except as noted in HPI and below Exam Narrative: AF HR 74 RR 18 SPO2 100 BP 142/75 General: male in no acute respiratory distress who is nontoxic appearing, lying semi recumbent in bed. HEENT: Normocephalic. Atraumatic. Extraocular movement intact. Sclera clear and anicteric. No facial asymmetry. Chest: Lungs are clear to auscultation bilaterally. No wheezes or crackles. CV: Heart was regular rate and rhythm. Abd: Abdomen was soft. Nontender. Nondistended. Positive bowel sounds. Ext: No clubbing, cyanosis, or edema. DP pulses bilaterally. Neuro: Patient is alert and oriented x4. Speech is clear. Objective Data Vital Signs Vital Signs: Vital Signs - 24 hr 07/08/24 09:17 07/08/24 09:17 07/08/24 10:14 Temperature Pulse Rate 59 L 63 Respiratory Rate Blood Pressure 136/69 Pulse Oximetry Oxygen Delivery Room Air 07/08/24 10:15 07/08/24 10:17 07/08/24 12:00 Temperature Pulse Rate 69 84 65 Respiratory Rate Blood Pressure 136/80 122/72 Pulse Oximetry Oxygen Delivery 07/08/24 15:08 07/08/24 16:00 07/08/24 20:00 Temperature 97.9 F Pulse Rate 65 70 Respiratory Rate 16 Blood Pressure 137/85 122/70 Pulse Oximetry 99 Oxygen Delivery 07/08/24 20:00 07/08/24 21:41 07/08/24 21:56 Temperature 97.1 F L Pulse Rate 71 75 Respiratory Rate 18 Blood Pressure 147/74 H 150/74 H Pulse Oximetry 100 Oxygen Delivery 07/09/24 00:00 07/09/24 04:00 07/09/24 05:54 Temperature 97.2 F L Pulse Rate 66 59 L 78 Respiratory Rate 18 Blood Pressure 145/72 H Pulse Oximetry 99 Oxygen Delivery Intake/Output Intake/Output: Intake & Output 07/06/24 07/07/24 07/08/24 07/09/24 23:59 23:59 23:59 23:59 Intake Total 0863 763 9186 50 Output Total 400 1050 1900 775 Balance 620 -280 -840 -725 Meds/Results Medications: Active Medications Generic Name Dose Route Start Last Admin Trade Name Freq PRN Reason Stop Dose Admin Acetaminophen 650 mg 07/04/24 03:38 07/05/24 05:43 Acetaminophen 325 Mg Tablet PO 650 mg Q4H PRN Administration pain 1-3 Aspirin 81 mg 07/04/24 09:00 07/08/24 09:12 Aspirin 81 Mg Enteric Tablet PO 81 mg DAILY ILYA Administration Atorvastatin Calcium 20 mg 07/03/24 21:05 07/08/24 17:37 Atorvastatin 20 Mg Tablet PO 20 mg QPM ILYA Administration Cyanocobalamin 1,000 mcg 07/10/24 09:00 Cyanocobalamin Inj 1,000 Mcg/Ml Vial IM WEEKLY ILYA Cyanocobalamin 1,000 mcg 07/04/24 09:00 07/08/24 09:13 Cyanocobalamin 1,000 Mcg Tablet PO 1,000 mcg QAM ILYA Administration Dextrose 12.5 gm 07/03/24 21:01 Dextrose 50% 25 Gm/50 Ml Syringe IV PUSH PRN PRN Hypoglycemia Protocol Empagliflozin 10 mg 07/07/24 09:00 07/08/24 09:13 Empagliflozin 10 Mg Tablet PO 10 mg DAILY ILYA Administration Glucagon 1 mg 07/03/24 21:01 Glucagon For Inj 1 Mg Vial IM PRN PRN Hypoglycemia Protocol Glucose 15 gm 07/03/24 21:01 Glucose Oral Gel 15 Gm Of Glucse In 37.5 Gm Tube PO PRN PRN Hypoglycemia Protocol Dextrose 1,000 mls @ 100 mls/hr 07/03/24 21:01 Dextrose 5% 1,000 Ml IVPB PRN PRN Hypoglycemia Protocol Cefepime HCl 1 gm in 50 mls @ 100 mls/hr 07/07/24 14:00 07/09/24 02:03 Maxipime 1 Gm/Ns 50 Ml IVPB Infused Q12H ILYA Infusion Insulin Aspart 1 - 3 units 07/04/24 21:00 07/08/24 21:20 Insulin Aspart (*Bkc) 100 Units/Ml SUB-Q Not Given HS [facility] Protocol Insulin Aspart 3 - 6 units 07/04/24 08:00 07/08/24 17:37 Insulin Aspart (*Bkc) 100 Units/Ml SUB-Q Not Given TIDWM [facility] Protocol Lisinopril 5 mg 07/08/24 09:00 07/08/24 09:13 Lisinopril 5 Mg Tablet PO 5 mg DAILY ILYA Administration Loratadine 10 mg 07/04/24 14:05 07/08/24 09:13 Loratadine 10 Mg Tablet PO 10 mg QAM [facility] Administration Magnesium Oxide 400 mg 07/04/24 09:00 07/08/24 09:12 Magnesium Oxide 400 Mg Tablet PO 400 mg DAILY ILYA Administration Meclizine HCl 12.5 mg 07/06/24 17:00 07/08/24 17:37 Meclizine Hcl 12.5 Mg Tablet PO 12.5 mg TID ILYA Administration Metformin HCl 1,000 mg 07/06/24 17:00 07/08/24 17:37 Metformin Hcl 500 Mg Tablet PO 1,000 mg BIDWM ILYA Administration Metronidazole 500 mg 07/07/24 14:00 07/09/24 05:21 Metronidazole 500 Mg Tablet PO 500 mg Q8HR ILYA Administration Radiology Results: ITS Impressions Cervical Spine CT 07/03/24 16:43 IMPRESSION: No acute osseous abnormality cervical spine. Multilevel degenerative disc disease. Chest X-Ray 07/07/24 09:49 Impression: 1: No acute cardiopulmonary disease. Head CT 07/07/24 10:12 IMPRESSION: 1. No acute intracranial abnormality. 2: Moderate sinus disease primarily involving the left maxillary sinus. Chest/Abdomen/Pelvis CT 07/07/24 20:16 IMPRESSION: Small bilateral pleural effusions. Hepatomegaly. Indeterminate density 2.3 cm left liver lobe lesion, consider MRI of the liver for further characterization. Rectal wall thickening as can be seen with proctitis. Distended urinary bladder with mild inflammation. Correlate for symptoms of urinary retention and with urinalysis. Labs Labs: Laboratory Results - last 24 hr 07/08/24 07/08/24 07/08/24 08:21 11:43 16:37 WBC RBC Hgb Hct MCV MCH MCHC RDW Plt Count MPV % Immature Plt Fraction Sodium Potassium Chloride Carbon Dioxide Anion Gap BUN Creatinine Estim Creat Clear Calc Estimated GFR Glucose POC Capillary Glucose 147 H 184 H 169 H Calcium Total Bilirubin AST ALT Alkaline Phosphatase Total Protein Albumin 07/08/24 07/09/24 21:19 04:45 WBC 3.2 L RBC 2.74 L Hgb 9.7 L Hct 28.9 L MCV 105.5 H MCH 35.4 H MCHC 33.6 RDW 16.5 H Plt Count 82 L MPV 10.5 H % Immature Plt Fraction 4.4 Sodium 138 Potassium 3.6 Chloride 104 Carbon Dioxide 23 Anion Gap 11 BUN 14 Creatinine 0.72 Estim Creat Clear Calc 75 Estimated GFR > 60 Glucose 140 H POC Capillary Glucose 183 H Calcium 8.5 Total Bilirubin 3.8 H AST 21 ALT 14 Alkaline Phosphatase 54 Total Protein 6.0 L Albumin 3.5 Quality VTE Prophylaxis VTE prophylaxis: mechanical ordered (SCDs)
[2024-07-09 08:48] LABS: Glucose Point of Care 143 mg/dl (65-105)
[2024-07-09] MEDS: metFORMIN HCL 500 MG TABLET 1000 MG PO ×2 (08:55→18:06)
[2024-07-09] MEDS: ASPIRIN 81 MG ENTERIC TABLET PO (08:56)
[2024-07-09] MEDS: CYANOCOBALAMIN 1,000 MCG TABLET 1000 MCG PO (08:56)
[2024-07-09] MEDS: LORATADINE 10 MG TABLET PO (08:56)
[2024-07-09] MEDS: MECLIZINE HCL 12.5 MG TABLET PO ×3 (08:56→18:06)
[2024-07-09] MEDS: lisinopriL 5 MG TABLET PO (08:56)
[2024-07-09] MEDS: MAGNESIUM OXIDE 400 MG TABLET PO (08:56)
[2024-07-09] MEDS: EMPAGLIFLOZIN 10 MG TABLET PO (08:57)
[2024-07-09 11:48] LABS: Glucose Point of Care 220 mg/dl (65-105)
[2024-07-09] MEDS: INSULIN ASPART (*BKC) 100 UNITS/ML SUB-Q (12:53)
[2024-07-09 16:57] LABS: Glucose Point of Care 169 mg/dl (65-105)
[2024-07-09] MEDS: ATORVASTATIN 20 MG TABLET PO (18:06)
[2024-07-09] MEDS: SODIUM CHLORIDE 0.9% IV 1,000 ML 100 ML IV CONT (18:07)
[2024-07-09 21:26] LABS: Glucose Point of Care 185 mg/dl (65-105)
[2024-07-10] VITALS (9 sets, daily range): BP systolic 115–145; BP diastolic 66–78; PULSE 60–80; RESP 16–20; TEMP 36.1–36.6; O2SAT 96–99
[2024-07-10] MEDS: CEFEPIME 1 GM/NS 50 ML 1 GM/50 ML BAG IVPB ×2 (01:18→14:16)
[2024-07-10] MEDS: metroNIDAZOLE 500 MG TABLET PO ×2 (05:24→14:16)
[2024-07-10 05:59] LABS: Basophils Percent Auto 0.3 % (0.2-1.2); Eosinophils Absolute Auto 0.1 K/mm3 (0-0.3); Eosinophils Percent Auto 2.7 % (0-4.4); Hematocrit 29.1 % (42.0-52.0); Hemoglobin 9.7 g/dL (14.0-18.0); Immature Granulocyte Absolute 0.02 K/mm3 (0.00-0.031); Immature Granulocyte Percent A 0.7 % (0-0.5); Immature Platelet Fraction Pct 3.9 % (0.9-11.2); Lymphocytes Absolute Auto 0.18 K/mm3 (0.9-3.2); Mean Corpuscular HGB Conc 33.3 g/dl (32-36); Mean Corpuscular Hemoglobin 35.1 pg (26-34); Mean Corpuscular Volume 105.4 fl (80-100); Mean Platelet Volume 10.7 fl (7.4-10.4); Monocytes Absolute Auto 0.4 K/mm3 (0.1-0.6); Monocytes Percent Auto 13.3 % (2.6-8.5); Neutrophils Absolute Auto 2.3 K/mm3 (1.3-6.7); Platelet Count Result 80 k/mm3 (150-375); Red Blood Count 2.76 M/mm3 (4.6-6.20); Red Cell Distribution Width 16.4 % (11.5-14.5)
[2024-07-10 06:09] LABS: Alanine Aminotransferase 15 U/L (6-50); Albumin Level 3.5 g/dL (3.5-5.1); Alkaline Phosphatase 49 U/L (38-126); Anion Gap 9 mmol/L (4-12); Aspartate Amino Transferase 25 U/L (17-59); Bilirubin,Total 3.4 mg/dL (0.2-1.3); Blood Urea Nitrogen 12 mg/dL (9-20); Calcium 8.2 mg/dL (8.4-10.2); Carbon Dioxide 22 mmol/L (22-30); Chloride 107 mmol/L (98-107); Estimated CRCL calculation 83 ml/min; Estimated Glomerular Filt Rate > 60; Glucose 141 mg/dL (65-110); Potassium 3.6 mmol/L (3.4-5.0); Sodium 138 mmol/L (137-145)
[2024-07-10 07:11] LABS: Macrocytosis 1+ (NORMAL); Platelet Estimate Decreased (Adequate); Schistocytes None Seen
[2024-07-10 08:12] LABS: Glucose Point of Care 141 mg/dl (65-105)
[2024-07-10] MEDS: lisinopriL 5 MG TABLET PO (08:59)
[2024-07-10] MEDS: ASPIRIN 81 MG ENTERIC TABLET PO (08:59)
[2024-07-10] MEDS: CYANOCOBALAMIN INJ 1,000 MCG/ML VIAL 1000 MCG IM (08:59)
[2024-07-10] MEDS: metFORMIN HCL 500 MG TABLET 1000 MG PO ×2 (08:59→16:57)
[2024-07-10] MEDS: MECLIZINE HCL 12.5 MG TABLET PO ×3 (08:59→16:57)
[2024-07-10] MEDS: LORATADINE 10 MG TABLET PO (08:59)
[2024-07-10] MEDS: CYANOCOBALAMIN 1,000 MCG TABLET 1000 MCG PO (08:59)
[2024-07-10] MEDS: EMPAGLIFLOZIN 10 MG TABLET PO (08:59)
[2024-07-10] MEDS: MAGNESIUM OXIDE 400 MG TABLET PO (08:59)
[2024-07-10 11:33] LABS: Glucose Point of Care 232 mg/dl (65-105)
[2024-07-10] MEDS: INSULIN ASPART (*BKC) 100 UNITS/ML SUB-Q (12:35)
--- NOTE | 2024-07-10 13:42 | PC.NURSE ---
Spoke with Elena at [facility] for patients pacemaker. Cardiac provider would like lower [facility] to 50[facility]
--- NOTE | 2024-07-10 14:30 | PC.NURSE ---
Spoke with Dr. Pastrana regarding increasing lower limit for patients pacemaker. Informed him that Jessica did not feel it needed to be done. Instructions for them to contact him.
--- NOTE | 2024-07-10 15:07 | PC.NURSE ---
Senior Technical Manager for [employer] here and increased lower limit for pacemaker. Sheet for confirmation placed on the chart. MD aware of change.
--- NOTE | 2024-07-10 15:27 | PM.DS ---
DS: Admitting Diagnosis Discharge Date 07/10 Admitting Diagnosis syncopal episode DS: Discharge Diagnosis Discharge Diagnosis (1) Lactic acidosis: Code(s): E87.20 - Acidosis, unspecified Status: Acute (2) Syncope: Code(s): R55 - Syncope and collapse Status: Acute (3) Heart failure with reduced ejection fraction: Code(s): I50.20 - Unspecified systolic (congestive) heart failure Status: Acute (4) Orthostatic hypotension: Code(s): I95.1 - Orthostatic hypotension Status: Acute (5) Concussion with loss of consciousness: Qualifiers: Encounter type: initial encounter Qualified Code(s): S06.0X9A - Concussion with loss of consciousness of unspecified duration, initial encounter Code(s): S06.0X9A - Concussion with loss of consciousness of unspecified duration, initial encounter Status: Acute (6) Pancytopenia: Code(s): D61.818 - Other pancytopenia Status: Acute (7) Type 2 diabetes mellitus with hyperglycemia, without long-term current use of insulin: Code(s): E11.65 - Type 2 diabetes mellitus with hyperglycemia Status: Acute (8) B12 deficiency: Code(s): E53.8 - Deficiency of other specified B group vitamins Status: Acute (9) Chronic eustachian tube dysfunction: Qualifiers: Laterality: bilateral Qualified Code(s): H69.93 - Unspecified Eustachian tube disorder, bilateral Code(s): H69.90 - Unspecified Eustachian tube disorder, unspecified ear Status: Acute (10) Neck pain: Code(s): M54.2 - Cervicalgia Status: Acute DS: Summary Hospital Course Hospital Course: 79-year-old male with a past medical history of essential hypertension, type 2 diabetes mellitus, diabetic peripheral neuropathy, obstructive sleep apnea, and what sounds like colon cancer with metastases to the liver since 2019 and recent diagnosis of hematologic cancer currently undergoing treatment for both cancers at [facility] who presented to the hospital from [facility] via EMS after syncopal event. Discussed patient with Cardiology and very plan to call [employer] to raise his lower limit on his pacemaker given ongoing bradycardia. Orthostatic hypotension resolved with IV fluids. Rep came and changed setting to the pacemaker per cardiology request. Other card recommendation: DC spironolactone and furosemide Decrease lisinopril dose to 5 mg daily Continue aspirin Jardiance. Pt need a close f/u with his technology coach and PCP upon discharge. Take antibiotics for 7 more doses, next doese 07/10 9 pm- last dose 07/13 9pm # lactic acidosis Lactic acid elevated. 3.7>4.9, received 1L bolus and has returned to WNL. No obvious signs of infection. However will obtain CT chest/abdomen/pelvis, blood cultures, MRSA swab and start empiric antibiotics with vanc/cefe/flagly. CT chest/abdomen/pelvis showed small bilateral pleural effusions, hepatomegaly, liver lesions (known liver cancer), rectal wall thickening, and a distended urinary bladder with mild inflammation UA unremarkable Blood cultures obtained on 07/07: pending Vancomycin DC as MRSA negative and no signs of pneumonia on imaging Remains on cefe and flagyl, likely going to DC on augmentin # Pancytopenia: Secondary to colon cancer with metastases to the liver since 2019 and recent diagnosis of hematologic cancer currently undergoing treatment for both cancers at [facility] Iron panel WNL Started on B12 supplementation for B12 deficiency, folate WNL Daily CBC No signs of acute bleeding or evidence of infection # Type 2 diabetes mellitus with hyperglycemia, without long-term current use of insulin: He continues have elevated blood glucose levels and notes he had a recent discussion with his primary care provider last visit were she increased his metformin dose to 1000 mg twice a day. Will restart this medication and monitor blood glucose levels. - hypoglycemia protocol - POC blood glucose ACHS - home medication - metformin 1000 mg BID - correct regimen ordered - mod dose TIDWM and HS - A1C 8.4 #B12 deficiency: A portion of the patient's peripheral neuropathy may also be due to B12 deficiency. B12 < 159 Started on B12 supplementation, 1000 mcg PO daily Status at Discharge Functional status at discharge: independent ambulation Overall status at discharge: patient is progressing back to baseline Time Spent with Patient Time attestation: Total time spent providing and/or coordinating discharge services: Time spent: Greater than 30 minutes Exam Narrative: General: male in no acute respiratory distress who is nontoxic appearing, lying semi recumbent in bed. HEENT: Normocephalic. Atraumatic. Extraocular movement intact. Sclera clear and anicteric. No facial asymmetry. Chest: Lungs are clear to auscultation bilaterally. No wheezes or crackles. CV: Heart was regular rate and rhythm. Abd: Abdomen was soft. Nontender. Nondistended. Positive bowel sounds. Ext: No clubbing, cyanosis, or edema. DP pulses bilaterally. Neuro: Patient is alert and oriented x4. Speech is clear. Const: General: comfortable Other: No acute distress, well-developed well-nourished, appears stated age HENMT: Other: Poor dentition with multiple teeth that are broken off at the gumline with underlying dental caries noted no oral pharyngeal erythema, mucous membranes are tacky, crowded posterior oropharynx Eyes: Other: Pupils are equal and reactive, no scleral icterus, no significant conjunctival pallor Neck: Other: No JVD, no lymphadenopathy, erythema to the skin of the lower neck Resp: Other: Clear to auscultation bilaterally, no increased work of breathing Cardio: Other: Regular rate, regular rhythm, no murmurs GI: Other: Soft, nontender, nondistended, positive bowel sounds Skin: Other: No jaundice, no pallor Neuro: Other: Alert oriented x4, speech is clear, no facial asymmetry, pupils are equal and reactive, no localizing neurologic deficits noted during the course of conversation, normal deep tendon reflexes lower extremities, no pronator drift, decreased sensation to touch to bilateral feet Extrem: Other: No clubbing, cyanosis or edema, 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 Psych: Other: Loquacious, pleasant and cooperative, appropriate mood and affect, judgment and insight intact DS: Data Data Completed and Pending Completed studies during hospitalization: chest xray, CT abd/pelvis/chest Labs on day of discharge: Labs from last 24 hours 07/10/24 07/10/24 07/10/24 11:31 08:02 05:16 WBC 3.0 L RBC 2.76 L Hgb 9.7 L Hct 29.1 L MCV 105.4 H MCH 35.1 H MCHC 33.3 RDW 16.4 H Plt Count 80 L MPV 10.7 H Immature Gran % (Auto) 0.7 H Neut % (Auto) 77.0 H Lymph % (Auto) 6.0 L Waller % (Auto) 13.3 H Eos % (Auto) 2.7 Baso % (Auto) 0.3 Lymph # (Auto) 0.18 L Waller # (Auto) 0.4 Eos # (Auto) 0.1 Baso # (Auto) 0.0 Abs Immat Gran (auto) 0.02 Absolute Neuts (auto) 2.3 Absolute Nucleated RBC 0.000 Band Neutrophils % Not Reportable Nucleated RBC % 0.0 Platelet Estimate Decreased % Immature Plt Fraction 3.9 Macrocytosis 1+ Schistocytes None seen Sodium 138 Potassium 3.6 Chloride 107 Carbon Dioxide 22 Anion Gap 9 BUN 12 Creatinine 0.64 L Estim Creat Clear Calc 83 Estimated GFR > 60 Glucose 141 H POC Capillary Glucose 232 H 141 H Calcium 8.2 L Total Bilirubin 3.4 H AST 25 ALT 15 Alkaline Phosphatase 49 Total Protein 6.0 L Albumin 3.5 07/09/24 07/09/24 20:22 16:41 WBC RBC Hgb Hct MCV MCH MCHC RDW Plt Count MPV Immature Gran % (Auto) Neut % (Auto) Lymph % (Auto) Waller % (Auto) Eos % (Auto) Baso % (Auto) Lymph # (Auto) Waller # (Auto) Eos # (Auto) Baso # (Auto) Abs Immat Gran (auto) Absolute Neuts (auto) Absolute Nucleated RBC Band Neutrophils % Nucleated RBC % Platelet Estimate % Immature Plt Fraction Macrocytosis Schistocytes Sodium Potassium Chloride Carbon Dioxide Anion Gap BUN Creatinine Estim Creat Clear Calc Estimated GFR Glucose POC Capillary Glucose 185 H 169 H Calcium Total Bilirubin AST ALT Alkaline Phosphatase Total Protein Albumin Preliminary micro results at discharge 07/07/24 15:47 Blood Culture - Preliminary Blood 07/07/24 15:45 Blood Culture - Preliminary Blood Discharge Plan Discharge Attending physician on discharge: Babak Dunn Consulting providers: Ambrocio Pastrana Discharging Clinician: Yari Rodas Patient Disposition: Home with Home Health Service Activity: july shower Diet: heart healthy Discharge Instructions: Per Care Coordination, patient to discharge with [facility] ([phone]) for PT/ OT and halfway services. Please fax discharge instructions and medication sheet to [phone]. You were admitted for syncopal episode. You were dehydrated and received IV fluids. Cardiology saw you and recommended to Increase lower rate limit of the pacemaker to 50 beat per minute we stopped spironolactone and furosemide Decrease lisinopril dose to 5 mg daily Continue aspirin Jardiance. Please f/u with your PCPO and cardiology. If your symptoms continue and/or worsen-return right away. Patient Instructions: Antibiotic Form Patient Language: Tamazight Stand Alone Forms: General Discharge Information Follow-up/Referrals: Ambrocio Pastrana MD [Physician] - 1 Week (please f/u with you established technology coach) Rafaela,Trupti Jameson MD [Primary Care Provider] - 2 Weeks Discharge Medications: New amoxicillin-pot clavulanate 875-125 mg tablet 1 tablet PO Q12H Qty: 7 0RF Rx Instructions: last dose 07/13 9 pm cyanocobalamin (vitamin B-12) [Vitamin B-12] 1,000 mcg Tablet 1,000 mcg PO QAM Qty: 30 0RF lisinopril 5 mg Tablet 5 mg PO DAILY Qty: 90 0RF Continued metformin 500 mg tablet 1,000 mg PO BID aspirin 81 mg tablet,delayed release (DR/EC) 81 mg PO DAILY atorvastatin 20 mg tablet 20 mg PO QPM magnesium aspart,citrate,oxide 400 mg magnesium capsule 400 mg PO DAILY Discontinued spironolactone 25 mg tablet 25 mg PO DAILY lisinopril 20 mg tablet 20 mg PO DAILY furosemide 40 mg tablet 40 mg PO Q12H Date of admission: 07/05/24 15:08 Primary Care Provider: RafaelaTrupti Admitting Provider: Chas Shultz Attending physician on admission: Chas Shultz Condition: Stable Quality VTE Prophylaxis VTE prophylaxis: mechanical ordered (SCDs)
[2024-07-10] MEDS: ATORVASTATIN 20 MG TABLET PO (17:00)
[2024-07-10 17:29] LABS: Glucose Point of Care 168 mg/dl (65-105)
== END 2024-07-10 19:15 | disposition home health service (06) | DRG 312 ==
LOC: ANHED 17:40 → ANH3MED 18:44
PROVIDERS: Internal Medicine; Nurse Practitioner Gerontology; Student in an Organized Health Care Education/Training Program; Admitting Provider Family Medicine; Emergency Provider Emergency Medicine; PCP Family Medicine; Visit Provider Nurse Practitioner
DX: I95.1 Orthostatic hypotension (principal); S06.0X9A Concussion with loss of consciousness of unspecified duration, initial encounter; D61.818 Other pancytopenia; C18.9 Malignant neoplasm of colon, unspecified; C78.7 Secondary malignant neoplasm of liver and intrahepatic bile duct; C96.9 Malignant neoplasm of lymphoid, hematopoietic and related tissue, unspecified; I24.89 Other forms of acute ischemic heart disease; E87.21 Acute metabolic acidosis; R00.1 Bradycardia, unspecified; E11.65 Type 2 diabetes mellitus with hyperglycemia; S01.01XA Laceration without foreign body of scalp, initial encounter; W18.39XA Other fall on same level, initial encounter; E86.1 Hypovolemia; E53.8 Deficiency of other specified B group vitamins; D53.1 Other megaloblastic anemias, not elsewhere classified; H69.93 Unspecified Eustachian tube disorder, bilateral; M54.2 Cervicalgia; I10 Essential (primary) hypertension; E11.43 Type 2 diabetes mellitus with diabetic autonomic (poly)neuropathy; I51.89 Other ill-defined heart diseases; G47.33 Obstructive sleep apnea (adult) (pediatric); I25.10 Atherosclerotic heart disease of native coronary artery without angina pectoris; Z85.46 Personal history of malignant neoplasm of prostate; Z90.49 Acquired absence of other specified parts of digestive tract; Z96.1 Presence of intraocular lens; Z98.42 Cataract extraction status, left eye; Z98.41 Cataract extraction status, right eye; Z95.0 Presence of cardiac pacemaker
CPT/HCPCS: 12001; 36415; 70450; 71045; 71046; 71250; 72125; 74176; 80048; 80053; 81003; 82533; 82607; 82746; 82948; 83036; 83540; 83550; 83605; 83735; 84439; 84443; 84484; 85025; 85027; 85055; 87040; 87641; 93005; 93306; 96361; 96374; 96375; 97161; 97165; 97530; 97535; 99285; A9270; G0378; J0692; J1815; J2405; J2765; J3370; J3420; J3475; J3480; J7030; J7120